=== PATIENT | female | born 1935 | race Caucasian/White ===

== ENCOUNTER 2018-08-26 10:00 | Emergency (ER) | payer MEDICARE ==
--- NOTE | 2018-08-26 10:05 | UC ---
Complaint Female HPI - HPI Summary HPI Summary: 83 yo female presents with LLQ pain and left flank pain for the last 3 days. She describes the pain as constant in her LLQ/bladder and intermittently radiates to her left flank. Last BM was this morning and was normal - no blood. She denies injury or worsening pain with movement. She denies urinary burning, frequency, or pressure. She has applied a heating pad to the area, which helps a little. - History Of Current Complaint Chief Complaint: UCGU Stated Complaint: BACK PAIN Time Seen by Provider: 08/26/18 10:04 Hx Obtained From: Patient Onset/Duration: Gradual Onset Timing: Constant Severity Initially: Mild Severity Currently: Moderate Pain Intensity: 4 Pain Scale Used: 0-10 Numeric - Allergies/Home Medications Allergies/Adverse Reactions: Allergies Allergy/AdvReac Type Severity Reaction Status Date / Time metformin Allergy Diarrhea Verified 08/26/18 10:11 Home Medications: Home Medications Furosemide TAB* [Lasix TAB*] 20 mg PO DAILY 08/26/18 [History Confirmed 08/26/18 ] Linagliptin (NF) [Tradjenta (NF)] 5 mg PO DAILY 08/26/18 [History Confirmed ] Pioglitazone TAB* [Actos TAB*] 30 mg PO DAILY 08/26/18 [History Confirmed ] Rivaroxaban TAB(*) [Xarelto 15 mg(*)] 15 mg PO DAILY 08/26/18 [History Confirmed 08/26/18] PMH/Surg Hx/FS Hx/Imm Hx Endocrine History: Diabetes, Dyslipidemia Cardiovascular History: Cardiac Disease, Hypertension - Surgical History Surgical History: Yes Surgery Procedure, Year, and Place: FOOT SURGERY, LEG SURGERY - Social History Occupation: Retired Lives: With Family Alcohol Use: Weekly Alcohol Amount: WINE Substance Use Type: None Smoking Status (MU): Never Smoked Tobacco Review of Systems All Other Systems Reviewed And Are Negative: Yes Constitutional: Positive: Negative Skin: Positive: Negative Respiratory: Positive: Negative Cardiovascular: Positive: Negative Gastrointestinal: Positive: Other - LLQ pain Genitourinary: Positive: Negative Neurovascular: Positive: Negative Musculoskeletal: Positive: Other: - Low back pain Neurological: Positive: Negative Psychological: Positive: Negative Physical Exam - Summary Physical Exam Summary: GENERAL: NAD. WDWN. No pain distress. SKIN: No rashes, sores, lesions, or open wounds. No ecchymosis NECK: Supple. Nontender. No lymphadenopathy. CHEST: CTAB. No r/r/w. No accessory muscle use. Breathing comfortably and in no distress. CV: Pulses intact. Cap refill <2seconds ABDOMEN: Mild LLQ tenderness and left CVA tenderness. Soft. No distention or guarding. Bowel sounds present MSK: No change in pain with B/L LE flexion. Muscle spasm to left lumber paraspinal muscles. TTP. NEURO: Alert. PSYCH: Age appropriate behavior. Triage Information Reviewed: Yes Vital Signs: Vital Signs: Temp Pulse Resp BP Pulse Ox 98.2 F 110 18 159/129 99 08/26/18 10:03 08/26/18 10:03 08/26/18 10:03 08/26/18 10:03 08/26/18 10:03 Laboratory Tests 08/26/18 10:22 POC Urine Color Yellow POC Urine Clarity Slightly cloudy POC Urine pH 7.0 POC Ur Specif Palmer 1.010 POC Urine Protein Negative POC Ur Glucose (UA) Negative POC Urine Ketones Trace A POC Urine Blood Trace-intact A POC Urine Nitrite Negative POC Urine Bilirubin Negative POC Urine Urobilinogen 0.2 POC U Leukocyte Esteras 1+ A Vital Signs Reviewed: Yes Complaint Female Dx - Course Course Of Treatment: BP recheck 160/95 left arm sitting. UA with sign of infection, given pt's atypical UTI presentation and lack of urinary symptoms - a CT abd/pelvis was ordered. CT: IMPRESSION: #. Severe diverticulosis of the colon most marked at the sigmoid colon without findings of acute diverticulitis. #. Normal appendix documented. #. Negative for obstructive uropathy. #. No acute abdominal pelvic pathologic process evident. Will treat with Cipro for UTI and cover for remote likelihood of diverticulitis. Will rx for lidoderm patch to use on her back. Strongly encouraged to f/u with her PCP later this week for a recheck of her symptoms. - Differential Dx/Diagnosis Provider Diagnosis: UTI (urinary tract infection), Diverticulosis, Muscle spasm Discharge - Sign-Out/Discharge Documenting (check all that apply): Patient Departure All imaging exams completed and their final reports reviewed: Yes - Discharge Plan Condition: Stable Disposition: HOME Prescriptions: Ciprofloxacin TAB* [Cipro 500 MG TAB*] 500 mg PO BID #14 tab Lidocaine PATCH 5%* [Lidoderm 5% Patch*] 1 patch TRANSDERM DAILY PRN #12 patch PRN Reason: Pain Patient Education Materials: Diverticulosis (ED), Urinary Tract Infection in Women (DC) Referrals: Lorraine Gallo MD [Primary Care Provider] - 2 Days Additional Instructions: If you develop a fever, shortness of breath, chest pain, new or worsening symptoms - please call your PCP or go to the ED. Your blood pressure was high at todays visit. Please see your primary provider within 4 weeks for recheck and re-evaluation. I recommend that you schedule an appointment later this week with your primary doctor for a recheck of your symptoms - Billing Disposition and Condition Condition: STABLE Disposition: Home
[2018-08-26 11:16] VITALS: BP 160/95
== END 2018-08-26 11:53 | disposition home or self-care (01) ==
LOC: UCEAST 10:00
DX: N39.0 Urinary tract infection, site not specified (principal); K57.30 Diverticulosis of large intestine without perforation or abscess without bleeding; M62.830 Muscle spasm of back; E11.9 Type 2 diabetes mellitus without complications; Z79.84 Long term (current) use of oral hypoglycemic drugs; E78.5 Hyperlipidemia, unspecified; I11.9 Hypertensive heart disease without heart failure; Z88.8 Allergy status to other drugs, medicaments and biological substances
CPT/HCPCS: 74176; 81003; 87086; 99212; G0463

== ENCOUNTER 2018-08-29 17:09 | Emergency (ER) | payer MEDICARE ==
[2018-08-29 17:50] VITALS: BP 138/75
--- NOTE | 2018-08-29 19:02 | UC ---
UC General HPI - HPI Summary HPI Summary: Groin pain off and on all day. And , "my BMS look different." states they are long and thin. pain is in the llq after BM then goes away - History of Current Complaint Chief Complaint: UCGU Stated Complaint: GROIN PAIN Time Seen by Provider: 08/29/18 18:39 Hx Obtained From: Patient Onset/Duration: Sudden Onset, Lasting Days Timing: Intermittent Episodes Lasting: - minutes Onset Severity: Severe Current Severity: Severe Pain Intensity: 7 - Allergy/Home Medications Allergies/Adverse Reactions: Allergies Allergy/AdvReac Type Severity Reaction Status Date / Time metformin Allergy Diarrhea Verified 08/26/18 10:11 PMH/Surg Hx/FS Hx/Imm Hx Previously Healthy: Yes Endocrine History: Diabetes, Thyroid Disease Cardiovascular History: Cardiac Disease - Surgical History Surgical History: Yes Surgery Procedure, Year, and Place: FOOT SURGERY, LEG SURGERY - Family History Known Family History: Positive: Cardiac Disease, Hypertension - Social History Alcohol Use: Weekly Alcohol Amount: WINE Substance Use Type: None Smoking Status (MU): Never Smoked Tobacco Review of Systems All Other Systems Reviewed And Are Negative: Yes Gastrointestinal: Positive: Abdominal Pain Is Patient Immunocompromised?: Yes - diabetes Physical Exam Triage Information Reviewed: Yes Appearance: Well-Appearing, Pain Distress, Obese Vital Signs: Initial Vital Signs Temp 97.6 F 08/29/18 17:46 Pulse 75 08/29/18 17:46 Resp 18 08/29/18 17:46 BP 138/75 08/29/18 17:46 Pulse Ox 98 08/29/18 17:46 Vital Signs Reviewed: Yes Eye Exam: Normal ENT Exam: Normal Dental Exam: Normal Neck exam: Normal Respiratory Exam: Normal Cardiovascular Exam: Normal Abdomen Description: Positive: No Organomegaly, Soft, CVA Tenderness (R) - neg, CVA Tenderness (L) - neg, Other: - LLQ tenderness on palpation Bowel Sounds: Positive: Present Musculoskeletal Exam: Normal Neurological Exam: Normal Psychological Exam: Normal Skin Exam: Normal Course/Dx - Course Course Of Treatment: hx obtained, exam performed ,meds reviewed, UA obtained, reviewed previous visits, treated for cramping and constipation PT HAS CHANGE IN THE CALIBER OF STOOL-I.E. IT IS LONG AND THIN WITH LLQ PAIN, IT IS NOT KNOWN FROM THE NOTES WHETHER SHE HAS HAD RECENT COLONOSCOPY BUT NEEDS TO FOLLOW UP WITH GI FOR FURTHER EVALUATION TO MAKE SURE THIS IS NOT COLORECTAL CA. INFORMED NICK THE NURSE TO CALL AND INFORM PT TO FOLLOWUP WITH GI - Diagnoses Provider Diagnosis: Diverticulosis of colon, Abdominal cramping, Abdominal cramping in left lower quadrant Discharge - Sign-Out/Discharge Documenting (check all that apply): Patient Departure All imaging exams completed and their final reports reviewed: No Studies - Discharge Plan Condition: Stable Disposition: HOME Prescriptions: Dicyclomine CAP* [Bentyl CAP*] 10 mg PO TID PRN #21 cap PRN Reason: Pain Patient Education Materials: Diverticulosis (ED), Diverticulitis Diet (ED) Referrals: Lorraine Gallo MD [Primary Care Provider] - Additional Instructions: 1. take the medication for pain and cramping. 2. Finish your cipro for infection 3. Start the miralzx per directions on the bottle 4. Keep your appointment with your PCP on September 03. - Billing Disposition and Condition Condition: STABLE Disposition: Home
== END 2018-08-29 19:10 | disposition home or self-care (01) ==
LOC: UCEAST 17:09
DX: K57.90 Diverticulosis of intestine, part unspecified, without perforation or abscess without bleeding (principal); R10.32 Left lower quadrant pain; E11.9 Type 2 diabetes mellitus without complications; Z79.84 Long term (current) use of oral hypoglycemic drugs; E07.9 Disorder of thyroid, unspecified; I25.10 Atherosclerotic heart disease of native coronary artery without angina pectoris
CPT/HCPCS: 81003; 99212; G0463

== ENCOUNTER 2018-09-07 14:10 | Emergency (ER) | payer MEDICARE ==
--- OUTSIDE RECORDS SUMMARY | 2018-09-07 14:25 | XMS REPORT | Continuity of Care Document ---
:1935 External Reference #:[id number] Author Name DelmyOnel garciaidi Care Team Providers Name Role Phone Lorraine Gallo MD Primary Care Physician Unavailable Payers Date Identification Numbers Payment Provider Subscriber Policy Number: [id number] Medicare Lianna Hadley PayID: [id number] [facility] [address] [place] [address] Advance Directives Description No Information Available Problems Active Problems Provider Date Type II diabetes mellitus uncontrolled Annie Taylor M.D., FACP Onset: 2009 Hyperlipidemia Annie Taylor M.D., FACP Onset: 12/10/2009 Benign essential hypertension Annie Taylor M.D., FACP Onset: 12/10/2009 Atrial fibrillation Lorraine Gallo M.D. Onset: 05/18/2015 Dyspnea Shelley Grimm MD Onset: 05/26/2015 Asthma without status asthmaticus Shelley Grimm MD Onset: 05/26/2015 Disorder of lung Shelley Grimm MD Onset: 05/26/2015 Obstructive sleep apnea syndrome Shelley Grimm MD Onset: 05/26/2015 Chronic pulmonary heart disease Shelley Grimm MD Onset: 05/26/2015 Family History Date Family Member(s) Observation Comments General Hypertension General Stroke General Pacemaker 2 siblings Father due to Alzheimer's () Disease Mother due to Diabetes () Mother due to Hypertension () : (age 70 First Brother due to Unknown Causes Years) Social History Type Date Description Comments Sex Unknown Marital Status Lives With Alone 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 Tobacco Use Start: Unknown Never Smoked Cigarettes ETOH Use Drinks 5 Alcoholic Beverages Per Week Tobacco Use Start: Unknown Patient has never smoked Recreational Drug Use Never Used Drugs Smoking Status Reviewed: 09/03/18 Patient has never smoked Exercise Type/Frequency Exercises sporadically Allergies, Adverse Reactions, Alerts Active Allergies Reaction Severity Comments Date Metformin diarrhea 01/29/2014 Inactive Allergies No Known Drug Allergy 06/28/2009 Medications Active Medications SIG Qnty Indications Ordering Date Provider Cipro 1 by mouth twice a 14tabs R10.32 Kassie Varn, 09/03/2018 500mg Tablets day for 7 days N.P. Metronidazole one tablet by 21tabs R10.32 Kassie Varn, 09/03/2018 500mg mouth 3 times N.P. Tablets daily for 7 days Dicyclomine HCL one po tid prn 60caps R10.32 Kassie Varn, 09/03/2018 10mg intestinal N.P. Capsules cramping Actos 1 po qd 90tabs E11.9 Lorraine 03/06/2018 30mg Tablets Jada Gallo Wrist Brace/Suede for use at night g G56.01 Lorraine 03/06/2018 Finish/Right/Medium 56.03 Jada Gallo [facility] [place] Relion ALL-In-One For once daily use 1units E11.65 Lorraine 12/05/2017 Compactblood Glucose Jada Gallo Testing System Device Lancets for use once daily 100units E11.65 Lorraine 12/05/2017 33G [facility] [place] dx e11.65 Jada Gallo Relion Blood Glucose For testing once a 100units E11.65 Lorraine 2017 Teststrips day e 11.65 Jada Gallo Strips Benadryl Allergy 1 tab every at 180tabs Lorraine 09/03/2017 25mg bedtime for sleep. Jada Gallo Tablets Advair HFA use 2 inhalations 36gm J45.30 Lorraine 2017 twice daily Jada Gallo 115-21mcg/Act Aerosol Tradjenta 1 by mouth every 90tabs E11.9 Lorraine 05/11/2015 5mg Tablets day Jada Gallo Furosemide take 1 tablet by 30tabs R06.02 Lorraine 05/11/2015 20mg mouth once daily Jada Gallo Tablets Spacer For use with 1units J45.30 Lorraine 02/17/2015 inhalers twice Jada Gallo daily Freestyle Lite Test check fingerstick 50units E13.9 Lorraine 04/05/2014 Strips once daily Jada Gallo Freestyle Lite two times daily or 100units E13.9 Lorraine 04/05/2014 Lancets as directed Jada Gallo Proair HFA 2 puffs 4 times 8.5units J45.30 Lorraine 01/29/2014 daily as needed Jada Gallo 108(90Base) mcg/Act Aerosol Losartan Potassium take 1 tablet by 90tabs I10 Lorraine 10/29/2011 mouth once daily Jada Gallo 50mg Tablets Verapamil HCL ER 1 by mouth every 90tabs Lorraine 09/19/2011 day Jada Gallo 240mg Tablets ER Simvastatin take 1 tablet by 90tabs Lorraine 05/22/2010 10mg mouth at bedtime Jada Gallo Tablets Multivitamins With 1 po qd Unknown Calcium Tablets Cpap nightly Unknown Device Flonase Allergy spray 1 spray in Unknown Relief each nostril twice 50mcg/Act daily as needed Suspension Xarelto take 1 tablet by 30tabs I48.91 Lorraine 15mg Tablets mouth once daily Jada Gallo History Medications Actos take 1/2 tablet 30tabs E11.9 Lorraine 12/05/2017 - 30mg Tablets once daily for 2 Jada Gallo 03/06/2018 weeks, then increase to whole Advair HFA 2 puff twice a 8gm J45.30 Lorraine 01/29/2017 - day Jada Gallo 2017 230-21mcg/Act Aerosol Doxycycline Hyclate 1 tab by mouth 20tabs J45.901 Lorraine 01/29/2017 - twice a day for Jada Gallo 02/28/2017 100mg Tablets 10 days Advair HFA use 2 inhalations 8gm J45.30 Lorraine 07/30/2016 - twice daily Jada Gallo 01/29/2017 115-21mcg/Act Aerosol Oxygen D/c o2 1units G47.33 [facility] D/c o2 1units Shelley Grimm, 06[facility]15/2015 [facility] Chlorthalidone 1 by mouth every 30tabs I50.32 Aguilar Moya 05/30/2015 - 25mg day(Changed to DO Yunier [facility] 07/14/2015 Tablets 1/[address] Gallo on 06/20/15 - see triage) Levothyroxine Sodium 1 by mouth every 30tabs E03.9 [facility] 05/11/2015 - day Jada Gallo 05/11/2015 25mcg Tablets Xarelto 1 by mouth twice 42tabs I48.91 [facility] 05/11/2015 - 15mg Tablets a day for 21 days Jada Gallo 05/30/2015 (stopped at the moment 05/18/15) Symbicort inhale two puffs 30.6units J45.30 [facility] 02/17/2015 - by mouth twice a Jada Gallo 07/30/2016 80-4.5mcg/Act day Aerosol Azithromycin two tabs day one, 6tabs Kassie Aldridge, 09/09/2014 - 250mg one daily till N.P. 09/14/2014 Tablets gone Lasix 1 by mouth every 90tabs Kassie Aldridge, 09/09/2014 - 20mg Tablets in the morning N.P. 11/12/2014 Januvia 1 by mouth every 90tabs E11.9 Lorraine 08/13/2014 - 100mg Tablets day Jada Gallo 08/30/2015 Azithromycin two tabs day one, 6tabs 466.0 Kassie Oly, 07/22/2014 - 250mg one daily till N.P. 08/01/2014 Tablets gone Patanol one drop in each 5ml 995.3 Lorraine 01/29/2014 - 0.1% Solution eye twice daily Jada Gallo 11/12/2014 as needed Fluticasone 2 intranasal 1units 995.3 Lorraine 01/29/2014 - Propionate puffs once daily Jada Gallo 08/13/2014 50mcg/Act Suspension Flovent HFA 2 puffs twice 12units J45.30 [facility] 01/29/2014 - daily [place] 02/17/2015 110mcg/Act Aerosol Atenolol-Chlorthalid 1 PO qd 90tabs I10 [facility] 12/25/2013 - one [place] 05/30/2015 50-25mg Tablets Flovent HFA 2 puffs twice 12gm 493.00 [facility] 05/08/2013 - daily [place] 12/25/2013 110mcg/Act Aerosol Prednisone 4 tabs po days 20tabs 493.00 [facility] 05/08/2013 - 10mg 1-2; 3 tabs po on [place] .Tomas 06/11/2013 Tablets days 3-4, 2 tabs po on days 5-6, 1 tab po days 7-8 Azithromycin 2 tabs po on day 6tabs 493.00 [facility] 05/08/2013 - 250mg 1; 1 tab po qd on [place] 06/11/2013 Tablets days 2-5 Proair HFA 2 puffs 4 times 1units 493.00 [facility] 05/08/2013 - daily as needed Jada Gallo 12/25/2013 108(90Base) mcg/Act Aerosol Klor-Con M20 take 1 tablet by 90tabs [facility] 10/19/2011 - 20Meq mouth once daily Jada Gallo 07/17/2016 Tablets ER Lancettes Fot The use daily or as 50units 250.00 [facility] 07/02/2011 - Freestyle [place] directed [place] 04/05/2014 Lite Atenolol/Chlorthalid take 1/2 tablet 45tabs 250.00 Annie Taylor, 2010 - one by mouth once M.DLois, [facility] 12/25/2013 100-25mg Tablets daily Metformin HCL ER take 1 tablet by 90tabs Annie Taylor, 07/12/2010 - mouth once daily M.D., [facility] 12/25/2013 500mg Tablets ER 24HR Aspirin 1 Daily (Hold x Annie Taylor, 12/10/2009 - 81mg Tablets 3 days ) [facility] Wolf 1 Daily 90tabs Annie Taylor, 12/10/2009 - 30mg Tablets [facility] 12/26/2009 Zocor 1 tablet every 30tabs Annie Taylor, 10/26/2009 - 10mg Tablets night [facility] 05/22/2010 Verapamil HCL CR 1 tablet twice 180tabs Annie Taylor, 10/26/2009 - daily [facility] 09/19/2011 240mg Tablets ER Potassium Chloride 1 tablet daily 90units Annie Taylor, 10/26/2009 - [facility] 10/19/2011 20Meq Packet Metformin ER One Tablet Daily 60units Annie Taylor, 10/26/2009 - 500mg [facility] 08/01/2010 Atenolol-Chlorthalid 1 tablet daily 30tabs Annie Taylor, 10/26/2009 - one [facility] 08/01/2010 100-25mg Tablets Relafen 1 tablet twice 60tabs Annie Taylor, 10/26/2009 - 500mg Tablets daily [facility] 12/26/2009 Percocet 1-2 po q4h prn Unknown - 5-325mg 08/01/2010 Tablets Methyl Cellulose 3 Capsules Three Unknown - Times Daily 08/01/2010 Immunizations CPT Code Status Date Vaccine Reaction Lot # [id number] Given 02/20/2018 Influenza Virus Vaccine, [id number] Quadrivalent, Split, Preservative Free 15581 Given 03/01/2017 Influenza Virus Vaccine, [id number] Quadrivalent, Split, Preservative Free 83009 Given 01/20/2016 Influenza Virus Vaccine, no reacrion noted [id number] Quadrivalent, Split, .... hh Preservative Free 65784 Given 02/17/2015 Influenza Virus Vaccine, [id number] Quadrivalent, Split, Preservative Free 41976 Given 08/13/2014 Pneumococcal Conjugate [id number] Vaccine 13 Valent For Intramuscular Use 39067 Given 01/29/2014 Influenza Virus Vaccine, [id number] Quadrivalent, Split, Preservative Free 26756 Given 03/18/2013 Tdap - [id number] Tetanus/Diptheria/Acellular Pertussis 56817 Given 03/18/2013 Flu Vaccine Split Virus [id number] Preservative Free For Indiv 3Yr Older Q2037 Given 02/25/2012 Fluvirin Im 3Yrs And Older [id number] 13278 Given 10/29/2011 Zoster (Zostavax) [id number] Q2035 Given 04/02/2011 Afluria Vaccine [id number] 26547 Given 01/30/2010 Influenza Virus 3Yrs & Over 32473 Given 05/23/2009 Influenza Virus Vaccine, Pandemic Formulation Vital Signs Date Vital Result Comment 09/03/2018 4:15pm Height 61 inches 5'1" Weight 199.38 lb Heart Rate 67 /min BP Systolic 131 mmHg BP Diastolic 71 mmHg Body Temperature 97.6 F O2 % BldC Oximetry 97 % BMI (Body Mass Index) 37.7 kg/m2 03/06/2018 2:48pm Height 61 inches 5'1" Weight 198.00 lb Heart Rate 83 /min BP Systolic Sitting 143 mmHg BP Diastolic Sitting 77 mmHg O2 % BldC Oximetry 95 % BMI (Body Mass Index) 37.4 kg/m2 02/20/2018 12:01pm Height 61 inches 5'1" Weight 199.00 lb Heart Rate 78 /min BP Systolic Sitting 147 mmHg BP Diastolic Sitting 83 mmHg Body Temperature 98.2 F O2 % BldC Oximetry 95 % BMI (Body Mass Index) 37.6 kg/m2 12/11/2017 1:29pm Height 61 inches 5'1" Weight 195.50 lb Heart Rate 64 /min BP Systolic Sitting 130 mmHg rue lg cuff BP Diastolic Sitting 70 mmHg rue lg cuff BP Systolic Standing 132 mmHg BP Diastolic Standing 72 mmHg Respiratory Rate 18 /min BMI (Body Mass Index) 36.9 kg/m2 Ejection Fraction 55-60% 09/24/2014 echo 12/05/2017 1:20pm Height 61 inches 5'1" Weight 198.00 lb Heart Rate 82 /min BP Systolic Sitting 128 mmHg BP Diastolic Sitting 72 mmHg O2 % BldC Oximetry 96 % BMI (Body Mass Index) 37.4 kg/m2 09/26/2017 1:04pm Height 61 inches 5'1" Weight 199.50 lb Heart Rate 76 /min BP Systolic Sitting 152 mmHg Rue large cuff BP Diastolic Sitting 92 mmHg Rue large cuff Respiratory Rate 18 /min O2 % BldC Oximetry 97 % On Ra BMI (Body Mass Index) 37.7 kg/m2 09/03/2017 2:28pm Weight 198.25 lb Heart Rate 81 /min BP Systolic 120 mmHg BP Diastolic 72 mmHg Body Temperature 98.3 F O2 % BldC Oximetry 95 % 06/04/2017 1:16pm Height 61 inches 5'1" Weight 199.50 lb Heart Rate 81 /min BP Systolic 138 mmHg BP Diastolic 62 mmHg O2 % BldC Oximetry 94 % BMI (Body Mass Index) 37.7 kg/m2 03/01/2017 1:57pm Height 61 inches 5'1" Weight 206.00 lb Heart Rate 89 /min BP Systolic Sitting 120 mmHg BP Diastolic Sitting 76 mmHg Body Temperature 98.6 F O2 % BldC Oximetry 96 % BMI (Body Mass Index) 38.9 kg/m2 01/29/2017 1:07pm Weight 208.50 lb Heart Rate 99 /min BP Systolic 124 mmHg BP Diastolic 80 mmHg Body Temperature 100.1 F O2 % BldC Oximetry 93 % 12/07/2016 1:19pm Height 61 inches 5'1" Weight 209.00 lb ith shoes Heart Rate 78 /min BP Systolic Sitting 142 mmHg Rue large cuff BP Diastolic Sitting 96 mmHg Rue large cuff BP Systolic Standing 136 mmHg Rue large cuff BP Diastolic Standing 100 mmHg Rue large cuff Respiratory Rate 16 /min BMI (Body Mass Index) 39.5 kg/m2 Ejection Fraction 55-60% echo 09/24/14 11/29/2016 1:47pm Height 61 inches 5'1" Weight 209.50 lb Heart Rate 83 /min BP Systolic 120 mmHg BP Diastolic 82 mmHg Body Temperature 99.0 F O2 % BldC Oximetry 95 % BMI (Body Mass Index) 39.6 kg/m2 09/25/2016 1:34pm Height 61 inches 5'1" Weight 210.00 lb Heart Rate 82 /min BP Systolic Sitting 128 mmHg BP Diastolic Sitting 82 mmHg Respiratory Rate 16 /min O2 % BldC Oximetry 96 % BMI (Body Mass Index) 39.7 kg/m2 08/30/2016 1:17pm Height 61 inches 5'1" Weight 211.00 lb Heart Rate 81 /min BP Systolic 128 mmHg BP Diastolic 64 mmHg Body Temperature 98.2 F O2 % BldC Oximetry 92 % BMI (Body Mass Index) 39.9 kg/m2 01/20/2016 1:01pm Weight 201.00 lb with shoes Heart Rate 81 /min BP Systolic Sitting 120 mmHg BP Diastolic Sitting 84 mmHg Body Temperature 97.1 F O2 % BldC Oximetry 97 % Ra 12/13/2015 2:16pm Height 61.5 inches 5'1.50" Weight 200.00 lb Heart Rate 72 /min BP Systolic Sitting 138 mmHg Ra large cuff BP Diastolic Sitting 94 mmHg Ra large cuff BP Systolic Standing 128 mmHg Ra BP Diastolic Standing 90 mmHg Ra Respiratory Rate 16 /min BMI (Body Mass Index) 37.2 kg/m2 Ejection Fraction 55-60% 09/24/14 10/14/2015 1:14pm Weight 199.00 lb Heart Rate 78 /min BP Systolic Sitting 140 mmHg BP Diastolic Sitting 80 mmHg Body Temperature 97.1 F O2 % BldC Oximetry 98 % 09/05/2015 1:26pm Height 61.5 inches 5'1.50" Weight 215.00 lb Heart Rate 95 /min BP Systolic 126 mmHg BP Diastolic 80 mmHg Respiratory Rate 14 /min O2 % BldC Oximetry 97 % BMI (Body Mass Index) 40.0 kg/m2 08/30/2015 2:44pm Height 61.5 inches 5'1.50" Weight 215.00 lb Heart Rate 86 /min BP Systolic Sitting 120 mmHg BP Diastolic Sitting 76 mmHg Respiratory Rate 14 /min Body Temperature 98.0 F O2 % BldC Oximetry 96 % BMI (Body Mass Index) 40.0 kg/m2 07/14/2015 1:26pm Weight 200.00 lb Heart Rate 76 /min BP Systolic Sitting 128 mmHg BP Diastolic Sitting 84 mmHg Respiratory Rate 15 /min Body Temperature 98.0 F O2 % BldC Oximetry 98 % 07/06/2015 1:51pm Height 61 inches 5'1" Weight 197.00 lb Heart Rate 77 /min BP Systolic 142 mmHg BP Diastolic 80 mmHg Respiratory Rate 14 /min O2 % BldC Oximetry 95 % BMI (Body Mass Index) 37.2 kg/m2 06/06/2015 1:53pm Height 61 inches 5'1" Weight 197.00 lb no shoes Heart Rate 70 /min LA BP Systolic Sitting 124 mmHg LA Lg cuff BP Diastolic Sitting 74 mmHg LA Lg cuff BP Systolic Standing 126 mmHg LA Lg cuff BP Diastolic Standing 76 mmHg LA Lg cuff BMI (Body Mass Index) 37.2 kg/m2 Ejection Fraction 55-60% 09/24/14 05/30/2015 2:15pm Height 61 inches 5'1" Weight 198.31 lb with shoes Heart Rate 62 /min BP Systolic 118 mmHg LA Lg cuff BP Diastolic 74 mmHg LA Lg cuff BP Systolic Sitting 126 mmHg Ra LG cuff BP Diastolic Sitting 76 mmHg Ra LG cuff BP Systolic Standing 120 mmHg Ra Lg cuff BP Diastolic Standing 80 mmHg Ra Lg cuff Respiratory Rate 18 /min BMI (Body Mass Index) 37.5 kg/m2 Ejection Fraction 55-60% 09/24/14 05/26/2015 10:01am Height 62 inches 5'2" Weight 196.50 lb Heart Rate 63 /min BP Systolic 130 mmHg BP Diastolic 78 mmHg Respiratory Rate 14 /min O2 % BldC Oximetry 96 % BMI (Body Mass Index) 35.9 kg/m2 Neck Circumference in inches 15.5 05/18/2015 10:20am Weight 198.00 lb Heart Rate 64 /min BP Systolic Sitting 128 mmHg BP Diastolic Sitting 64 mmHg Body Temperature 97.4 F Pain Level 0 O2 % BldC Oximetry 96 % 05/11/2015 12:54pm Weight 221.00 lb Heart Rate 44 /min BP Systolic Sitting 132 mmHg BP Diastolic Sitting 82 mmHg Respiratory Rate 18 /min Body Temperature 97.8 F O2 % BldC Oximetry 96 % 04/15/2015 2:08pm Weight 212.00 lb Heart Rate 58 /min BP Systolic Sitting 122 mmHg BP Diastolic Sitting 80 mmHg Respiratory Rate 14 /min Body Temperature 97.5 F O2 % BldC Oximetry 94 % 02/17/2015 2:38pm Weight 213.00 lb Heart Rate 52 /min BP Systolic Sitting 129 mmHg BP Diastolic Sitting 70 mmHg Body Temperature 96.6 F O2 % BldC Oximetry 92 % 11/12/2014 3:52pm Height 61.75 inches 5'1.75" Weight 212.00 lb Heart Rate 53 /min BP Systolic 130 mmHg BP Diastolic 69 mmHg Body Temperature 98.9 F BMI (Body Mass Index) 39.1 kg/m2 09/15/2014 3:53pm Weight 216.12 lb Heart Rate 57 /min BP Systolic Sitting 149 mmHg BP Diastolic Sitting 81 mmHg Body Temperature 96.9 F O2 % BldC Oximetry 97 % 09/08/2014 4:19pm Height 61.5 inches 5'1.50" Weight 227.00 lb Heart Rate 62 /min BP Systolic 139 mmHg BP Diastolic 67 mmHg Body Temperature 97.8 F O2 % BldC Oximetry 92 % BMI (Body Mass Index) 42.2 kg/m2 08/13/2014 2:54pm Height 61.5 inches 5'1.50" Weight 223.00 lb Heart Rate 41 /min BP Systolic Sitting 128 mmHg BP Diastolic Sitting 70 mmHg Body Temperature 98.2 F O2 % BldC Oximetry 95 % BMI (Body Mass Index) 41.4 kg/m2 07/22/2014 10:45am Weight 224.00 lb Heart Rate 59 /min BP Systolic Sitting 140 mmHg BP Diastolic Sitting 68 mmHg Body Temperature 99.2 F O2 % BldC Oximetry 98 % 04/05/2014 2:25pm Height 61.5 inches 5'1.50" Weight 221.00 lb Heart Rate 52 /min BP Systolic Sitting 130 mmHg BP Diastolic Sitting 78 mmHg Body Temperature 99.1 F O2 % BldC Oximetry 91 % BMI (Body Mass Index) 41.1 kg/m2 01/29/2014 2:14pm Height 61.5 inches 5'1.50" Weight 221.00 lb Heart Rate 58 /min BP Systolic Sitting 132 mmHg BP Diastolic Sitting 72 mmHg Body Temperature 97.8 F O2 % BldC Oximetry 96 % Peak Flow Meter 275 x'3 BMI (Body Mass Index) 41.1 kg/m2 12/25/2013 3:01pm Height 62.25 inches 5'2.25" Weight 219.00 lb Heart Rate 78 /min BP Systolic Sitting 128 mmHg BP Diastolic Sitting 70 mmHg Body Temperature 98.1 F BMI (Body Mass Index) 39.7 kg/m2 07/20/2013 2:35pm Weight 224.00 lb Heart Rate 50 /min BP Systolic Sitting 150 mmHg BP Diastolic Sitting 70 mmHg Body Temperature 97.3 F 06/11/2013 12:52pm Weight 223.00 lb Heart Rate 60 /min BP Systolic 126 mmHg BP Diastolic 82 mmHg 05/11/2013 12:56pm Weight 223.00 lb Heart Rate 45 /min BP Systolic 138 mmHg BP Diastolic 74 mmHg O2 % BldC Oximetry 91 % 05/08/2013 1:53pm Weight 231.00 lb Heart Rate 44 /min BP Systolic Sitting 140 mmHg BP Diastolic Sitting 70 mmHg Body Temperature 97.1 F O2 % BldC Oximetry 88 % after walking without o2; 96 after Rx Peak Flow Meter 200 180 And 190. Second time 200, 160 and 200 03/18/2013 10:29am Height 62.25 inches 5'2.25" Weight 227.00 lb Heart Rate 44 /min BP Systolic 128 mmHg BP Diastolic 78 mmHg BMI (Body Mass Index) 41.2 kg/m2 08/25/2012 9:53am Weight 223.00 lb Heart Rate 60 /min BP Systolic Sitting 130 mmHg BP Diastolic Sitting 76 mmHg 02/25/2012 10:36am Height 61.75 inches 5'1.75" Weight 219.00 lb Heart Rate 48 /min BP Systolic Sitting 122 mmHg BP Diastolic Sitting 70 mmHg BMI (Body Mass Index) 40.4 kg/m2 10/29/2011 11:18am Height 61.75 inches 5'1.75" Weight 219.25 lb Heart Rate 54 /min irregular BP Systolic Sitting 150 mmHg repeat BP 138/88 BP Diastolic Sitting 90 mmHg repeat BP 138/88 BMI (Body Mass Index) 40.4 kg/m2 07/02/2011 11:10am Height 61.75 inches 5'1.75" Weight 223.25 lb with shoes Heart Rate 56 /min BP Systolic Sitting 112 mmHg BP Diastolic Sitting 70 mmHg BMI (Body Mass Index) 41.2 kg/m2 04/02/2011 9:57am Height 61.75 inches 5'1.75" Weight 219.75 lb Heart Rate 60 /min BP Systolic Sitting 136 mmHg L BP Diastolic Sitting 70 mmHg L BMI (Body Mass Index) 40.5 kg/m2 11/08/2010 10:05am Height 61.75 inches 5'1.75" Weight 216.00 lb Heart Rate 70 /min BP Systolic Sitting 124 mmHg BP Diastolic Sitting 80 mmHg BMI (Body Mass Index) 39.8 kg/m2 08/01/2010 11:32am Weight 216.00 lb Heart Rate 60 /min BP Systolic 16 mmHg BP Diastolic 90 mmHg 01/30/2010 11:34am Heart Rate 52 /min BP Systolic 130 mmHg BP Diastolic 70 mmHg Results Test Date Facility Test Result H/L Range Note Ua Routine 09/03/2018 [facility] Ua Specific [place] 1010 Ua PH 6 Ua Color yellow Ua Appera clear Ua WBC ++ Ua Protein trace Ua Glucose negative Ua Ketones negative Ua Bilirubin negative Ua Urobilinogen negative Ua Nitrite negative Ua Occult Blood about 50 Poc Urinalysis 08/29/2018 [facility] Poc Glucose, Negative Negative [address] [place] [address] [phone] Poc Bilirubin, Urine Negative Negative Poc Ketone, Urine Negative Negative Poc Specific [place], Urine <=1.005 Low 1.010-1.030 Poc Blood, Urine Trace-lysed Abnormal Negative Poc pH, Urine 6.0 N 5-9 Poc Protein, Urine Negative Negative Poc Urobilinogen, Urine 0.2 Negative Poc Nitrite, Urine Negative Negative Poc Leukocytes, Urine Negative Negative Poc Color, Urine Light yellow Poc Clarity, Urine Clear 1 Urine Culture And 08/26/2018 [facility] Urine SEE RESULT [address] Culture BEL[place], [place] [id number] [phone] Poc Urinalysis 08/26/2018 [facility] Poc Glucose, Negative Negative [address] [place] [address] [phone] Poc Bilirubin, Urine Negative Negative Poc Ketone, Urine Trace Abnormal Negative Poc Specific [place], Urine 1.010 N 1.010-1.030 Poc Blood, Urine Trace-intact Abnormal Negative Poc pH, Urine 7.0 N 5-9 Poc Protein, Urine Negative Negative Poc Urobilinogen, Urine 0.2 Negative Poc Nitrite, Urine Negative Negative Poc Leukocytes, Urine 1+ Abnormal Negative Poc Color, Urine Yellow Poc Clarity, Urine Slightly Cloudy 3 Urinalysis Profile 03/12/2018 [facility] Urine Color Straw [address] [place] [address] [phone] Urine Appearance Clear Urine Specific [place] 1.004 Low 1.010-1.030 Urine pH 7.0 N 5-9 Urine Urobilinogen Negative Negative Urine Ketones Negative Negative Urine Protein Negative Negative Urine Leukocytes Trace Abnormal Negative Urine Blood Negative Negative Urine Nitrite Negative Negative Urine Bilirubin Negative Negative Urine Glucose Negative Negative Urine White Blood Cell Trace(0-5/hpf) Absent Urine Red Blood Cell Absent Absent Urine Bacteria Absent Absent Urine Squamous Epithelial Cell Present Abnormal Absent Urine Culture And 03/12/2018 [facility] Urine Culture SEE RESULT [address] [place], [place] [id number] [phone] Comp Metabolic 02/28/2018 [facility] Sodium 138 mmol/L N 135- [address] [place] [address] [phone] Potassium 5.0 mmol/L N 3.5-5.0 Chloride 102 mmol/L N 101-111 Co2 Carbon Dioxide 28 mmol/L N 22-32 Anion Gap 8 mmol/L N 2-11 Glucose 126 mg/dL High 70-100 Blood Urea Nitrogen 15 mg/dL N 6-24 Creatinine 0.97 mg/dL High 0.51-0.95 BUN/Creatinine Ratio 15.5 N 8-20 Calcium 9.9 mg/dL N 8.6-10.3 Total Protein 6.9 g/dL N 6.4-8.9 Albumin 4.4 g/dL N 3.2-5.2 Globulin 2.5 g/dL N 2-4 Albumin/Globulin Ratio 1.8 N 1-3 Total Bilirubin 0.60 mg/dL N 0.2-1.0 Alkaline Phosphatase 52 U/L N 34-104 Alt 14 U/L N 7-52 Ast 18 U/L N 13-39 Egfr Non- 54.8 >60 Egfr 66.4 >60 6 Laboratory test 02/28/2018 [facility] Hemoglobin A1c 6.9 % High 4.0-5.6 [address] (Glyco HGB) [place] [address] [phone] CBC Auto Diff 02/28/2018 [facility] White Blood 6.7 N 3.5- 10.[address] Count 10^3/[place] [address] [phone] Red Blood Count 4.26 10^6/uL N 4.00-5.40 Hemoglobin 13.7 g/dL N 12.0-16.0 Hematocrit 41 % N 35-47 Mean Corpuscular Volume 96 fL N 80-97 Mean Corpuscular Hemoglobin 32 pg High 27-31 Mean Corpuscular HGB Conc 34 g/dL N 31-36 Red Cell Distribution Width 14 % N 10.5-15 Platelet Count 288 10^3/uL N 150-450 Mean Platelet Volume 8.4 um3 N 7.4-10.4 Abs Neutrophils 4.1 10^3/uL N 1.5-7.7 Abs Lymphocytes 1.5 10^3/uL N 1.0-4.8 Abs Monocytes 0.8 10^3/uL N 0-0.8 Abs Eosinophils 0.2 10^3/uL N 0-0.6 Abs Basophils 0.1 10^3/uL N 0-0.2 Abs Nucleated RBC 0 10^3/uL Granulocyte % 61.7 % N 38-83 Lymphocyte % 22.8 % Low 25-47 Monocyte % 11.1 % High 0-7 Eosinophil % 3.5 % N 0-6 Basophil % 0.9 % N 0-2 Nucleated Red Blood Cells % 0 Ua Routine 02/20/2018 [facility] Ua Specific Robbins 1.000 Ua PH 6 Ua Color yellow Ua Appera clear Ua WBC ++ Ua Protein trace Ua Glucose negative Ua Ketones negative Ua Bilirubin negative Ua Urobilinogen negative Ua Nitrite negative Ua Occult Blood about 50 Urine Culture And 02/20/2018 [facility] Urine Culture SEE RESULT [address] [place] [address] [phone] Laboratory test 12/05/2017 [facility] Hemoglobin A1c 8.9 High 5-7 finding Urine Microalbumin 09/03/2017 [facility] Ur Microalbumin < 15.[address] (mg/L) mg/[place] [address] [phone] Urine Creatinine 60.28 mg/dL Urine Microalbumin/Creatinine TNP ug/mg <31 9 Laboratory test 09/03/2017 [facility] Hemoglobin A1c 7.9 High 5-7 finding Lipid Profile 05/28/2017 [facility] Triglycerides 124 mg/dL 10 (Trig/Chol/HDL) [address] [place] [address] [phone] Cholesterol 140 mg/dL 11 HDL Cholesterol 52.0 mg/dL 12 LDL Cholesterol 63 mg/dL 13 Comp Metabolic Panel 05/28/2017 [facility] Sodium 137 mmol/L N 133-[address] [place] [address] [phone] Potassium 4.5 mmol/L N 3.5-5.0 Chloride 101 mmol/L N 101-111 Co2 Carbon Dioxide 29 mmol/L N 22-32 Anion Gap 7 mmol/L N 2-11 Glucose 199 mg/dL High 70-100 Blood Urea Nitrogen 14 mg/dL N 6-24 Creatinine 0.87 mg/dL N 0.51-0.95 BUN/Creatinine Ratio 16.1 N 8-20 Calcium 10.1 mg/dL N 8.6-10.3 Total Protein 6.9 g/dL N 6.4-8.9 Albumin 4.3 g/dL N 3.2-5.2 Globulin 2.6 g/dL N 2-4 Albumin/Globulin Ratio 1.7 N 1-3 Total Bilirubin 0.70 mg/dL N 0.2-1.0 Alkaline Phosphatase 58 U/L N 34-104 Alt 14 U/L N 7-52 Ast 17 U/L N 13-39 Egfr Non- 62.2 >60 Egfr 80.0 >60 14 Laboratory test 05/28/2017 [facility] Hemoglobin A1c 8.1 % High 4.0-5.6 [address] (Glyco HGB) [place] [address] [phone] CBC Auto Diff 02/21/2017 [facility] White Blood 9.3 N 3.5- 10.[address] Count 10^3/[place] [address] [phone] Red Blood Count 4.78 10^6/uL N 4.0-5.4 Hemoglobin 15.1 g/dL N 12.0-16.0 Hematocrit 45 % N 35-47 Mean Corpuscular Volume 94 fL N 80-97 Mean Corpuscular Hemoglobin 32 pg High 27-31 Mean Corpuscular HGB Conc 34 g/dL N 31-36 Red Cell Distribution Width 14 % N 10.5-15 Platelet Count 274 10^3/uL N 150-450 Mean Platelet Volume 9 um3 N 7.4-10.4 Abs Neutrophils 5.9 10^3/uL N 1.5-7.7 Abs Lymphocytes 2.0 10^3/uL N 1.0-4.8 Abs Monocytes 1.0 10^3/uL High 0-0.8 Abs Eosinophils 0.3 10^3/uL N 0-0.6 Abs Basophils 0.1 10^3/uL N 0-0.2 Abs Nucleated RBC 0 10^3/uL N Granulocyte % 63.6 % N 38-83 Lymphocyte % 22.0 % Low 25-47 Monocyte % 10.6 % High 1-9 Eosinophil % 2.7 % N 0-6 Basophil % 1.1 % N 0-2 Nucleated Red Blood Cells % 0 N Basic Metabolic Panel 02/21/2017 [facility] Sodium 134 mmol/L N 133-[address] [place] [address] [phone] Potassium 4.6 mmol/L N 3.5-5.0 Chloride 100 mmol/L Low 101-111 Co2 Carbon Dioxide 25 mmol/L N 22-32 Anion Gap 9 mmol/L N 2-11 Glucose 174 mg/dL High 70-100 Blood Urea Nitrogen 15 mg/dL N 6-24 Creatinine 0.94 mg/dL N 0.51-0.95 BUN/Creatinine Ratio 16.0 N 8-20 Calcium 10.0 mg/dL N 8.6-10.3 Egfr Non- 57.0 N >60 Egfr 73.3 N >60 16 Laboratory test 02/21/2017 [facility] Hemoglobin A1c 8.0 % High 4.0-5.6 [address] (Glyco HGB) [place] [address] [phone] Basic Metabolic 11/01/2016 [facility] Sodium 137 N 133-[address] mmol/[place] [address] [phone] Potassium 4.3 mmol/L N 3.5-5.0 Chloride 99 mmol/L Low 101-111 Co2 Carbon Dioxide 28 mmol/L N 22-32 Anion Gap 10 mmol/L N 2-11 Glucose 165 mg/dL High 70-100 Blood Urea Nitrogen 18 mg/dL N 6-24 Creatinine 0.96 mg/dL High 0.51-0.95 BUN/Creatinine Ratio 18.8 N 8-20 Calcium 10.1 mg/dL N 8.6-10.3 Egfr Non- 55.6 N >60 Egfr 71.6 N >60 18 Laboratory test 11/01/2016 [facility] Hemoglobin A1c 8.1 % High Less than [address] (Glyco HGB) 6.0 [place] [address] [phone] Basic Metabolic 08/08/2016 [facility] Sodium 136 N 133-[address] mmol/[place] [address] [phone] Potassium 4.4 mmol/L N 3.5-5.0 Chloride 99 mmol/L Low 101-111 Co2 Carbon Dioxide 29 mmol/L N 22-32 Anion Gap 8 mmol/L N 2-11 Glucose 254 mg/dL High 70-100 Blood Urea Nitrogen 20 mg/dL N 6-24 Creatinine 0.92 mg/dL N 0.51-0.95 BUN/Creatinine Ratio 21.7 High 8-20 Calcium 9.9 mg/dL N 8.6-10.3 Egfr Non- 58.4 N >60 Egfr 75.2 N >60 20 Lipid Profile 07/16/2016 [facility] Triglycerides 112 mg/dL N 21 (Trig/Chol/HDL) [address] [place] [address] [phone] Cholesterol 158 mg/dL N 22 HDL Cholesterol 51.8 mg/dL N 23 LDL Cholesterol 84 mg/dL N 24 Comp Metabolic Panel 07/16/2016 [facility] Sodium 137 mmol/L N 133-[address] [place] [address] [phone] Potassium 5.3 mmol/L High 3.5-5.0 Chloride 103 mmol/L N 101-111 Co2 Carbon Dioxide 27 mmol/L N 22-32 Anion Gap 7 mmol/L N 2-11 Glucose 202 mg/dL High 70-100 Blood Urea Nitrogen 23 mg/dL N 6-24 Creatinine 0.92 mg/dL N 0.51-0.95 BUN/Creatinine Ratio 25.0 High 8-20 Calcium 10.1 mg/dL N 8.6-10.3 Total Protein 6.9 g/dL N 6.4-8.9 Albumin 4.3 g/dL N 3.2-5.2 Globulin 2.6 g/dL N 2-4 Albumin/Globulin Ratio 1.7 N 1-3 Total Bilirubin 0.60 mg/dL N 0.2-1.0 Alkaline Phosphatase 66 U/L N 34-104 Alt 12 U/L N 7-52 Ast 15 U/L N 13-39 Egfr Non- 58.4 N >60 Egfr 75.2 N >60 25 Laboratory test 07/16/2016 [facility] Hemoglobin A1c 8.0 % High Less [address] (Glyco HGB) than 6.0 [place] [address] [phone] Urine 07/16/2016 [facility] Urine 167.15 N Microalbumin [address] Creatinine mg/[place] [address] [phone] Ur Microalbumin (mg/L) 69.1 mg/L N Urine Microalbumin/Creatinine 41.3 ug/mg High <31 Basic Metabolic Panel 01/13/2016 [facility] Sodium 137 mmol/L N 133-[address] [place] [address] [phone] Potassium 4.8 mmol/L N 3.5-5.0 Chloride 103 mmol/L N 101-111 Co2 Carbon Dioxide 30 mmol/L N 22-32 Anion Gap 4 mmol/L N 2-11 Glucose 167 mg/dL High 70-100 Blood Urea Nitrogen 19 mg/dL N 6-24 Creatinine 0.86 mg/dL N 0.51-0.95 BUN/Creatinine Ratio 22.1 High 8-20 Calcium 10.2 mg/dL N 8.6-10.3 Egfr Non- 63.3 N >60 Egfr 81.4 N >60 28 Laboratory test 01/13/2016 [facility] Hemoglobin A1c 6.9 % High Less than [address] (Glyco HGB) 6.[address] [place] [address] [phone] Basic Metabolic 10/19/2015 [facility] Sodium 136 N 133-[address] mmol/[place] [address] [phone] Potassium 4.8 mmol/L N 3.5-5.0 Chloride 97 mmol/L Low 101-111 Co2 Carbon Dioxide 29 mmol/L N 22-32 Anion Gap 10 mmol/L N 2-11 Glucose 174 mg/dL High 70-100 Blood Urea Nitrogen 17 mg/dL N 6-24 Creatinine 0.97 mg/dL High 0.51-0.95 BUN/Creatinine Ratio 17.5 N 8-20 Calcium 10.1 mg/dL N 8.6-10.3 Egfr Non- 55.1 N >60 Egfr 70.9 N >60 30 Lipid Profile 08/25/2015 [facility] Triglycerides 112 mg/dL N 31 (Trig/Chol/HDL) [address] [place] [address] [phone] Cholesterol 162 mg/dL N 32 HDL Cholesterol 73.3 mg/dL N 33 LDL Cholesterol 66 mg/dL N 34 Comp Metabolic Panel 08/25/2015 [facility] Sodium 136 mmol/L N 133-[address] [place] [address] [phone] Potassium 4.6 mmol/L N 3.5-5.0 Chloride 100 mmol/L Low 101-111 Co2 Carbon Dioxide 28 mmol/L N 22-32 Anion Gap 8 mmol/L N 2-11 Glucose 152 mg/dL High 70-100 Blood Urea Nitrogen 15 mg/dL N 6-24 Creatinine 0.89 mg/dL N 0.51-0.95 BUN/Creatinine Ratio 16.9 N 8-20 Calcium 9.9 mg/dL N 8.6-10.3 Total Protein 6.7 g/dL N 6.4-8.9 Albumin 4.3 g/dL N 3.2-5.2 Globulin 2.4 g/dL N 2-4 Albumin/Globulin Ratio 1.8 N 1-3 Total Bilirubin 1.00 mg/dL N 0.2-1.0 Alkaline Phosphatase 56 U/L N 34-104 Alt 14 U/L N 7-52 Ast 18 U/L N 13-39 Egfr Non- 60.9 N >60 Egfr 78.3 N >60 35 Laboratory test 08/25/2015 [facility] TSH (Thyroid 3.84 N 0.34 -5.60 [address] Stim Horm) ?IU/[place] [address] [phone] Urine 08/25/2015 [facility] Ur Microalbumin 129.0 N Microalbumin [address] (mg/L) mg/[place] [address] [phone] Urine Creatinine 174.04 mg/dL N Urine Microalbumin/Creatinine 74.1 ug/mg High <31 Laboratory test 08/25/2015 [facility] Hemoglobin A1c 6.8 % High Less than [address] (Glyco HGB) 6.0 [place] [address] [phone] Comp Metabolic 06/17/2015 [facility] Sodium 134 N 133-[address] mmol/[place] [address] [phone] Potassium 4.4 mmol/L N 3.5-5.0 Chloride 96 mmol/L Low 101-111 Co2 Carbon Dioxide 30 mmol/L N 22-32 Anion Gap 8 mmol/L N 2-11 Glucose 176 mg/dL High 70-100 Blood Urea Nitrogen 19 mg/dL N 6-24 Creatinine 1.02 mg/dL High 0.51-0.95 BUN/Creatinine Ratio 18.6 N 8-20 Calcium 10.7 mg/dL High 8.6-10.3 Total Protein 7.6 g/dL N 6.4-8.9 Albumin 4.5 g/dL N 3.2-5.2 Globulin 3.1 g/dL N 2-4 Albumin/Globulin Ratio 1.5 N 1-3 Total Bilirubin 0.60 mg/dL N 0.2-1.0 Alkaline Phosphatase 64 U/L N 34-104 Alt 16 U/L N 7-52 Ast 19 U/L N 13-39 Egfr Non- 52.0 N >60 Egfr 66.9 N >60 38 CBC Auto Diff 06/17/2015 [facility] White Blood 9.8 10^3/uL N 3.5-10.[address] [place] [address] [phone] Red Blood Count 4.92 10^6/uL N 4.0-5.4 Hemoglobin 15.3 g/dL N 12.0-16.0 Hematocrit 45 % N 35-47 Mean Corpuscular Volume 91 fL N 80-97 Mean Corpuscular Hemoglobin 31 pg N 27-31 Mean Corpuscular HGB Conc 34 g/dL N 31-36 Red Cell Distribution Width 14 % N 10.5-15 Platelet Count 339 10^3/uL N 150-450 Mean Platelet Volume 8 um3 N 7.4-10.4 Abs Neutrophils 6.7 10^3/uL N 1.5-7.7 Abs Lymphocytes 1.8 10^3/uL N 1.0-4.8 Abs Monocytes 0.8 10^3/uL N 0-0.8 Abs Eosinophils 0.3 10^3/uL N 0-0.6 Abs Basophils 0.1 10^3/uL N 0-0.2 Abs Nucleated RBC 0.01 10^3/uL N Granulocyte % 68.9 % N 38-83 Lymphocyte % 18.5 % Low 25-47 Monocyte % 8.3 % N 1-9 Eosinophil % 3.2 % N 0-6 Basophil % 1.1 % N 0-2 Nucleated Red Blood Cells % 0.1 N Protein 06/17/2015 [facility] Total 8.0 Abnormal 6.3 - Electrophoresis [address] [facility] ([place], [place]) Protein(Pep) g/dL 7.9 [place] [address] [phone] Albumin 3.8 g/dL N 3.4-4.7 Alpha-1 Globulin 0.3 g/dL N 0.1-0.3 Alpha-2 Globulin 1.4 g/dL Abnormal 0.6-1.0 Beta Globulin 1.1 g/dL N 0.7-1.2 Gamma Globulin 1.5 g/dL N 0.6-1.6 Albumin/Globulin Ratio 0.89 N Impression See Comment N 39 Pthi 06/17/2015 [facility] Calcium (PTH Intact) 10.6 mg/dL High 8.6-10.[address] [place] [address] [phone] PTH Intact 2.5 pmol/L N 1.3-9.3 Laboratory test 06/17/2015 [facility] TSH (Thyroid 5.62 High 0.34-5.[address] Stim Horm) ?IU/[place] [address] [phone] Free T4 (Free Thyroxine) 0.84 ng/dL N 0.61-1.12 T3 Free 3.40 pg/mL N 2.5-3.9 Basic Metabolic Panel 05/18/2015 [facility] Sodium 134 mmol/L N 133-[address] [place] [address] [phone] Potassium 4.4 mmol/L N 3.5-5.0 Chloride 93 mmol/L Low 101-111 Co2 Carbon Dioxide 31 mmol/L N 22-32 Anion Gap 10 mmol/L N 2-11 Glucose 155 mg/dL High 70-100 Blood Urea Nitrogen 28 mg/dL High 6-24 Creatinine 1.04 mg/dL High 0.51-0.95 BUN/Creatinine Ratio 26.9 High 8-20 Calcium 10.6 mg/dL High 8.6-10.3 Egfr Non- 50.9 N >60 Egfr 65.4 N >60 40 Laboratory test 05/04/2015 [facility] B-Type 918 pg/mL High [address] [place] [address] Peptide BNP [phone] Hemoglobin A1c (Glyco HGB) 7.0 % High Less than 6.0 42 TSH (Thyroid Stim Horm) 16.53 ?IU/mL High 0.34-5.60 Comp Metabolic Panel 05/04/2015 [facility] Sodium 134 mmol/L N 133-145 [address] [place] [address] [phone] Potassium 4.6 mmol/L N 3.5-5.0 Chloride 96 mmol/L Low 101-111 Co2 Carbon Dioxide 29 mmol/L N 22-32 Anion Gap 9 mmol/L N 2-11 Glucose 156 mg/dL High 70-100 Blood Urea Nitrogen 24 mg/dL N 6-24 Creatinine 1.30 mg/dL High 0.51-0.95 BUN/Creatinine Ratio 18.5 N 8-20 Calcium 10.1 mg/dL N 8.6-10.3 Total Protein 6.5 g/dL N 6.4-8.9 Albumin 4.3 g/dL N 3.2-5.2 Globulin 2.2 g/dL N 2-4 Albumin/Globulin Ratio 2.0 N 1-3 Total Bilirubin 0.80 mg/dL N 0.2-1.0 Alkaline Phosphatase 54 U/L N 34-104 Alt 11 U/L N 7-52 Ast 19 U/L N 13-39 Egfr Non- 39.3 N >60 Egfr 50.6 N >60 43 Order 04/15/2015 [facility] O2 sat see note Comp Metabolic Panel 02/18/2015 [facility] Sodium 131 mmol/L Low 133-[address] [place] [address] [phone] Potassium 3.8 mmol/L N 3.5-5.0 Chloride 96 mmol/L Low 101-111 Co2 Carbon Dioxide 28 mmol/L N 22-32 Anion Gap 7 mmol/L N 2-11 Glucose 172 mg/dL High 70-100 Blood Urea Nitrogen 30 mg/dL High 6-24 Creatinine 0.89 mg/dL N 0.51-0.95 BUN/Creatinine Ratio 33.7 High 8-20 Calcium 10.1 mg/dL N 8.6-10.3 Total Protein 7.2 g/dL N 6.4-8.9 Albumin 4.6 g/dL N 3.2-5.2 Globulin 2.6 g/dL N 2-4 Albumin/Globulin Ratio 1.8 N 1-3 Total Bilirubin 1.00 mg/dL N 0.2-1.0 Alkaline Phosphatase 45 U/L N 34-104 Alt 14 U/L N 7-52 Ast 17 U/L N 13-39 Egfr Non- 61.0 N >60 Egfr 78.5 N >60 44 CBC Auto 02/18/2015 [facility] White Blood 11.8 10^3/uL High 4.8-10.[address] [place] [address] [phone] Red Blood Count 4.04 10^6/uL N 4.0-5.4 Hemoglobin 13.2 g/dL N 12.0-16.0 Hematocrit 39 % N 35-47 Mean Corpuscular Volume 97 fL N 80-97 Mean Corpuscular Hemoglobin 33 pg High 27-31 Mean Corpuscular HGB Conc 34 g/dL N 31-36 Red Cell Distribution Width 14 % N 10.5-15 Platelet Count 252 10^3/uL N 150-450 Mean Platelet Volume 8 um3 N 7.4-10.4 Abs Neutrophils 9.1 10^3/uL High 1.5-7.7 Abs Lymphocytes 1.5 10^3/uL N 1.0-4.8 Abs Monocytes 0.9 10^3/uL High 0-0.8 Abs Eosinophils 0.1 10^3/uL N 0-0.6 Abs Basophils 0.1 10^3/uL N 0-0.2 Abs Nucleated RBC 0 10^3/uL N Granulocyte % 77.3 % N 38-83 Lymphocyte % 12.8 % Low 25-47 Monocyte % 8.0 % N 1-9 Eosinophil % 1.0 % N 0-6 Basophil % 0.9 % N 0-2 Nucleated Red Blood Cells % 0 N Laboratory test 02/18/2015 [facility] Inr/Protime 1.10 High 0.78-1.[address] [place] [address] [phone] Partial Thrombo Time PTT 23.8 seconds Low 26.0-36.3 Laboratory test 02/17/2015 [facility] Hemoglobin A1c 6.6 5-7 finding Laboratory test 11/09/2014 [facility] Hemoglobin A1c 7.5 % High Less than [address] (Glyco HGB) 6.0 [place] [address] [phone] Basic Metabolic 11/09/2014 [facility] Sodium 133 N 133-[address] mmol/[place] [address] [phone] Potassium 4.1 mmol/L N 3.5-5.0 Chloride 92 mmol/L Low 101-111 Co2 Carbon Dioxide 31 mmol/L N 22-32 Anion Gap 10 mmol/L N 2-11 Glucose 173 mg/dL High 70-100 Blood Urea Nitrogen 24 mg/dL N 6-24 Creatinine 1.08 mg/dL High 0.51-0.95 BUN/Creatinine Ratio 22.2 High 8-20 Calcium 10.2 mg/dL N 8.6-10.3 Egfr Non- 48.8 N >60 Egfr 62.8 N >60 46 Basic Metabolic Panel 10/14/2014 [facility] Sodium 135 mmol/L N 133-[address] [place] [address] [phone] Potassium 4.2 mmol/L N 3.5-5.0 Chloride 93 mmol/L Low 101-111 Co2 Carbon Dioxide 33 mmol/L High 22-32 Anion Gap 9 mmol/L N 2-11 Glucose 189 mg/dL High 70-100 Blood Urea Nitrogen 25 mg/dL High 6-24 Creatinine 1.20 mg/dL High 0.51-0.95 BUN/Creatinine Ratio 20.8 High 8-20 Calcium 10.1 mg/dL N 8.6-10.3 Egfr Non- 43.2 N >60 Egfr 55.6 N >60 47 CBC Auto Diff 09/09/2014 White Blood Count 10.6 10^3/uL N 4.8-10.8 Red Blood Count 4.26 10^6/uL N 4.0-5.4 Hemoglobin 14.5 g/dL N 12.0-16.0 Hematocrit 42 % N 35-47 Mean Corpuscular Volume 98 fL High 80-97 Mean Corpuscular Hemoglobin 34 pg High 27-31 Mean Corpuscular HGB Conc 35 g/dL N 31-36 Red Cell Distribution Width 13 % N 10.5-15 Platelet Count 273 10^3/uL N 150-450 Mean Platelet Volume 9 um3 N 7.4-10.4 Abs Neutrophils 7.4 10^3/uL N 1.5-7.7 Abs Lymphocytes 1.9 10^3/uL N 1.0-4.8 Abs Monocytes 1.0 10^3/uL High 0-0.8 Abs Eosinophils 0.2 10^3/uL N 0-0.6 Abs Basophils 0.1 10^3/uL N 0-0.2 Abs Nucleated RBC 0 10^3/uL N Granulocyte % 69.7 % N 38-83 Lymphocyte % 17.6 % Low 25-47 Monocyte % 9.6 % High 1-9 Eosinophil % 2.1 % N 0-6 Basophil % 1.0 % N 0-2 Nucleated Red Blood Cells % 0 N Laboratory test 09/09/2014 B Type Natriuretic 702 pg/mL N 48 finding Peptide Laboratory test 08/10/2014 Hemoglobin A1c 9.2 % High Less than 6.0 49 finding Lipid Profile 08/10/2014 Triglycerides 213 mg/dL N 50 (Trig/Chol/HDL) Cholesterol 182 mg/dL N 51 HDL Cholesterol 48.9 mg/dL N 52 LDL Cholesterol 91 mg/dL N 53 Urine Microalbumin Random 08/10/2014 Ur Microalbumin (mg/L) 743.0 mg/L N Urine Creatinine 217.18 mg/dL N Urine Microalbumin/Creatinine 342.1 High Less Than 31 Comp Metabolic Panel 08/10/2014 Sodium 136 mmol/L N 133-145 Potassium 4.4 mmol/L N 3.5-5.0 Chloride 97 mmol/L Low 101-111 Co2 Carbon Dioxide 31 mmol/L N 22-32 Anion Gap 8 mmol/L N 2-11 Glucose 221 mg/dL High 70-100 Blood Urea Nitrogen 21 mg/dL N 6-24 Creatinine 1.03 mg/dL High 0.51-0.95 BUN/Creatinine Ratio 20.4 High 8-20 Calcium 10.3 mg/dL N 8.6-10.3 Total Protein 7.0 g/dL N 6.4-8.9 Albumin 4.4 g/dL N 3.2-5.2 Globulin 2.6 g/dL N 2-4 Albumin/Globulin Ratio 1.7 N 1-3 Total Bilirubin 0.90 mg/dL N 0.2-1.0 Alkaline Phosphatase 52 U/L N 34-104 Alt 19 U/L N 7-52 Ast 20 U/L N 13-39 Egfr Non- 51.6 N >60 Egfr 66.3 N >60 54 Laboratory test 04/05/2014 [facility] Hemoglobin A1c 7.9 High 5-7 finding Laboratory test 12/25/2013 [facility] Hemoglobin A1c 6.7 5-7 finding Lipid Profile 07/17/2013 [facility] Triglycerides 182 mg/dL 55 (Trig/Chol/HDL) [address] [place] [address] [phone] Cholesterol 168 mg/dL 56 HDL Cholesterol 50.6 mg/dL 57 LDL Cholesterol 81 mg/dL 58 Comp Metabolic Panel 07/17/2013 [facility] Sodium 137 mmol/L 133-[address] [place] [address] [phone] Potassium 4.0 mmol/L 3.7-5.6 Chloride 99 mmol/L Low 101-111 Co2 Carbon Dioxide 29 mmol/L 22-32 Anion Gap 9 mmol/L 2-11 Glucose 175 mg/dL High 70-100 Blood Urea Nitrogen 19 mg/dL 6-24 Creatinine 0.94 mg/dL 0.51-0.95 BUN/Creatinine Ratio 20.2 High 8-20 Calcium 10.3 mg/dL 8.6-10.3 Total Protein 7.2 g/dL 6.4-8.9 Albumin 4.5 g/dL 3.2-5.2 Globulin 2.7 g/dL 2-4 Albumin/Globulin Ratio 1.7 1-3 Total Bilirubin 0.70 mg/dL 0.2-1.0 Alkaline Phosphatase 56 U/L 34-104 Alt 21 U/L 7-52 Ast 22 U/L 13-39 Egfr Non- 57.4 >60 Egfr 73.9 >60 59 Laboratory test 07/17/2013 [facility] TSH (Thyroid 3.27 0.34- 5.60 [address] Stimulating IU/[place] [address] Horm) [phone] Laboratory test 06/11/2013 [facility] Hemoglobin A1c 7.1 High 5-7 finding Urine 03/18/2013 [facility] Ur Microalbumin 219.0 [address] (mg/L) mg/[place] [address] [phone] Urine Creatinine 48.2 mg/dL Urine Microalbumin/Creatinine 454.4 High Less Than 31 Laboratory test 03/18/2013 [facility] Hemoglobin A1c 7.7 High 5-7 finding Laboratory test 08/25/2012 [facility] Hemoglobin A1c 6.6 5-7 finding Laboratory test 02/25/2012 [facility] Hemoglobin A1c 6.7 5-7 finding Urine Microalbumin 10/26/2011 [facility] Microalbumin (MG/L) 49.0 mg/L Random [address] [place] [address] [phone] Urine Creatinine 111.2 mg/dL [place] Alb/Creatinine Ratio 44.1 UG/MG High Less Than 30 62 Comp Metabolic Panel 10/26/2011 [facility] Sodium 137 mmol/L 135-[address] [place] [address] [phone] Potassium 4.0 mmol/L 3.5-5.0 Chloride 98 mmol/L Low 101-111 Co2 (Carbon Dioxide) 31.0 mmol/L 22-32 Anion Gap 8.0 mmol/L 2-11 63 Glucose 143 mg/dL High 70-100 BUN 14 mg/dL 6-24 Creatinine 0.8 mg/dL 0.50-1.40 One Over Creatinine 1.25 BUN/Creatinine Ratio 17.5 8-20 Calcium 9.7 mg/dL 8.1-9.9 Total Protein 6.3 GM/DL 6.2-8.1 Albumin 4.2 GM/DL 3.2-5.2 Globulin 2.1 GM/DL 2-4 Albumin/Globulin Ratio 2.0 1-3 Bilirubin Total 0.9 mg/dL 0.4-1.5 64 Alkaline Phosphatase 56 U/L 30-110 Alt (SGPT) 20 U/L 14-54 Ast (Sgot) 23 U/L 12-42 eGFR Non- 69.6 > 60 eGFR 89.4 > 60 65 Lipid Profile 10/26/2011 [facility] Triglyceride 158 mg/dL 40 -200 (Trig/Chol/HDL) [address] [place] [address] [phone] Cholesterol 157 mg/dL Less Than 200 66 High Density Lipoprotein 52 mg/dL 40-60 67 Cholesterol/HDL Ratio 3.02 AVERAGE 1-4.44 Low Density Lipoprotein 73 mg/dL Less Than 100 68 Laboratory test 10/26/2011 [facility] Hemoglobin A1c 7.1 % High Less Than [address] 6[address] [place] [address] [phone] Laboratory test 06/28/2011 [facility] Hemoglobin A1c 7.5 % High Less Than [address] 6[address] [place] [address] [phone] Laboratory test 03/15/2011 [facility] Hemoglobin A1c 7.1 % High Less Than [address] 6[address] [place] [address] [phone] Laboratory test 11/01/2010 [facility] Hemoglobin A1c 6.7 % High Less Than [address] 6[address] [place] [address] [phone] Lipid Profile 11/01/2010 [facility] Triglyceride 146 40-200 (Trig/Chol/HDL) [address] mg/[place] [address] [phone] Cholesterol 155 mg/dL Less Than 200 73 High Density Lipoprotein 52 mg/dL 40-60 74 Low Density Lipoprotein 74 mg/dL Less Than 100 75 Cholesterol/HDL Ratio 2.98 AVERAGE 1-4.44 Comp Metabolic Panel 11/01/2010 [facility] Sodium 140 mmol/L 135-[address] [place] [address] [phone] Potassium 4.4 mmol/L 3.5-5.0 Chloride 102 mmol/L 101-111 Co2 (Carbon Dioxide) 29.0 mmol/L 22-32 Anion Gap 9.0 mmol/L 2-11 76 Glucose 163 mg/dL High 70-100 BUN 18 mg/dL 6-24 Creatinine 0.80 mg/dL 0.50-1.40 One Over Creatinine 1.20 BUN/Creatinine Ratio 22.5 High 8-20 Calcium 9.8 mg/dL 8.1-9.9 Total Protein 6.7 GM/DL 6.2-8.1 Albumin 4.2 GM/DL 3.2-5.2 Globulin 2.5 GM/DL 2-4 Albumin/Globulin Ratio 1.7 1-3 Bilirubin Total 0.8 mg/dL 0.4-1.5 77 Alkaline Phosphatase 60 U/L 30-110 Alt (SGPT) 16 U/L 14-54 Ast (Sgot) 23 U/L 12-42 eGFR Non- 69.7 > 60 eGFR 89.7 > 60 78 1 Cigarette Packer: [id number] SEE RESULT BELOW Name: LIANNA HADLEY : [address]: Charissa Prakash MD Acct: [id number] Unit: [id number] AGE: 83 Location: [facility] Re08/26/18 SEX: F Status: DEP ER SPEC: [id number] TIKI: 08/26/18-1025 [facility] DR: Josué CHO REQ: [id number] RECD: 08/26/18-1256 STATUS: PAULA GIRARD DR: Charissa Gallo MD _ SOURCE: URINE SPDESC: ORDERED: Urine Culture Procedure Result Reported Site Urine Culture Final 08/27/18- 1212 ML No growth of clinically significant organisms * ML - Main Lab . END OF REPORT DEPARTMENT OF PATHOLOGY, [address] [place] [address] Cyril Parker M.D. Director [facility] # [id number] Cigarette Packer: [id number] 5 SEE RESULT BELOW Name: LIANNA HADLEY : [address]: Lorraine Gallo MD Acct: [id number] Unit: [id number] AGE: 82 Location: [facility] Re03/12/18 SEX: F Status: REG REF SPEC: [id number] TIKI: 03/12/18-1000 [facility] DR: Lorraine Gallo MD REQ: [id number] RECD: 03/12/18-1225 STATUS: COMP _ SOURCE: URINE [facility]: ORDERED: Urine Culture Procedure Result Reported Site Urine Culture Final 03/14/18- 1128 ML No Growth (<1,000 CFU/mL) * ML - Main Lab . END OF REPORT DEPARTMENT OF PATHOLOGY, [address] [place] [address] Cyril Parker M.D. Director [facility] # [id number] 6 Because ethnic data is not always readily available, this report includes an eGFR for both -Americans and non- Americans. The National Kidney Disease Education Program (NKDEP) does not endorse the use of the MDRD equation for patients that are not between the ages of 18 and 70, are , have extremes of body size, muscle mass, or nutritional status, or are non- or non-. According to the National Kidney Foundation, irrespective of diagnosis, the stage of the disease is based on the level of kidney function: Stage Description GFR(mL/min/1.73 m(2)) 1 Kidney damage with normal or decreased GFR 90 2 Kidney damage with mild decrease in GFR 60-89 3 Moderate decrease in GFR 30-59 4 Severe decrease in GFR 15-29 5 Kidney failure <15 (or dialysis) 7 Therapeutic target for the treatment of diabetes mellitus patients is <7% HBA1C, and in selective patients <6.0%. Please refer to [place] [employer] diabetic care guidelines for further information. 8 SEE RESULT BELOW Name: LIANNA HADLEY : [address]: Lorraine Gallo MD Acct: [id number] Unit: [id number] AGE: 82 Location: [facility] Re02/20/18 SEX: F Status: REG REF SPEC: [id number] TIKI: 02/20/189 [facility] DR: Lorraine Gallo MD REQ: [id number] RECD: 02/20/18 STATUS: COMP _ SOURCE: URINE SPDES: ORDERED: Urine Culture COMMENTS: [id number] Urine Source: Clean Catch Procedure Result Reported Site Urine Culture Final 02/21/18- 1703 ML Few Enterobacteriacae; possible contamination. * ML - Main Lab . END OF REPORT DEPARTMENT OF PATHOLOGY, [address] [place] [address] Cyril Parker M.D. Director [facility] # [id number] Unable to calculate due to low microalbumin 10 Desirable: <150 Borderline High: 150-199 High: 200-499 Very High: >500 11 Desirable: <200 Borderline High: 200-239 High: >239 12 Low: <40 Desirable: 40-60 High: >60 13 Desirable: <100 Near Optimal: 100-129 Borderline High: 130-159 High: 160-189 Very High: >189 14 Because ethnic data is not always readily available, this report includes an eGFR for both -Americans and non- Americans. The National Kidney Disease Education Program (NKDEP) does not endorse the use of the MDRD equation for patients that are not between the ages of 18 and 70, are , have extremes of body size, muscle mass, or nutritional status, or are non- or non-. According to the National Kidney Foundation, irrespective of diagnosis, the stage of the disease is based on the level of kidney function: Stage Description GFR(mL/min/1.73 m(2)) 1 Kidney damage with normal or decreased GFR 90 2 Kidney damage with mild decrease in GFR 60-89 3 Moderate decrease in GFR 30-59 4 Severe decrease in GFR 15-29 5 Kidney failure <15 (or dialysis) 15 Therapeutic target for the treatment of diabetes mellitus patients is <7% HBA1C, and in selective patients <6.0%. Please refer to [employer] [place] diabetic care guidelines for further information. 16 Because ethnic data is not always readily available, this report includes an eGFR for both -Americans and non- Americans. The National Kidney Disease Education Program (NKDEP) does not endorse the use of the MDRD equation for patients that are not between the ages of 18 and 70, are , have extremes of body size, muscle mass, or nutritional status, or are non- or non-. According to the National Kidney Foundation, irrespective of diagnosis, the stage of the disease is based on the level of kidney function: Stage Description GFR(mL/min/1.73 m(2)) 1 Kidney damage with normal or decreased GFR 90 2 Kidney damage with mild decrease in GFR 60-89 3 Moderate decrease in GFR 30-59 4 Severe decrease in GFR 15-29 5 Kidney failure <15 (or dialysis) 17 Therapeutic target for the treatment of diabetes mellitus patients is <7% HBA1C, and in selective patients <6.0%. Please refer to [employer] [place] diabetic care guidelines for further information. 18 Because ethnic data is not always readily available, this report includes an eGFR for both -Americans and non- Americans. The National Kidney Disease Education Program (NKDEP) does not endorse the use of the MDRD equation for patients that are not between the ages of 18 and 70, are , have extremes of body size, muscle mass, or nutritional status, or are non- or non-. According to the National Kidney Foundation, irrespective of diagnosis, the stage of the disease is based on the level of kidney function: Stage Description GFR(mL/min/1.73 m(2)) 1 Kidney damage with normal or decreased GFR 90 2 Kidney damage with mild decrease in GFR 60-89 3 Moderate decrease in GFR 30-59 4 Severe decrease in GFR 15-29 5 Kidney failure <15 (or dialysis) 19 Therapeutic target for the treatment of diabetes Mellitus patients is <7% HBA1C, and in selective patients <6.0%.Please refer to [employer] [place] Diabetic care guidelines for further information. 20 Because ethnic data is not always readily available, this report includes an eGFR for both -Americans and non- Americans. The National Kidney Disease Education Program (NKDEP) does not endorse the use of the MDRD equation for patients that are not between the ages of 18 and 70, are , have extremes of body size, muscle mass, or nutritional status, or are non- or non-. According to the National Kidney Foundation, irrespective of diagnosis, the stage of the disease is based on the level of kidney function: Stage Description GFR(mL/min/1.73 m(2)) 1 Kidney damage with normal or decreased GFR 90 2 Kidney damage with mild decrease in GFR 60-89 3 Moderate decrease in GFR 30-59 4 Severe decrease in GFR 15-29 5 Kidney failure <15 (or dialysis) 21 Desirable <150 Borderline high 150-199 High 200-499 Very High >500 22 Desirable <200 Borderline high 200-239 High >239 23 Low <40 Desirable: 40-60 High: >60 24 Desirable: <100 mg/dL Near Optimal: 100-129 mg/dL Borderline High: 130-159 mg/dL High: 160-189 mg/dL Very High: >189 mg/dL 25 Because ethnic data is not always readily available, this report includes an eGFR for both -Americans and non- Americans. The National Kidney Disease Education Program (NKDEP) does not endorse the use of the MDRD equation for patients that are not between the ages of 18 and 70, are , have extremes of body size, muscle mass, or nutritional status, or are non- or non-. According to the National Kidney Foundation, irrespective of diagnosis, the stage of the disease is based on the level of kidney function: Stage Description GFR(mL/min/1.73 m(2)) 1 Kidney damage with normal or decreased GFR 90 2 Kidney damage with mild decrease in GFR 60-89 3 Moderate decrease in GFR 30-59 4 Severe decrease in GFR 15-29 5 Kidney failure <15 (or dialysis) 26 Therapeutic target for the treatment of diabetes Mellitus patients is <7% HBA1C, and in selective patients <6.0%.Please refer to [employer] Diabetic care guidelines for further information. 27 PT IS FASTING 28 Because ethnic data is not always readily available, this report includes an eGFR for both -Americans and non- Americans. The National Kidney Disease Education Program (NKDEP) does not endorse the use of the MDRD equation for patients that are not between the ages of 18 and 70, are , have extremes of body size, muscle mass, or nutritional status, or are non- or non-. According to the National Kidney Foundation, irrespective of diagnosis, the stage of the disease is based on the level of kidney function: Stage Description GFR(mL/min/1.73 m(2)) 1 Kidney damage with normal or decreased GFR 90 2 Kidney damage with mild decrease in GFR 60-89 3 Moderate decrease in GFR 30-59 4 Severe decrease in GFR 15-29 5 Kidney failure <15 (or dialysis) 29 Therapeutic target for the treatment of diabetes Mellitus patients is <7% HBA1C, and in selective patients <6.0%.Please refer to [employer] Diabetic care guidelines for further information. 30 Because ethnic data is not always readily available, this report includes an eGFR for both -Americans and non- Americans. The National Kidney Disease Education Program (NKDEP) does not endorse the use of the MDRD equation for patients that are not between the ages of 18 and 70, are , have extremes of body size, muscle mass, or nutritional status, or are non- or non-. According to the National Kidney Foundation, irrespective of diagnosis, the stage of the disease is based on the level of kidney function: Stage Description GFR(mL/min/1.73 m(2)) 1 Kidney damage with normal or decreased GFR 90 2 Kidney damage with mild decrease in GFR 60-89 3 Moderate decrease in GFR 30-59 4 Severe decrease in GFR 15-29 5 Kidney failure <15 (or dialysis) 31 Desirable <150 Borderline high 150-199 High 200-499 Very High >500 32 Desirable <200 Borderline high 200-239 High >239 33 Low <40 Desirable: 40-60 High: >60 34 Desirable: <100 mg/dL Near Optimal: 100-129 mg/dL Borderline High: 130-159 mg/dL High: 160-189 mg/dL Very High: >189 mg/dL 35 Because ethnic data is not always readily available, this report includes an eGFR for both -Americans and non- Americans. The National Kidney Disease Education Program (NKDEP) does not endorse the use of the MDRD equation for patients that are not between the ages of 18 and 70, are , have extremes of body size, muscle mass, or nutritional status, or are non- or non-. According to the National Kidney Foundation, irrespective of diagnosis, the stage of the disease is based on the level of kidney function: Stage Description GFR(mL/min/1.73 m(2)) 1 Kidney damage with normal or decreased GFR 90 2 Kidney damage with mild decrease in GFR 60-89 3 Moderate decrease in GFR 30-59 4 Severe decrease in GFR 15-29 5 Kidney failure <15 (or dialysis) 36 FASTING 10 HOUR 37 Therapeutic target for the treatment of diabetes Mellitus patients is <7% HBA1C, and in selective patients <6.0%.Please refer to [employer] Diabetic care guidelines for further information. 38 Because ethnic data is not always readily available, this report includes an eGFR for both -Americans and non- Americans. The National Kidney Disease Education Program (NKDEP) does not endorse the use of the MDRD equation for patients that are not between the ages of 18 and 70, are , have extremes of body size, muscle mass, or nutritional status, or are non- or non-. According to the National Kidney Foundation, irrespective of diagnosis, the stage of the disease is based on the level of kidney function: Stage Description GFR(mL/min/1.73 m(2)) 1 Kidney damage with normal or decreased GFR 90 2 Kidney damage with mild decrease in GFR 60-89 3 Moderate decrease in GFR 30-59 4 Severe decrease in GFR 15-29 5 Kidney failure <15 (or dialysis) 39 RESULT: No apparent monoclonal protein on serum electrophoresis. Test Performed by: [address] [address] Property Technician: Mello Gill II, M.D., Ph.D. 40 Because ethnic data is not always readily available, this report includes an eGFR for both -Americans and non- Americans. The National Kidney Disease Education Program (NKDEP) does not endorse the use of the MDRD equation for patients that are not between the ages of 18 and 70, are , have extremes of body size, muscle mass, or nutritional status, or are non- or non-. According to the National Kidney Foundation, irrespective of diagnosis, the stage of the disease is based on the level of kidney function: Stage Description GFR(mL/min/1.73 m(2)) 1 Kidney damage with normal or decreased GFR 90 2 Kidney damage with mild decrease in GFR 60-89 3 Moderate decrease in GFR 30-59 4 Severe decrease in GFR 15-29 5 Kidney failure <15 (or dialysis) 41 >100 to <200 pg/mL: likely compensated congestive heart failure (CHF) 200 to 400 pg/mL: likely moderate CHF >400 pg/mL: likely moderate to severe CHF 42 Therapeutic target for the treatment of diabetes Mellitus patients is <7% HBA1C, and in selective patients <6.0%.Please refer to [employer] Diabetic care guidelines for further information. 43 Because ethnic data is not always readily available, this report includes an eGFR for both -Americans and non- Americans. The National Kidney Disease Education Program (NKDEP) does not endorse the use of the MDRD equation for patients that are not between the ages of 18 and 70, are , have extremes of body size, muscle mass, or nutritional status, or are non- or non-. According to the National Kidney Foundation, irrespective of diagnosis, the stage of the disease is based on the level of kidney function: Stage Description GFR(mL/min/1.73 m(2)) 1 Kidney damage with normal or decreased GFR 90 2 Kidney damage with mild decrease in GFR 60-89 3 Moderate decrease in GFR 30-59 4 Severe decrease in GFR 15-29 5 Kidney failure <15 (or dialysis) 44 Because ethnic data is not always readily available, this report includes an eGFR for both -Americans and non- Americans. The National Kidney Disease Education Program (NKDEP) does not endorse the use of the MDRD equation for patients that are not between the ages of 18 and 70, are , have extremes of body size, muscle mass, or nutritional status, or are non- or non-. According to the National Kidney Foundation, irrespective of diagnosis, the stage of the disease is based on the level of kidney function: Stage Description GFR(mL/min/1.73 m(2)) 1 Kidney damage with normal or decreased GFR 90 2 Kidney damage with mild decrease in GFR 60-89 3 Moderate decrease in GFR 30-59 4 Severe decrease in GFR 15-29 5 Kidney failure <15 (or dialysis) 45 Therapeutic target for the treatment of diabetes Mellitus patients is <7% HBA1C, and in selective patients <6.0%.Please refer to [employer] Diabetic care guidelines for further information. 46 Because ethnic data is not always readily available, this report includes an eGFR for both -Americans and non- Americans. The National Kidney Disease Education Program (NKDEP) does not endorse the use of the MDRD equation for patients that are not between the ages of 18 and 70, are , have extremes of body size, muscle mass, or nutritional status, or are non- or non-. According to the National Kidney Foundation, irrespective of diagnosis, the stage of the disease is based on the level of kidney function: Stage Description GFR(mL/min/1.73 m(2)) 1 Kidney damage with normal or decreased GFR 90 2 Kidney damage with mild decrease in GFR 60-89 3 Moderate decrease in GFR 30-59 4 Severe decrease in GFR 15-29 5 Kidney failure <15 (or dialysis) 47 Because ethnic data is not always readily available, this report includes an eGFR for both -Americans and non- Americans. The National Kidney Disease Education Program (NKDEP) does not endorse the use of the MDRD equation for patients that are not between the ages of 18 and 70, are , have extremes of body size, muscle mass, or nutritional status, or are non- or non-. According to the National Kidney Foundation, irrespective of diagnosis, the stage of the disease is based on the level of kidney function: Stage Description GFR(mL/min/1.73 m(2)) 1 Kidney damage with normal or decreased GFR 90 2 Kidney damage with mild decrease in GFR 60-89 3 Moderate decrease in GFR 30-59 4 Severe decrease in GFR 15-29 5 Kidney failure <15 (or dialysis) 48 >100 to <200 pg/mL: likely compensated congestive heart failure (CHF) 200 to 400 pg/mL: likely moderate CHF >400 pg/mL: likely moderate to severe CHF [facility] 49 Therapeutic target for the treatment of diabetes Mellitus patients is <7% HBA1C, and in selective patients <6.0%.Please refer to [employer] Diabetic care guidelines for further information. 50 Desirable <150 Borderline high 150-199 High 200-499 Very High >500 51 Desirable <200 Borderline high 200-239 High >239 52 Low <40 Desirable: 40-60 High: >60 53 Desirable: <100 mg/dL Near Optimal: 100-129 mg/dL Borderline High: 130-159 mg/dL High: 160-189 mg/dL Very High: >189 mg/dL 54 Because ethnic data is not always readily available, this report includes an eGFR for both -Americans and non- Americans. The National Kidney Disease Education Program (NKDEP) does not endorse the use of the MDRD equation for patients that are not between the ages of 18 and 70, are , have extremes of body size, muscle mass, or nutritional status, or are non- or non-. According to the National Kidney Foundation, irrespective of diagnosis, the stage of the disease is based on the level of kidney function: Stage Description GFR(mL/min/1.73 m(2)) 1 Kidney damage with normal or decreased GFR 90 2 Kidney damage with mild decrease in GFR 60-89 3 Moderate decrease in GFR 30-59 4 Severe decrease in GFR 15-29 5 Kidney failure <15 (or dialysis) 55 Desirable <150 Borderline high 150-199 High 200-499 Very High >500 56 Desirable <200 Borderline high 200-239 High >239 57 Low <40 Desirable: 40-60 High: >60 58 Desirable <100 Near Optimal 100-129 Borderline high 130-159 High 160-189 Very High >189 59 Because ethnic data is not always readily available, this report includes an eGFR for both -Americans and non- Americans. The National Kidney Disease Education Program (NKDEP) does not endorse the use of the MDRD equation for patients that are not between the ages of 18 and 70, are , have extremes of body size, muscle mass, or nutritional status, or are non- or non-. According to the National Kidney Foundation, irrespective of diagnosis, the stage of the disease is based on the level of kidney function: Stage Description GFR(mL/min/1.73 m(2)) 1 Kidney damage with normal or decreased GFR 90 2 Kidney damage with mild decrease in GFR 60-89 3 Moderate decrease in GFR 30-59 4 Severe decrease in GFR 15-29 5 Kidney failure <15 (or dialysis) 60 FASTING 12 HOUR 61 Microalbuminuria in a random sample is defined as: Microalbumin/Creatinine ratio of 30-299 ug/mg. 62 MICROALBUMINURIA IN A RANDOM SAMPLE IS DEFINED : MICROALBUMIN/CREATININE RATIO OF 30-299 ug/mg. . 63 Anion gap measurement may be of limited value in the presence of any alkalosis, especially in a combined acid base disorder. . 64 A metabolite of Naproxen, O-desmethylnaproxen, has been shown to interfere with the [place] method for measuring total bilirubin. Samples from patients who have taken Naproxen have shown spurious elevation in total bilirubin levels. 65 Because ethnic data is not always readily available, this report includes an eGFR for both -Americans and non- Americans. The National Kidney Disease Education Program (NKDEP) does not endorse the use of the MDRD equation for patients that are not between the ages of 18 and 70, are , have extremes of body size, muscle mass, or nutritional status, or are non- or non-. According to the National Kidney Foundation, irrespective of diagnosis, the stage of the disease is based on the level of kidney function: Stage Description GFR(mL/min/1.73 m(2)) 1 Kidney damage with normal or decreased GFR 90 2 Kidney damage with mild decrease in GFR 60-89 3 Moderate decrease in GFR 30-59 4 Severe decrease in GFR 15-29 5 Kidney failure <15 (or dialysis) 66 CHOLESTEROL INTERPRETATION: Desirable: Less than 200 MG/DL Borderline-High Risk: 200-239 MG/DL High-Risk: 240 MG/DL and over 67 HDL INTERPRETATION: Undesirable: High Risk: Less than 40 MG/DL Desirable: Low Risk: Greater than 60 MG/DL 68 LDL INTERPRETATION: Low Risk Optimal Level: LDL Less than 100 MG/DL Near or Above Optimal: LDL 100-129 MG/DL Borderline High Risk: LDL 130-159 MG/DL High Risk: LDL 160-189 MG/DL Very High Risk: LDL Greater than 189 MG/DL 69 THERAPEUTIC TARGET FOR THE TREATMENT OF DIABETES MELLITUS PATIENTS IS <7% HBA1C, AND IN SELECTIVE PATIENTS <6.0%. PLEASE REFER TO [employer] DIABETIC CARE GUIDELINES FOR FURTHER INFORMATION. 70 THERAPEUTIC TARGET FOR THE TREATMENT OF DIABETES MELLITUS PATIENTS IS <7% HBA1C, AND IN SELECTIVE PATIENTS <6.0%. PLEASE REFER TO [employer] DIABETIC CARE GUIDELINES FOR FURTHER INFORMATION. 71 THERAPEUTIC TARGET FOR THE TREATMENT OF DIABETES MELLITUS PATIENTS IS <7% HBA1C, AND IN SELECTIVE PATIENTS <6.0%. PLEASE REFER TO [employer] DIABETIC CARE GUIDELINES FOR FURTHER INFORMATION. 72 THERAPEUTIC TARGET FOR THE TREATMENT OF DIABETES MELLITUS PATIENTS IS <7% HBA1C, AND IN SELECTIVE PATIENTS <6.0%. PLEASE REFER TO [employer] DIABETIC CARE GUIDELINES FOR FURTHER INFORMATION. 73 CHOLESTEROL INTERPRETATION: Desirable: Less than 200 MG/DL Borderline-High Risk: 200-239 MG/DL High-Risk: 240 MG/DL and over 74 HDL INTERPRETATION: Undesirable: High Risk: Less than 40 MG/DL Desirable: Low Risk: Greater than 60 MG/DL 75 LDL INTERPRETATION: Low Risk Optimal Level: LDL Less than 100 MG/DL Near or Above Optimal: LDL 100-129 MG/DL Borderline High Risk: LDL 130-159 MG/DL High Risk: LDL 160-189 MG/DL Very High Risk: LDL Greater than 189 MG/DL 76 Anion gap measurement may be of limited value in the presence of any alkalosis, especially in a combined acid base disorder. . 77 A metabolite of Naproxen, O-desmethylnaproxen, has been shown to interfere with the Jendrass[place] method for measuring total bilirubin. Samples from patients who have taken Naproxen have shown spurious elevation in total bilirubin levels. 78 Because ethnic data is not always readily available, this report includes an eGFR for both -Americans and non- Americans. The National Kidney Disease Education Program (NKDEP) does not endorse the use of the MDRD equation for patients that are not between the ages of 18 and 70, are , have extremes of body size, muscle mass, or nutritional status, or are non- or non-. According to the National Kidney Foundation, irrespective of diagnosis, the stage of the disease is based on the level of kidney function: Stage Description GFR(mL/min/1.73 m(2)) 1 Kidney damage with normal or decreased GFR 90 2 Kidney damage with mild decrease in GFR 60-89 3 Moderate decrease in GFR 30-59 4 Severe decrease in GFR 15-29 5 Kidney failure <15 (or dialysis) Procedures Date Code Description Status 12/11/2017 43949 EKG Tracing & Interpretation Completed 10/15/2017 19514 Diffusing Capacity Completed 10/15/2017 33910 Plethysmography Determination Lung Volumes & Per Completed Airway Resist 10/15/2017 07862 Pulmonary Function><Bronchodil Completed 10/10/2017 [id number] Diabetic Retinal Eye Exam Completed 12/07/2016 28932 EKG Tracing & Interpretation Completed 04/24/2016 [id number] Diabetic Retinal Eye Exam Completed 12/13/2015 00472 EKG Tracing & Interpretation Completed 06/06/2015 74647 EKG Tracing & Interpretation Completed 06/01/2015 22642 Polysomnography Sleep Staging 4+ Parameters W/Cpap Completed 05/30/2015 65480 EKG Tracing & Interpretation Completed 05/26/2015 33036 Pulmonary Stress Test Simple Completed 05/24/2015 52088 Holter Monitoring 24 HR New Completed 05/23/2015 93211 Holter Monitoring 24 HR New Completed 05/11/2015 28928 EKG Tracing & Interpretation Completed 03/21/2015 70422 Diffusing Capacity Completed 03/21/2015 56782 Plethysmography Determination Lung Volumes & Per Completed Airway Resist 03/21/2015 74249 Pulmonary Function><Bronchodil Completed 02/08/2015 [id number] Diabetic Retinal Eye Exam Completed 09/24/2014 79750 ECHO Transthoracic, Real-Time 2D With Doppler And Completed Color Flow 08/23/2014 [id number] Bone Mineral Density Test Completed 01/11/2014 [id number] Diabetic Retinal Eye Exam Completed 05/08/2013 38685 Inhalation [place] For Acute Airway Obstruction Completed W/Nebulizer/Inhaler 03/18/2013 89316 EKG Tracing & Interpretation Completed 07/25/2012 [id number] Diabetic Retinal Eye Exam Completed 07/01/2009 97484 EKG Tracing & Interpretation Completed 03/18/2006 [id number] Mammogram Completed Encounters Type Date Location Provider Dx Diagnosis Office Visit 03/06/2018 [facility] Internal Lorraine Gallo, E11.9 Type 2 diabetes 2:20p Dheeraj Elias mellitus without complications R31.9 Hematuria, unspecified G56.01 Carpal tunnel syndrome, right upper limb Office Visit 02/20/2018 11:40a [facility] Internal Lorraine R31.9 Hematuria, Dheeraj Gallo M.D. 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 general adult medical exam w/o abnormal findings E11.65 Type 2 diabetes mellitus with hyperglycemia I10 Essential (primary) hypertension Office Visit 06/04/2017 1:20p [facility] [place] E11.65 Type 2 diabetes Dheeraj Gallo M.D. mellitus with hyperglycemia I10 Essential (primary) hypertension E78.5 Hyperlipidemia, unspecified Office Visit 03/01/2017 2:00p [facility] [place] E11.65 Type 2 diabetes Dheeraj Gallo M.D. mellitus with hyperglycemia I10 Essential (primary) hypertension J45.909 Unspecified asthma, uncomplicated Z23 Encounter for immunization Office Visit 01/29/2017 [facility] [place] J45.901 Unspecified asthma 1:00p Dheeraj Gallo M.D. 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 general adult medical exam w/o abnormal findings E11.21 Type 2 diabetes mellitus with diabetic nephropathy I10 Essential (primary) hypertension I48.1 Persistent atrial fibrillation Z12.31 Encntr screen mammogram for malignant neoplasm of breast Office Visit 01/20/2016 1:00p [facility] [place] E11.9 Type 2 diabetes Dheeraj Gallo M.D. mellitus without complications I10 Essential (primary) hypertension M79.671 Pain in right foot Z23 Encounter for immunization Office Visit 12/13/2015 2:40p [place] [facility] Aguilar Moya I48.1 Persistent atrial Of [facility] Faye, DO fibrillation FAC I10 Essential (primary) hypertension G47.33 Obstructive sleep apnea (adult) (pediatric) I50.32 Chronic diastolic (congestive) heart failure I27.2 Other secondary pulmonary hypertension Office Visit 10/14/2015 1:20p [facility] [place] I10 Essential ( primary) Dheeraj Gallo M.D. hypertension E11.9 Type 2 diabetes mellitus without complications Office Visit 09/05/2015 1:30p [facility] [place] G47.33 Obstructive sleep [facility] [place] apnea (adult) [facility] (pediatric) J45.909 Unspecified asthma, uncomplicated Office Visit 08/30/2015 2:40p [facility] [place] Z00.00 Encntr for Medicine Jada Gallo general adult medical exam w/o abnormal findings I10 Essential (primary) hypertension E11.9 Type 2 diabetes mellitus without complications I50.32 Chronic diastolic (congestive) heart failure Office Visit 07/14/2015 1:40p [facility] [place] I10 Essential ( primary) Medicine Jada Gallo hypertension E11.9 Type 2 diabetes mellitus without complications Office Visit 07/06/2015 1:45p [facility] [place] G47.33 Obstructive sleep [facility] [place] apnea (adult) [facility] (pediatric) J45.909 Unspecified asthma, uncomplicated Office Visit 06/06/2015 2:00p [place] [facility] Aguilar S. I48.91 Unspecified atrial Of [facility] Faye, DO fibrillation FACC I50.32 Chronic diastolic (congestive) heart failure G47.33 Obstructive sleep apnea (adult) (pediatric) I10 Essential (primary) hypertension E11.9 Type 2 diabetes mellitus without complications I27.2 Other secondary pulmonary hypertension Office Visit 05/30/2015 3:00p [place] [facility] Aguilar S. I48.91 Unspecified atrial Of [facility] Faye, DO fibrillation FACC I50.32 Chronic diastolic (congestive) heart failure R60.0 Localized edema G47.33 Obstructive sleep apnea (adult) (pediatric) I10 Essential (primary) hypertension E11.9 Type 2 diabetes mellitus without complications I27.2 Other secondary pulmonary hypertension Office Visit 05/26/2015 10:15a [facility] [place] R06.02 Shortness of [facility] [place] breath [facility] J45.909 Unspecified asthma, uncomplicated J98.4 Other disorders of lung G47.33 Obstructive sleep apnea (adult) (pediatric) I27.2 Other secondary pulmonary hypertension Office Visit 05/18/2015 10:30a [facility] [place] I48.91 Unspecified atrial Medicine Jada Gallo fibrillation E03.9 Hypothyroidism, unspecified E11.9 Type 2 diabetes mellitus without complications R06.02 Shortness of breath Office Visit 05/11/2015 1:00p [facility] [place] R06.02 Shortness of Medicine Jada Gallo breath E03.9 Hypothyroidism, unspecified E11.9 Type 2 diabetes mellitus without complications I48.91 Unspecified atrial fibrillation R94.31 Abnormal electrocardiogram [ECG] [EKG] Office Visit 04/15/2015 2:20p [facility] [place] R06.02 Shortness of breath Dheeraj Gallo M.D. Office Visit 02/17/2015 2:40p [facility] [place] E11.9 Type 2 diabetes Dheeraj Gallo M.D. mellitus without complications I10 Essential (primary) hypertension Z23 Encounter for immunization J45.30 Mild persistent asthma, uncomplicated Office Visit 11/12/2014 4:00p [facility] [place] 250.00 Diabetes Mellitus Dheeraj Gallo M.D. W/O Compl Type II Or Unspec Controlled 327.23 Obstructive Sleep Apnea Adult & Pediatric 486 Pneumonia Organism Unspec 719.46 Pain Joint Lower Leg Office Visit 09/15/2014 4:00p [facility] Kassie Oly, 428.0 Congestive Heart Medicine N.P. Failure Unspecified 486 Pneumonia Organism Unspec Office Visit 09/08/2014 4:20p [facility] Kassie Aldridge, 786.05 Shortness Of Medicine N.P. Breath 782.3 Edema Office Visit 08/13/2014 3:00p [facility] [place] V70.0 Examination Dheeraj Gallo M.D. General Medical Routine AT [facility] 250.00 Diabetes Mellitus W/O Compl Type II Or Unspec Controlled 401.1 Hypertension Benign 272.0 Hypercholesterolemia Pure 627.9 Menopausal & Postmenopausal Disorder Unspec V03.82 Streptococcus Pneumoniae Vaccination Spec Other Office Visit 07/22/2014 10:40a [facility] Kassie Aldridge, 466.0 Bronchitis Acute Medicine N.P. 493.92 Asthma Unspec W/ Acute Exacerbation Office Visit 04/05/2014 2:20p [facility] [place] 250.00 Diabetes Mellitus Dheeraj Gallo M.D. W/O Compl Type II Or Unspec Controlled 401.1 Hypertension Benign 493.00 Asthma Extrinsic Unspecified Office Visit 01/29/2014 2:20p [facility] [place] 401.1 Hypertension Dheeraj Gallo M.D. Benign 995.3 Allergy Unspec 250.00 Diabetes Mellitus W/O Compl Type II Or Unspec Controlled 493.00 Asthma Extrinsic Unspecified V04.81 Need For Prophylactic Vaccination & Inoculation/Influenza Office Visit 12/25/2013 2:40p [facility] [place] 250.00 Diabetes Mellitus Dheeraj Gallo M.D. W/O Compl Type II Or Unspec Controlled 401.1 Hypertension Benign 272.0 Hypercholesterolemia Pure 700 Corns & Callosities 995.3 Allergy Unspec Office Visit 07/20/2013 11:40a [facility] Annie Taylor, 250.00 Diabetes Mellitus Medicine MCoco, FACP W/O Compl Type II Or Unspec Controlled 272.0 Hypercholesterolemia Pure Office Visit 06/11/2013 1:00p [facility] [place] Taylor, 250.00 Diabetes Mellitus Medicine M.Tomas, FACP W/O Compl Type II Or Unspec Controlled 493.00 Asthma Extrinsic Unspecified Office Visit 05/11/2013 1:00p [facility] [place] 493.00 Asthma Extrinsic Medicine Jada Gallo Unspecified 380.4 Impacted Cerumen Office Visit 05/08/2013 1:20p [facility] [place] 493.00 Asthma Extrinsic Medicine Jada Gallo Unspecified 401.1 Hypertension Benign Office Visit 03/18/2013 10:20a [facility] Annie Taylor, V70.0 Examination Medicine Jada, FACP General Medical Routine AT Health Care Facility V76.10 Screening For Malignant Neoplasm Breast 250.00 Diabetes Mellitus W/O Compl Type II Or Unspec Controlled 401.1 Hypertension Benign 272.0 Hypercholesterolemia Pure 327.23 Obstructive Sleep Apnea Adult & Pediatric V04.81 Need For Prophylactic Vaccination & Inoculation/Influenza V06.1 Qirvrjtjig-Pysgtnd-Hwxelwkb Combined (DTaP) Office Visit 08/25/2012 10:00a [facility] Annie Taylor, 250.00 Diabetes Mellitus Medicine Jada, FACP W/O Compl Type II Or Unspec Controlled 250.00 Diabetes Mellitus W/O Compl Type II Or Unspec Controlled 700 Corns & Callosities Office Visit 02/25/2012 10:40a [facility] Annie Taylor, 250.00 Diabetes Mellitus Medicine M.Tomas, FACP W/O Compl Type II Or Unspec Controlled 780.52 Insomnia Unspecified 327.23 Obstructive Sleep Apnea Adult & Pediatric V04.81 Need For Prophylactic Vaccination & Inoculation/Influenza Office Visit 10/29/2011 11:00a [facility] Annie Taylor, 250.02 Diabetes Mellitus Medicine MCoco, FACP W/O Compl Type II Or Unspec Type Uncontrol 401.1 Hypertension Benign V04.89 Need For Prophylactic Vaccination & Inoculation Other Virus Office Visit 07/02/2011 11:00a [facility] Annie Taylor, 250.02 Diabetes Mellitus Medicine Jada, FACP W/O Compl Type II Or Unspec Type Uncontrol Office Visit 04/02/2011 10:00a DO Not Use Annie Claudia, v04.81 Need For Maile Elias, FACP Prophylactic Vaccination & Inoculation/Influen za 250.00 Diabetes Mellitus W/O Compl Type II Or Unspec Controlled Office Visit 11/08/2010 10:20a DO Not Use Annie Claudia, 250.00 Diabetes Maile Elias, FACP Mellitus W/O Compl Type II Or Unspec Controlled 401.9 Hypertension Unspec 272.2 Hyperlipidemia Mixed Office Visit 08/01/2010 11:30a DO Not Use Annie Claudia, 250.00 Diabetes Maile Elias, FACP Mellitus W/O Compl Type II Or Unspec Controlled Office Visit 01/30/2010 11:30a DO Not Use Annie Claudia, 250.00 Diabetes Maile Elias, FACP Mellitus W/O Compl Type II Or Unspec Controlled V04.81 Need For Prophylactic Vaccination & Inoculation/Influenza Office Visit 10/31/2009 11:30a DO Not Use Annie Claudia, 250.02 Diabetes Maile Elias, FACP Mellitus W/O Compl Type II Or Unspec Type Uncontrol 780.57 Unspecified Sleep Apnea Office Visit 07/01/2009 DO Not Use Annie Claudia, V72.84 Examination 1:45p Maile Elias, FACP Preoperative Unspec 250.00 Diabetes Mellitus W/O Compl Type II Or Unspec Controlled 401.1 Hypertension Benign Office Visit 05/23/2009 11:15a DO Not Use Annie Claudia, 250.00 Diabetes Maile Elias, FACP Mellitus W/O Compl Type II Or Unspec Controlled 272.4 Hyperlipidemia Other Unspec 401.1 Hypertension Benign V04.81 Need For Prophylactic Vaccination & Inoculation/Influenza Plan of Treatment Future Appointment(s):09/10/2018 2:00 pm - Kassie Aldridge, N.P. at [facility] Xsqjbwve62/14/2019 1:20 pm - [place] Gallo M.D. at [facility] [id number] 1:45 pm - [place] Grimm MD at [facility] - Kassie Aldridge N.P.N39.0 Urinary tract infection, site not specifiedComments:I am sending your urine for culture. I will contact you with your results.R10.32 Left lower quadrant painNew Medication:Cipro 500 mg - 1 by mouth twice a day for 7 daysMetronidazole 500 mg - one tablet by mouth 3 times daily for 7 daysDicyclomine HCL 10 mg - one po tid prn intestinal crampingComments:I believe you have diverticulitis. I have prescribed another week of Cipro 500 mg. Take 1, twice daily, for another 7 days. In addition to this I have prescribed another antibiotic, Metronidazole 500 g. Take 1 tablet, 3 times daily, for 7 days.I advise you to stick to a bland diet.Avoid dairy, raw vegetables, gas producing vegetable, raw fruits, and greasy foods.It's okay to have chicken breast, turkey breast, cooked green beans, cooked carrots, potatoes, yams, onions, green beans, broccoli, cauliflower...If your pain should get worse, you need to go to the ER.Follow up:F/U abd [address] Gallo
--- OUTSIDE RECORDS SUMMARY | 2018-09-07 14:25 | XMS REPORT | Continuity of Care Document ---
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 Tobacco Use [...] G56.01 Lorraine 03/06/2018 Finish/Right/Medium 56.03 Jada Gallo [facility] Relion ALL-In-One For once daily use 1units E11.65 Lorraine 12/05/2017 Compactblood Glucose Jada Gallo Testing System Device Lancets for use once daily 100units E11.65 Lorraine 12/05/2017 33G [facility] dx e11.65 Jada Gallo [...] o2 1units G47.33 [facility] Grimm[facility] D/c o2 1units Shelley Grimm, [facility]/15/2015 [facility] Chlorthalidone 1 by mouth every 30tabs I50.32 Aguilar Moya 05/30/2015 - 25mg day(Changed to DO Yunier [facility] 07/14/2015 Tablets 1/[address] Gallo on 06/20/15 - see triage) Levothyroxine Sodium 1 by mouth every 30tabs E03.9 [facility] 05/11/2015 - day Jada Gallo 05/11/2015 25mcg Tablets Xarelto 1 by mouth twice 42tabs I48.91 [facility] 05/11/2015 - 15mg Tablets a day for 21 days Jada Gallo 05/30/2015 (stopped at the moment 05/18/15) Symbicort inhale two puffs 30.6units J45.30 [facility] 02/17/2015 - by mouth twice a Jada [...] Flovent HFA 2 puffs twice 12units J45.30 [facility] 01/29/2014 - daily [facility] 02/17/2015 110mcg/Act Aerosol Atenolol-Chlorthalid 1 PO qd 90tabs I10 [facility] 12/25/2013 - one [place]ada 05/30/2015 50-25mg Tablets Flovent HFA 2 puffs twice 12gm 493.00 [facility] 05/08/2013 - daily [place]ada 12/25/2013 110mcg/Act Aerosol Prednisone 4 tabs po days 20tabs 493.00 [facility] 05/08/2013 - 10mg 1-2; 3 tabs po on [place] .Tomas 06/11/2013 Tablets days 3-4, 2 tabs po on days 5-6, 1 tab po days 7-8 Azithromycin 2 tabs po on day 6tabs 493.00 [facility] 05/08/2013 - 250mg 1; 1 tab po qd on RedfieldJessica.Tomas 06/11/2013 Tablets days 2-5 Proair HFA 2 puffs 4 times 1units 493.00 [facility] 05/08/2013 - daily as needed Jada Gallo 12/25/2013 108(90Base) mcg/Act Aerosol Klor-Con M20 take 1 tablet by 90tabs [facility] 10/19/2011 - 20Meq mouth once daily Jada Gallo 07/17/2016 Tablets ER Lancettes Fot The use daily or as 50units 250.00 [facility] 07/02/2011 - Freestyle [place] directed RedfieldJada 04/05/2014 Lite Atenolol/Chlorthalid take 1/2 tablet 45tabs 250.00 Annie Taylor, 2010 - one by mouth once M.DLois, [facility] 12/25/2013 100-25mg Tablets daily Metformin HCL ER take 1 tablet by 90tabs Annie Taylor, 07/12/2010 - mouth once daily M.D., [facility] 12/25/2013 500mg Tablets ER 24HR Aspirin 1 Daily (Hold x Annie Taylor, 12/10/2009 - 81mg Tablets 3 days ) [facility] Wolf 1 Daily 90tabs Annie Taylor, 12/10/2009 - 30mg Tablets [facility] 12/26/2009 Zocor 1 tablet every 30tabs Annie Taylor, 10/26/2009 - 10mg Tablets night [facility] 05/22/2010 Verapamil HCL CR 1 tablet twice 180tabs Annie Taylor, 10/26/2009 - daily [facility] 09/19/2011 240mg Tablets ER Potassium Chloride 1 tablet daily 90units Annie Taylor, 10/26/2009 - [facility] 10/19/2011 20Meq Packet Metformin ER One Tablet Daily 60units Annie Taylor, 10/26/2009 - 500mg [facility] 08/01/2010 Atenolol-Chlorthalid 1 tablet daily 30tabs Annie Taylor, 10/26/2009 - one [facility] 08/01/2010 100-25mg Tablets Relafen 1 tablet twice 60tabs Annie Taylor, 10/26/2009 - 500mg Tablets daily [facility] 12/26/2009 Percocet 1-2 po q4h prn Unknown - 5-325mg 08/01/2010 Tablets Methyl Cellulose 3 Capsules Three Unknown - Times Daily 08/01/2010 Immunizations CPT Code Status Date Vaccine Reaction Lot # [id number] Given 02/20/2018 Influenza Virus Vaccine, [id number] Quadrivalent, Split, Preservative Free 80995 Given 03/01/2017 Influenza Virus Vaccine, [id number] Quadrivalent, Split, Preservative Free 04548 Given 01/20/2016 Influenza Virus Vaccine, no reacrion noted [id number] Quadrivalent, Split, .... hh Preservative Free 88607 Given 02/17/2015 Influenza Virus Vaccine, [id number] Quadrivalent, Split, Preservative Free 37749 Given 08/13/2014 Pneumococcal Conjugate [id number] Vaccine 13 Valent For Intramuscular Use 89473 Given 01/29/2014 Influenza Virus Vaccine, [id number] Quadrivalent, Split, Preservative Free 19210 Given 03/18/2013 Tdap - [id number] Tetanus/Diptheria/Acellular Pertussis 19047 Given 03/18/2013 Flu Vaccine Split Virus [id number] Preservative Free For Indiv 3Yr Older Q2037 Given 02/25/2012 Fluvirin Im 3Yrs And Older [id number] 10386 Given 10/29/2011 Zoster (Zostavax) [id number] Q2035 Given 04/02/2011 Afluria Vaccine [id number] 16933 Given 01/30/2010 Influenza Virus 3Yrs & Over 38872 Given 05/23/2009 Influenza Virus Vaccine, Pandemic Formulation [...] Result H/L Range Note Ua Routine 09/03/2018 [facility] Ua Specific [place] 1010 Ua PH 6 Ua Color yellow Ua Appera clear Ua WBC ++ Ua Protein trace Ua Glucose negative Ua Ketones negative Ua Bilirubin negative Ua Urobilinogen negative Ua Nitrite negative Ua Occult Blood about 50 Poc Urinalysis 08/29/2018 [facility] Poc Glucose, Negative Negative [address] [place] [address] [phone] Poc Bilirubin, Urine Negative Negative Poc Ketone, Urine Negative Negative Poc Specific [place], Urine <=1.005 Low 1.010-1.030 Poc Blood, Urine Trace-lysed Abnormal Negative Poc pH, Urine 6.0 N 5-9 Poc Protein, Urine Negative Negative Poc Urobilinogen, Urine 0.2 Negative Poc Nitrite, Urine Negative Negative Poc Leukocytes, Urine Negative Negative Poc Color, Urine Light yellow Poc Clarity, Urine Clear 1 Urine Culture And 08/26/2018 [facility] Urine SEE RESULT [address] Culture BELOW [place], [place] [id number] [phone] Poc Urinalysis 08/26/2018 [facility] Poc Glucose, Negative Negative [address] [place] [address] [phone] Poc Bilirubin, Urine Negative Negative Poc Ketone, Urine Trace Abnormal Negative Poc Specific [place], Urine 1.010 N 1.010-1.030 Poc Blood, Urine Trace-intact Abnormal Negative Poc pH, Urine 7.0 N 5-9 Poc Protein, Urine Negative Negative Poc Urobilinogen, Urine 0.2 Negative Poc Nitrite, Urine Negative Negative Poc Leukocytes, Urine 1+ Abnormal Negative Poc Color, Urine Yellow Poc Clarity, Urine Slightly Cloudy 3 Urinalysis Profile 03/12/2018 [facility] Urine Color Straw [address] [place] [address] [phone] Urine Appearance Clear Urine Specific [place] 1.004 Low 1.010-1.030 Urine pH 7.0 N [...] Present Abnormal Absent Urine Culture And 03/12/2018 [facility] Urine Culture SEE RESULT [address] BELOW [place], [place] [id number] [phone] Comp Metabolic 02/28/2018 [facility] Sodium 138 mmol/L N 135- [address] 5 [place] [address] [phone] Potassium 5.0 mmol/L N 3.5-5.0 Chloride 102 [...] Egfr 66.4 >60 6 Laboratory test 02/28/2018 [facility] Hemoglobin A1c 6.9 % High 4.0-5.6 [address] (Glyco HGB) [place] [address] [phone] CBC Auto Diff 02/28/2018 [facility] White Blood 6.7 N 3.5- 10.[address] Count 10^3/[place] [address] [phone] Red Blood Count 4.26 10^6/uL N 4.00-5.40 [...] Blood Cells % 0 Ua Routine 02/20/2018 [facility] Ua Specific [place] 1.000 Ua PH 6 Ua Color yellow Ua Appera clear Ua WBC ++ Ua Protein trace Ua Glucose negative Ua Ketones negative Ua Bilirubin negative Ua Urobilinogen negative Ua Nitrite negative Ua Occult Blood about 50 Urine Culture And 02/20/2018 [facility] Urine Culture SEE RESULT [address] [place] [address] [phone] Laboratory test 12/05/2017 [facility] Hemoglobin A1c 8.9 High 5-7 finding Urine Microalbumin 09/03/2017 [facility] Ur Microalbumin < 15.[address] (mg/L) mg/[place] [address] [phone] Urine Creatinine 60.28 mg/dL Urine Microalbumin/Creatinine TNP ug/mg <31 9 Laboratory test 09/03/2017 [facility] Hemoglobin A1c 7.9 High 5-7 finding Lipid Profile 05/28/2017 [facility] Triglycerides 124 mg/dL 10 (Trig/Chol/HDL) [address] [place] [address] [phone] Cholesterol 140 mg/dL 11 HDL Cholesterol 52.0 mg/dL 12 LDL Cholesterol 63 mg/dL 13 Comp Metabolic Panel 05/28/2017 [facility] Sodium 137 mmol/L N 133-[address] [place] [address] [phone] Potassium 4.5 mmol/L N 3.5-5.0 Chloride 101 [...] Egfr 80.0 >60 14 Laboratory test 05/28/2017 [facility] Hemoglobin A1c 8.1 % High 4.0-5.6 [address] (Glyco HGB) [place] [address] [phone] CBC Auto Diff 02/21/2017 [facility] White Blood 9.3 N 3.5- 10.[address] Count 10^3/[place] [address] [phone] Red Blood Count 4.78 10^6/uL N 4.0-5.4 [...] % 0 N Basic Metabolic Panel 02/21/2017 [facility] Sodium 134 mmol/L N 133-[address] [place] [address] [phone] Potassium 4.6 mmol/L N 3.5-5.0 Chloride 100 mmol/L Low 101-111 Co2 Carbon Dioxide 25 mmol/L N 22-32 Anion Gap 9 mmol/L N 2-11 Glucose 174 mg/dL High 70-100 Blood Urea Nitrogen 15 mg/dL N 6-24 Creatinine 0.94 mg/dL N 0.51-0.95 BUN/Creatinine Ratio 16.0 N 8-20 Calcium 10.0 mg/dL N 8.6-10.3 Egfr Non- 57.0 N >60 Egfr 73.3 N >60 16 Laboratory test 02/21/2017 [facility] Hemoglobin A1c 8.0 % High 4.0-5.6 [address] (Glyco HGB) [place] [address] [phone] Basic Metabolic 11/01/2016 [facility] Sodium 137 N 133-[address] mmol/[place] [address] [phone] Potassium 4.3 mmol/L N 3.5-5.0 Chloride 99 mmol/L Low 101-111 Co2 Carbon Dioxide 28 mmol/L N 22-32 Anion Gap 10 mmol/L N 2-11 Glucose 165 mg/dL High 70-100 Blood Urea Nitrogen 18 mg/dL N 6-24 Creatinine 0.96 mg/dL High 0.51-0.95 BUN/Creatinine Ratio 18.8 N 8-20 Calcium 10.1 mg/dL N 8.6-10.3 Egfr Non- 55.6 N >60 Egfr 71.6 N >60 18 Laboratory test 11/01/2016 [facility] Hemoglobin A1c 8.1 % High Less than [address] (Glyco HGB) 6.0 [place] [address] [phone] Basic Metabolic 08/08/2016 [facility] Sodium 136 N 133-[address] mmol/[place] [address] [phone] Potassium 4.4 mmol/L N 3.5-5.0 Chloride 99 mmol/L Low 101-111 Co2 Carbon Dioxide 29 mmol/L N 22-32 Anion Gap 8 mmol/L N 2-11 Glucose 254 mg/dL High 70-100 Blood Urea Nitrogen 20 mg/dL N 6-24 Creatinine 0.92 mg/dL N 0.51-0.95 BUN/Creatinine Ratio 21.7 High 8-20 Calcium 9.9 mg/dL N 8.6-10.3 Egfr Non- 58.4 N >60 Egfr 75.2 N >60 20 Lipid Profile 07/16/2016 [facility] Triglycerides 112 mg/dL N 21 (Trig/Chol/HDL) [address] [place] [address] [phone] Cholesterol 158 mg/dL N 22 HDL Cholesterol 51.8 mg/dL N 23 LDL Cholesterol 84 mg/dL N 24 Comp Metabolic Panel 07/16/2016 [facility] Sodium 137 mmol/L N 133-[address] [place] [address] [phone] Potassium 5.3 mmol/L High 3.5-5.0 Chloride 103 [...] 75.2 N >60 25 Laboratory test 07/16/2016 [facility] Hemoglobin A1c 8.0 % High Less [address] (Glyco HGB) than 6.0 [place] [address] [phone] Urine 07/16/2016 [facility] Urine 167.15 N Microalbumin [address] Creatinine mg/[place] [address] [phone] Ur Microalbumin (mg/L) 69.1 mg/L N Urine Microalbumin/Creatinine 41.3 ug/mg High <31 Basic Metabolic Panel 01/13/2016 [facility] Sodium 137 mmol/L N 133-[address] [place] [address] [phone] Potassium 4.8 mmol/L N 3.5-5.0 Chloride 103 mmol/L N 101-111 Co2 Carbon Dioxide 30 mmol/L N 22-32 Anion Gap 4 mmol/L N 2-11 Glucose 167 mg/dL High 70-100 Blood Urea Nitrogen 19 mg/dL N 6-24 Creatinine 0.86 mg/dL N 0.51-0.95 BUN/Creatinine Ratio 22.1 High 8-20 Calcium 10.2 mg/dL N 8.6-10.3 Egfr Non- 63.3 N >60 Egfr 81.4 N >60 28 Laboratory test 01/13/2016 [facility] Hemoglobin A1c 6.9 % High Less than [address] (Glyco HGB) 6.0 [place] [address] [phone] Basic Metabolic 10/19/2015 [facility] Sodium 136 N 133-[address] mmol/[place] [address] [phone] Potassium 4.8 mmol/L N 3.5-5.0 Chloride 97 mmol/L Low 101-111 Co2 Carbon Dioxide 29 mmol/L N 22-32 Anion Gap 10 mmol/L N 2-11 Glucose 174 mg/dL High 70-100 Blood Urea Nitrogen 17 mg/dL N 6-24 Creatinine 0.97 mg/dL High 0.51-0.95 BUN/Creatinine Ratio 17.5 N 8-20 Calcium 10.1 mg/dL N 8.6-10.3 Egfr Non- 55.1 N >60 Egfr 70.9 N >60 30 Lipid Profile 08/25/2015 [facility] Triglycerides 112 mg/dL N 31 (Trig/Chol/HDL) [address] [place] [address] [phone] Cholesterol 162 mg/dL N 32 HDL Cholesterol 73.3 mg/dL N 33 LDL Cholesterol 66 mg/dL N 34 Comp Metabolic Panel 08/25/2015 [facility] Sodium 136 mmol/L N 133-[address] [place] [address] [phone] Potassium 4.6 mmol/L N 3.5-5.0 Chloride 100 [...] 78.3 N >60 35 Laboratory test 08/25/2015 [facility] TSH (Thyroid 3.84 N 0.34 -5.60 [address] Stim Horm) ?IU/[place] [address] [phone] Urine 08/25/2015 [facility] Ur Microalbumin 129.0 N Microalbumin [address] (mg/L) mg/[place] [address] [phone] Urine Creatinine 174.04 mg/dL N Urine Microalbumin/Creatinine 74.1 ug/mg High <31 Laboratory test 08/25/2015 [facility] Hemoglobin A1c 6.8 % High Less than [address] (Glyco HGB) 6.0 [place] [address] [phone] Comp Metabolic 06/17/2015 [facility] Sodium 134 N 133-[address] mmol/[place] [address] [phone] Potassium 4.4 mmol/L N 3.5-5.0 Chloride 96 [...] N >60 38 CBC Auto Diff 06/17/2015 [facility] White Blood 9.8 10^3/uL N 3.5-10.[address] [place] [address] [phone] Red Blood Count 4.92 10^6/uL N 4.0-5.4 [...] Blood Cells % 0.1 N Protein 06/17/2015 [facility] Total 8.0 Abnormal 6.3 - Electrophoresis [address] [facility] Protein(Pep) g/dL 7.9 [place] [address] [phone] Albumin 3.8 g/dL N 3.4-4.7 Alpha-1 Globulin 0.3 g/dL N 0.1-0.3 Alpha-2 Globulin 1.4 g/dL Abnormal 0.6-1.0 Beta Globulin 1.1 g/dL N 0.7-1.2 Gamma Globulin 1.5 g/dL N 0.6-1.6 Albumin/Globulin Ratio 0.89 N Impression See Comment N 39 Pthi 06/17/2015 [facility] Calcium (PTH Intact) 10.6 mg/dL High 8.6-10.[address] [place] [address] [phone] PTH Intact 2.5 pmol/L N 1.3-9.3 Laboratory test 06/17/2015 [facility] TSH (Thyroid 5.62 High 0.34-5.[address] Stim Horm) ?IU/[place] [address] [phone] Free T4 (Free Thyroxine) 0.84 ng/dL N 0.61-1.12 T3 Free 3.40 pg/mL N 2.5-3.9 Basic Metabolic Panel 05/18/2015 [facility] Sodium 134 mmol/L N 133-[address] [place] [address] [phone] Potassium 4.4 mmol/L N 3.5-5.0 Chloride 93 mmol/L Low 101-111 Co2 Carbon Dioxide 31 mmol/L N 22-32 Anion Gap 10 mmol/L N 2-11 Glucose 155 mg/dL High 70-100 Blood Urea Nitrogen 28 mg/dL High 6-24 Creatinine 1.04 mg/dL High 0.51-0.95 BUN/Creatinine Ratio 26.9 High 8-20 Calcium 10.6 mg/dL High 8.6-10.3 Egfr Non- 50.9 N >60 Egfr 65.4 N >60 40 Laboratory test 05/04/2015 [facility] B-Type 918 pg/mL High [address] [place] [address] Peptide BNP [phone] Hemoglobin A1c (Glyco HGB) 7.0 % High Less than 6.0 42 TSH (Thyroid Stim Horm) 16.53 ?IU/mL High 0.34-5.60 Comp Metabolic Panel 05/04/2015 [facility] Sodium 134 mmol/L N 133-145 [address] [place] [address] [phone] Potassium 4.6 mmol/L N 3.5-5.0 Chloride 96 [...] Egfr 50.6 N >60 43 Order 04/15/2015 [facility] O2 sat see note Comp Metabolic Panel 02/18/2015 [facility] Sodium 131 mmol/L Low 133-[address] [place] [address] [phone] Potassium 3.8 mmol/L N 3.5-5.0 Chloride 96 [...] 78.5 N >60 44 CBC Auto 02/18/2015 [facility] White Blood 11.8 10^3/uL High 4.8-10.[address] [place] [address] [phone] Red Blood Count 4.04 10^6/uL N 4.0-5.4 [...] Cells % 0 N Laboratory test 02/18/2015 [facility] Inr/Protime 1.10 High 0.78-1.[address] [place] [address] [phone] Partial Thrombo Time PTT 23.8 seconds Low 26.0-36.3 Laboratory test 02/17/2015 [facility] Hemoglobin A1c 6.6 5-7 finding Laboratory test 11/09/2014 [facility] Hemoglobin A1c 7.5 % High Less than [address] (Glyco HGB) 6.0 [place] [address] [phone] Basic Metabolic 11/09/2014 [facility] Sodium 133 N 133-[address] mmol/[place] [address] [phone] Potassium 4.1 mmol/L N 3.5-5.0 Chloride 92 [...] N >60 46 Basic Metabolic Panel 10/14/2014 [facility] Sodium 135 mmol/L N 133-[address] [place] [address] [phone] Potassium 4.2 mmol/L N 3.5-5.0 Chloride 93 [...] 66.3 N >60 54 Laboratory test 04/05/2014 [facility] Hemoglobin A1c 7.9 High 5-7 finding Laboratory test 12/25/2013 [facility] Hemoglobin A1c 6.7 5-7 finding Lipid Profile 07/17/2013 [facility] Triglycerides 182 mg/dL 55 (Trig/Chol/HDL) [address] [place] [address] [phone] Cholesterol 168 mg/dL 56 HDL Cholesterol 50.6 mg/dL 57 LDL Cholesterol 81 mg/dL 58 Comp Metabolic Panel 07/17/2013 [facility] Sodium 137 mmol/L 133-[address] [place] [address] [phone] Potassium 4.0 mmol/L 3.7-5.6 Chloride 99 mmol/L [...] Egfr 73.9 >60 59 Laboratory test 07/17/2013 [facility] TSH (Thyroid 3.27 0.34- 5.60 [address] Stimulating IU/[place] [address] Horm) [phone] Laboratory test 06/11/2013 [facility] Hemoglobin A1c 7.1 High 5-7 finding Urine 03/18/2013 [facility] Ur Microalbumin 219.0 [address] (mg/L) mg/[place] [address] [phone] Urine Creatinine 48.2 mg/dL Urine Microalbumin/Creatinine 454.4 High Less Than 31 Laboratory test 03/18/2013 [facility] Hemoglobin A1c 7.7 High 5-7 finding Laboratory test 08/25/2012 [facility] Hemoglobin A1c 6.6 5-7 finding Laboratory test 02/25/2012 [facility] Hemoglobin A1c 6.7 5-7 finding Urine Microalbumin 10/26/2011 [facility] Microalbumin (MG/L) 49.0 mg/L Random [address] [place] [address] [phone] Urine Creatinine 111.2 mg/dL Douglas Alb/Creatinine Ratio 44.1 UG/MG High Less Than 30 62 Comp Metabolic Panel 10/26/2011 [facility] Sodium 137 mmol/L 135-[address] [place] [address] [phone] Potassium 4.0 mmol/L 3.5-5.0 Chloride 98 mmol/L [...] 89.4 > 60 65 Lipid Profile 10/26/2011 [facility] Triglyceride 158 mg/dL 40 -200 (Trig/Chol/HDL) [address] [place] [address] [phone] Cholesterol 157 mg/dL Less Than 200 66 High Density Lipoprotein 52 mg/dL 40-60 67 Cholesterol/HDL Ratio 3.02 AVERAGE 1-4.44 Low Density Lipoprotein 73 mg/dL Less Than 100 68 Laboratory test 10/26/2011 [facility] Hemoglobin A1c 7.1 % High Less Than [address] 6.0 [place] [address] [phone] Laboratory test 06/28/2011 [facility] Hemoglobin A1c 7.5 % High Less Than [address] 6.0 [place] [address] [phone] Laboratory test 03/15/2011 [facility] Hemoglobin A1c 7.1 % High Less Than [address] 6[address]0 [place] [address] [phone] Laboratory test 11/01/2010 [facility] Hemoglobin A1c 6.7 % High Less Than [address] 6[address] [place] [address] [phone] Lipid Profile 11/01/2010 [facility] Triglyceride 146 40-200 (Trig/Chol/HDL) [address] mg/[place] [address] [phone] Cholesterol 155 mg/dL Less Than 200 73 High Density Lipoprotein 52 mg/dL 40-60 74 Low Density Lipoprotein 74 mg/dL Less Than 100 75 Cholesterol/HDL Ratio 2.98 AVERAGE 1-4.44 Comp Metabolic Panel 11/01/2010 [facility] Sodium 140 mmol/L 135-[address] [place] [address] [phone] Potassium 4.4 mmol/L 3.5-5.0 Chloride 102 mmol/L [...] 60 eGFR 89.7 > 60 78 1 [place] [employer] Helper: [id number] SEE RESULT BELOW Name: LIANNA HADLEY : [address]: Charissa Prakash MD Acct: [id number] Unit: [id number] AGE: 83 Location: [facility] Re08/26/18 SEX: F Status: DEP ER SPEC: [id number] TIKI: 08/26/18-[address] [facility] [address]: Josué CHO REQ: [id number] RECD: 08/26/18-1256 STATUS: PAULA GIRARD DR: Charissa Gallo MD _ SOURCE: URINE SPDESC: ORDERED: Urine Culture Procedure Result Reported Site Urine Culture Final 08/27/18- 1212 ML No growth of clinically significant organisms * ML - Main Lab . END OF REPORT DEPARTMENT OF PATHOLOGY, [address] [place] [address] Cyril Parker M.D. Director [facility] # [id number] [employer] Line Helper: [id number] [phone] SEE RESULT BELOW Name: LIANNA HADLEY : [address]: Lorraine Gallo MD Acct: [id number] Unit: [id number] AGE: 82 Location: [facility] Re03/12/18 SEX: F Status: REG REF SPEC: [id number] TIKI: 03/12/18-[address] [facility] [address]: Lorraine Gallo MD REQ: [id number] RECD: 03/12/18-1225 STATUS: COMP _ SOURCE: URINE [facility]: ORDERED: Urine Culture Procedure Result Reported Site Urine Culture Final 03/14/18- 1128 ML No Growth (<1,000 CFU/mL) * ML - Main Lab . END OF REPORT DEPARTMENT OF PATHOLOGY, [address] [place] [address] Cyril Parker M.D. Director [facility] # [id number] 6 Because ethnic data is not always [...] in selective patients <6.0%. Please refer to [place] diabetic care guidelines for further information. 8 SEE RESULT BELOW Name: LIANNA HADLEY : [address]: Lorraine Gallo MD Acct: [id number] Unit: [id number] AGE: 82 Location: [facility] Re02/20/18 SEX: F Status: REG REF SPEC: [id number] TIKI: 02/20/[address] [facility] [address]: Lorraine Gallo MD REQ: [id number] RECD: 02/20/18 STATUS: COMP _ SOURCE: URINE SPDES: ORDERED: Urine Culture COMMENTS: [id number] Urine Source: Clean Catch Procedure Result Reported Site Urine Culture Final 02/21/18- 1703 ML Few Enterobacteriacae; possible contamination. * ML - Main Lab . END OF REPORT DEPARTMENT OF PATHOLOGY, [address] [place] [address] Cyril Parker M.D. Director [facility] # [id number] Unable to calculate due to low [...] in selective patients <6.0%. Please refer to [place] diabetic care guidelines for further [...] in selective patients <6.0%. Please refer to [place] diabetic care guidelines for further [...] and in selective patients <6.0%.Please refer to [place] Diabetic care guidelines for further [...] and in selective patients <6.0%.Please refer to [place] Diabetic care guidelines for further [...] and in selective patients <6.0%.Please refer to [place] Diabetic care guidelines for further [...] and in selective patients <6.0%.Please refer to [place] Diabetic care guidelines for further [...] protein on serum electrophoresis. Test Performed by: [address] [address] [place]: Mello Gill II, M.D., Ph.D. 40 Because [...] and in selective patients <6.0%.Please refer to [place] Diabetic care guidelines for further [...] and in selective patients <6.0%.Please refer to [place] Diabetic care guidelines for further [...] and in selective patients <6.0%.Please refer to [place] Diabetic care guidelines for further [...] has been shown to interfere with the [place] method for measuring total bilirubin. Samples from [...] IN SELECTIVE PATIENTS <6.0%. PLEASE REFER TO [employer] DIABETIC CARE GUIDELINES FOR FURTHER INFORMATION. 70 THERAPEUTIC TARGET FOR THE TREATMENT OF DIABETES MELLITUS PATIENTS IS <7% HBA1C, AND IN SELECTIVE PATIENTS <6.0%. PLEASE REFER TO [employer] DIABETIC CARE GUIDELINES FOR FURTHER INFORMATION. 71 THERAPEUTIC TARGET FOR THE TREATMENT OF DIABETES MELLITUS PATIENTS IS <7% HBA1C, AND IN SELECTIVE PATIENTS <6.0%. PLEASE REFER TO [employer] DIABETIC CARE GUIDELINES FOR FURTHER INFORMATION. 72 THERAPEUTIC TARGET FOR THE TREATMENT OF DIABETES MELLITUS PATIENTS IS <7% HBA1C, AND IN SELECTIVE PATIENTS <6.0%. PLEASE REFER TO [employer] DIABETIC CARE GUIDELINES FOR FURTHER [...] dialysis) Procedures Date Code Description Status 12/11/2017 52886 EKG Tracing & Interpretation Completed 10/15/2017 46587 Diffusing Capacity Completed 10/15/2017 30372 Plethysmography Determination Lung Volumes & Per Completed Airway Resist 10/15/2017 15276 Pulmonary Function><Bronchodil Completed 10/10/2017 [id number] Diabetic Retinal Eye Exam Completed 12/07/2016 04776 EKG Tracing & Interpretation Completed 04/24/2016 [id number] Diabetic Retinal Eye Exam Completed 12/13/2015 35173 EKG Tracing & Interpretation Completed 06/06/2015 66973 EKG Tracing & Interpretation Completed 06/01/2015 33573 Polysomnography Sleep Staging 4+ Parameters W/Cpap Completed 05/30/2015 28529 EKG Tracing & Interpretation Completed 05/26/2015 35321 Pulmonary Stress Test Simple Completed 05/24/2015 64767 Holter Monitoring 24 HR New Completed 05/23/2015 93331 Holter Monitoring 24 HR New Completed 05/11/2015 60317 EKG Tracing & Interpretation Completed 03/21/2015 07150 Diffusing Capacity Completed 03/21/2015 48557 Plethysmography Determination Lung Volumes & Per Completed Airway Resist 03/21/2015 03259 Pulmonary Function><Bronchodil Completed 02/08/2015 [id number] Diabetic Retinal Eye Exam Completed 09/24/2014 17314 ECHO Transthoracic, Real-Time 2D With Doppler And Completed Color Flow 08/23/2014 [id number] Bone Mineral Density Test Completed 01/11/2014 732536530 Diabetic Retinal Eye Exam Completed 05/08/2013 86308 Inhalation [place] For Acute Airway Obstruction Completed W/Nebulizer/Inhaler 03/18/2013 25007 EKG Tracing & Interpretation Completed 07/25/2012 [id number] Diabetic Retinal Eye Exam Completed 07/01/2009 26049 EKG Tracing & Interpretation Completed 03/18/2006 [id number] Mammogram Completed Encounters Type Date Location Provider Dx Diagnosis Office Visit 03/06/2018 [facility] Lorraine Gallo, E11.9 Type 2 diabetes 2:20p Dheeraj Elias mellitus without complications R31.9 Hematuria, unspecified G56.01 Carpal tunnel syndrome, right upper limb Office Visit 02/20/2018 11:40a [facility] Lorraine R31.9 Hematuria, Dheeraj Gallo M.D. 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 mellitus with hyperglycemia I10 Essential (primary) hypertension Office Visit 09/26/2017 [facility] J45.909 Unspecified asthma , 1:30p [facility] uncomplicated Aperture Mask Etcher G47.33 Obstructive sleep apnea (adult) (pediatric) E66.09 Other obesity due to excess calories Office Visit 09/03/2017 2:40p [facility] [place] Z00.00 Encntr for Dheeraj Gallo M.D. general adult medical exam w/o abnormal findings E11.65 Type 2 diabetes mellitus with hyperglycemia I10 Essential (primary) hypertension Office Visit 06/04/2017 1:20p [facility] [place] E11.65 Type 2 diabetes Dheeraj Gallo M.D. mellitus with hyperglycemia I10 Essential (primary) hypertension E78.5 Hyperlipidemia, unspecified Office Visit 03/01/2017 2:00p [facility] [place] E11.65 Type 2 diabetes Dheeraj Gallo M.D. mellitus with hyperglycemia I10 Essential (primary) hypertension J45.909 Unspecified asthma, uncomplicated Z23 Encounter for immunization Office Visit 01/29/2017 [facility] [place] J45.901 Unspecified asthma 1:00p Dheeraj Gallo M.D. 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 general adult medical exam w/o abnormal findings E11.21 Type 2 diabetes mellitus with diabetic nephropathy I10 Essential (primary) hypertension I48.1 Persistent atrial fibrillation Z12.31 Encntr screen mammogram for malignant neoplasm of breast Office Visit 01/20/2016 1:00p [facility] [place] E11.9 Type 2 diabetes Dheeraj Gallo M.D. mellitus without complications I10 Essential (primary) hypertension M79.671 Pain in right foot Z23 Encounter for immunization Office Visit 12/13/2015 2:40p [facility] Aguilar Moya I48.1 Persistent atrial Of [facility] Faye, DO fibrillation FAC I10 Essential (primary) hypertension G47.33 Obstructive sleep apnea (adult) (pediatric) I50.32 Chronic diastolic (congestive) heart failure I27.2 Other secondary pulmonary hypertension Office Visit 10/14/2015 1:20p [facility] [place] I10 Essential ( primary) Dheeraj Gallo M.D. hypertension E11.9 Type 2 diabetes mellitus without complications Office Visit 09/05/2015 1:30p [facility] G47.33 Obstructive sleep [facility] apnea (adult) [facility] (pediatric) J45.909 Unspecified asthma, uncomplicated Office Visit 08/30/2015 2:40p [facility] [place] Z00.00 Encntr for Medicine Jada Gallo general adult medical exam w/o abnormal findings I10 Essential (primary) hypertension E11.9 Type 2 diabetes mellitus without complications I50.32 Chronic diastolic (congestive) heart failure Office Visit 07/14/2015 1:40p [facility] [place] I10 Essential ( primary) Medicine Jada Gallo hypertension E11.9 Type 2 diabetes mellitus without complications Office Visit 07/06/2015 1:45p [facility] G47.33 Obstructive sleep [facility] apnea (adult) [facility] (pediatric) J45.909 Unspecified asthma, uncomplicated Office Visit 06/06/2015 2:00p [facility] Aguilar S. I48.91 Unspecified atrial [facility] Faye, DO fibrillation FACC I50.32 Chronic diastolic (congestive) heart failure G47.33 Obstructive sleep apnea (adult) (pediatric) I10 Essential (primary) hypertension E11.9 Type 2 diabetes mellitus without complications I27.2 Other secondary pulmonary hypertension Office Visit 05/30/2015 3:00p [facility] Aguilar S. I48.91 Unspecified atrial [facility] Faye, DO fibrillation FACC I50.32 Chronic diastolic (congestive) heart failure R60.0 Localized edema G47.33 Obstructive sleep apnea (adult) (pediatric) I10 Essential (primary) hypertension E11.9 Type 2 diabetes mellitus without complications I27.2 Other secondary pulmonary hypertension Office Visit 05/26/2015 10:15a [facility] R06.02 Shortness of [facility] breath [facility] J45.909 Unspecified asthma, uncomplicated J98.4 Other disorders of lung G47.33 Obstructive sleep apnea (adult) (pediatric) I27.2 Other secondary pulmonary hypertension Office Visit 05/18/2015 10:30a [facility] [place] I48.91 Unspecified atrial Medicine Jada Gallo fibrillation E03.9 Hypothyroidism, unspecified E11.9 Type 2 diabetes mellitus without complications R06.02 Shortness of breath Office Visit 05/11/2015 1:00p [facility] [place] R06.02 Shortness of Medicine Jada Gallo breath E03.9 Hypothyroidism, unspecified E11.9 Type 2 diabetes mellitus without complications I48.91 Unspecified atrial fibrillation R94.31 Abnormal electrocardiogram [ECG] [EKG] Office Visit 04/15/2015 2:20p [facility] [place] R06.02 Shortness of breath Dheeraj Gallo M.D. Office Visit 02/17/2015 2:40p [facility] [place] E11.9 Type 2 diabetes Dheeraj Gallo M.D. mellitus without complications I10 Essential (primary) hypertension Z23 Encounter for immunization J45.30 Mild persistent asthma, uncomplicated Office Visit 11/12/2014 4:00p [facility] [place] 250.00 Diabetes Mellitus Dheeraj Gallo M.D. W/O Compl Type II Or Unspec Controlled 327.23 Obstructive Sleep Apnea Adult & Pediatric 486 Pneumonia Organism Unspec 719.46 Pain Joint Lower Leg Office Visit 09/15/2014 4:00p [facility] Kassie Oly, 428.0 Congestive Heart Medicine N.P. Failure Unspecified 486 Pneumonia Organism Unspec Office Visit 09/08/2014 4:20p [facility] Kassie Aldridge, 786.05 Shortness Of Medicine N.P. Breath 782.3 Edema Office Visit 08/13/2014 3:00p [facility] [place] V70.0 Examination Dheeraj Gallo M.D. General Medical Routine AT Health Care Facility 250.00 Diabetes Mellitus W/O Compl Type II Or Unspec Controlled 401.1 Hypertension Benign 272.0 Hypercholesterolemia Pure 627.9 Menopausal & Postmenopausal Disorder Unspec V03.82 Streptococcus Pneumoniae Vaccination Spec Other Office Visit 07/22/2014 10:40a [facility] Kassie Aldridge, 466.0 Bronchitis Acute Medicine N.P. 493.92 Asthma Unspec W/ Acute Exacerbation Office Visit 04/05/2014 2:20p [facility] [place] 250.00 Diabetes Mellitus Dheeraj Gallo M.D. W/O Compl Type II Or Unspec Controlled 401.1 Hypertension Benign 493.00 Asthma Extrinsic Unspecified Office Visit 01/29/2014 2:20p [facility] [place] 401.1 Hypertension Dheeraj Gallo M.D. Benign 995.3 Allergy Unspec 250.00 Diabetes Mellitus W/O Compl Type II Or Unspec Controlled 493.00 Asthma Extrinsic Unspecified V04.81 Need For Prophylactic Vaccination & Inoculation/Influenza Office Visit 12/25/2013 2:40p [facility] [place] 250.00 Diabetes Mellitus Dheeraj Gallo M.D. W/O Compl Type II Or Unspec Controlled 401.1 Hypertension Benign 272.0 Hypercholesterolemia Pure 700 Corns & Callosities 995.3 Allergy Unspec Office Visit 07/20/2013 11:40a [facility] Annie Taylor, 250.00 Diabetes Mellitus Medicine MCoco, FACP W/O Compl Type II Or Unspec Controlled 272.0 Hypercholesterolemia Pure Office Visit 06/11/2013 1:00p [facility] Annie Taylor, 250.00 Diabetes Mellitus Medicine M.Tomas, FACP W/O Compl Type II Or Unspec Controlled 493.00 Asthma Extrinsic Unspecified Office Visit 05/11/2013 1:00p [facility] [place] 493.00 Asthma Extrinsic Medicine Jada Gallo Unspecified 380.4 Impacted Cerumen Office Visit 05/08/2013 1:20p [facility] [place] 493.00 Asthma Extrinsic Medicine Jada Gallo Unspecified 401.1 Hypertension Benign Office Visit 03/18/2013 10:20a [facility] Annie Taylor, V70.0 Examination Medicine Jada, FACP General Medical Routine AT Health Care Facility V76.10 Screening For Malignant Neoplasm Breast 250.00 Diabetes Mellitus W/O Compl Type II Or Unspec Controlled 401.1 Hypertension Benign 272.0 Hypercholesterolemia Pure 327.23 Obstructive Sleep Apnea Adult & Pediatric V04.81 Need For Prophylactic Vaccination & Inoculation/Influenza V06.1 Ociolukrmw-Mkozdnw-Zscvuzen Combined (DTaP) Office Visit 08/25/2012 10:00a [facility] Annie Taylor, 250.00 Diabetes Mellitus Medicine Jada, FACP W/O Compl Type II Or Unspec Controlled 250.00 Diabetes Mellitus W/O Compl Type II Or Unspec Controlled 700 Corns & Callosities Office Visit 02/25/2012 10:40a [facility] Annie Taylor, 250.00 Diabetes Mellitus Medicine M.Tomas, FACP W/O Compl Type II Or Unspec Controlled 780.52 Insomnia Unspecified 327.23 Obstructive Sleep Apnea Adult & Pediatric V04.81 Need For Prophylactic Vaccination & Inoculation/Influenza Office Visit 10/29/2011 11:00a [facility] Annie Taylor, 250.02 Diabetes Mellitus Medicine MCoco, FACP W/O Compl Type II Or Unspec Type Uncontrol 401.1 Hypertension Benign V04.89 Need For Prophylactic Vaccination & Inoculation Other Virus Office Visit 07/02/2011 11:00a [facility] Annie Taylor, 250.02 Diabetes Mellitus Medicine [...] Vaccination & Inoculation/Influenza Plan of Treatment Future Appointment(s):09/11/2018 2:00 pm - Lorraine Gallo M.D. at [facility] Rsfvdhgj45/14/2019 1:20 pm - Lorraine Gallo M.D. at [facility] Bbtldaot71/30/2019 1:45 pm - Shelley Grimm MD at [facility]09/03/2018 - Pastor ChoudhuryP.N39.0 Urinary tract infection, site not specifiedComments:I am [...]
[2018-09-07 15:15] LABS: ABS Eosinophils 0.1 10^3/ul (0-0.6); ABS Lymphocytes 0.9 10^3/ul (1.0-4.8); ABS Monocytes 0.7 10^3/ul (0-0.8); ABS Neutrophils 5.8 10^3/ul (1.5-7.7); Hematocrit 43 % (35-47); Hemoglobin 14.3 g/dL (12.0-16.0); Lymphocyte % 11.6 %; Mean Corpuscular HGB Conc 34 g/dL (31-36); Mean Corpuscular Hemoglobin 32 pg (27-31); Mean Corpuscular Volume 95 fL (80-97); Mean Platelet Volume 7.4 fL (7.4-10.4); Platelet Count 240 10^3/uL (150-450); Red Blood Count 4.49 10^6 /uL (3.70-4.87); Red Cell Distribution Width 15 % (10.5-15); White Blood Count 7.5 10^3/uL (3.5-10.8)
[2018-09-07 15:30] LABS: Albumin 4.6 g/dL (3.2-5.2); Albumin/Globulin Ratio 1.8 (1-3); BUN/Creatinine Ratio 9.1 (8-20); C Reactive Protein 2.92 mg/L (<8.01); Calcium 10.3 mg/dL (8.6-10.3); EGFR African American 74.1 (>60); EGFR Non-African American 61.2 (>60); Globulin 2.6 g/dL (2-4); Potassium 3.8 mmol/L (3.5-5.0); Total Bilirubin 0.7 mg/dL (0.2-1.0); Total Protein 7.2 g/dL (6.4-8.9)
--- NOTE | 2018-09-07 15:45 | ED ---
Abdominal Pain/Female - HPI Summary HPI Summary: This patient is an 83 year old female presenting to [facility] with a chief complaint of LLQ abdominal pain. The patient was diagnosed with diverticulitis on 08/26/18/. She was told by her PCP, Dr. Gallo, to come to the ED if her pain worsened. Her pain has not worsened but she is here because it has not gotten better and she has been having abnormal bowel movements. She denies the BM is diarrhea. The patient is taking ABx and pain medication. The patient rates her pain 8/10 in severity. Fluticasone HFA 110 mcg(NF) [Flovent HFA 110 mcg(NF)] 1 puff .SEE ORDER DAILY [History Confirmed 08/29/18] Losartan Potassium 50 mg PO DAILY 02/17/15 [History Confirmed 08/29/18] Multivitamin With C* 1 tab PO DAILY 02/17/15 [History Confirmed 08/29/18] Proair Hfa* 2 puff INH QID 02/17/15 [History Confirmed 08/29/18] Simvastatin TAB(NF) [Zocor(NF)] 10 mg PO DAILY 02/17/15 [History Confirmed 08/29] Verapamil HCl [Verapamil HCl ER] 240 mg PO DAILY 02/17/15 [History Confirmed ] Ciprofloxacin TAB* [Cipro 500 MG TAB*] 500 mg PO BID #14 tab 08/26/18 [Rx Confirmed 08/29/18] Furosemide TAB* [Lasix TAB*] 20 mg PO DAILY 08/26/18 [History Confirmed 08/29/18 ] Lidocaine PATCH 5%* [Lidoderm 5% Patch*] 1 patch TRANSDERM DAILY PRN #12 patch 08/26/18 [Rx Confirmed 08/29/18] Linagliptin (NF) [Tradjenta (NF)] 5 mg PO DAILY 08/26/18 [History Confirmed ] Pioglitazone TAB* [Actos TAB*] 30 mg PO DAILY 08/26/18 [History Confirmed ] Rivaroxaban TAB(*) [Xarelto 15 mg(*)] 15 mg PO DAILY 08/26/18 [History Confirmed 08/29/18] Dicyclomine CAP* [Bentyl CAP*] 10 mg PO TID PRN #21 cap 08/29/18 [Rx] - History of Current Complaint Chief Complaint: EDAbdPain Stated Complaint: DIVERTICULITIS PER PT Time Seen by Provider: 09/07/18 15:34 Hx Obtained From: Patient ?: No Onset/Duration: Sudden Onset Pain Intensity: 8 Pain Scale Used: 0-10 Numeric Location: Discrete At: LLQ Radiates: No Allergies/Adverse Reactions: Allergies Allergy/AdvReac Type Severity Reaction Status Date / Time metformin Allergy Diarrhea Verified 08/26/18 10:11 Home Medications: Home Medications Flagyl 500 MG TAB 500 mg PO DAILY 09/07/18 [History Confirmed 09/07/18] PMH/Surg Hx/FS Hx/Imm Hx Endocrine/Hematology History: Reports: Hx Diabetes - type 2 dm Cardiovascular History: Reports: Hx Congestive Heart Failure, Hx Hypertension Respiratory History: Reports: Hx Asthma, Other Respiratory Problems/Disorders - HX OF PNEUMONIA SEP 08 2014 - Surgical History Surgery Procedure, Year, and Place: FOOT SURGERY, LEG SURGERY Infectious Disease History: No Infectious Disease History: Reports: Hx Shingles Denies: Traveled Outside the [place] in Last 30 Days - Family History Known Family History: Positive: Cardiac Disease, Hypertension - Social History Alcohol Use: Weekly Alcohol Amount: WINE Substance Use Type: Reports: None Smoking Status (MU): Never Smoked Tobacco Review of Systems Negative: Fever Positive: Abdominal Pain. Negative: Diarrhea All Other Systems Reviewed And Are Negative: Yes Physical Exam - Summary Physical Exam Summary: VITAL SIGNS: Reviewed. GENERAL: Patient is a well-developed and nourished FEMALE who is lying comfortable in the stretcher. Patient is not in any acute respiratory distress. HEAD AND FACE: No signs of trauma. No ecchymosis, hematomas or skull depressions. No sinus tenderness. EYES: PERRLA, EOMI x 2, No injected conjunctiva, no nystagmus. EARS: Hearing grossly intact. Ear canals and tympanic membranes are within normal limits. MOUTH: Oropharynx within normal limits. NECK: Supple, trachea is midline, no adenopathy, no JVD, no carotid bruit, no c- spine tenderness, neck with full ROM. CHEST: Symmetric, no tenderness at palpation LUNGS: Clear to auscultation bilaterally. No wheezing or crackles. CVS: Regular rate and rhythm, S1 and S2 present, no murmurs or gallops appreciated. ABDOMEN: Soft, non-tender. No signs of distention. No rebound no guarding, and no masses palpated. Bowel sounds are normal. EXTREMITIES: FROM in all major joints, no edema, no cyanosis or clubbing. NEURO: Alert and oriented x 3. No acute neurological deficits. Speech is normal and follows commands. SKIN: Dry and warm Triage Information Reviewed: Yes Vital Signs On Initial Exam: Initial Vitals Temp Pulse Resp BP Pulse Ox 99 F 73 18 160/84 97 09/07/18 14:15 09/07/18 14:15 09/07/18 14:15 09/07/18 14:15 09/07/18 14:15 Vital Signs Reviewed: Yes Diagnostics - Vital Signs Vital Signs Temp Pulse Resp BP Pulse Ox 09/07/18 15:21 98 F 69 18 152/78 99 09/07/18 14:15 99 F 73 18 160/84 97 - Laboratory Lab Results: Lab Results 09/07/18 09/07/18 09/07/18 Range/Units 13:59 13:59 13:59 WBC 7.5 (3.5-10.8) 10^3/uL RBC 4.49 (3.70-4.87) 10^6 /uL Hgb 14.3 (12.0-16.0) g/dL Hct 43 (35-47) % MCV 95 (80-97) fL MCH 32 H (27-31) pg MCHC 34 (31-36) g/dL RDW 15 (10.5-15) % Plt Count 240 (150-450) 10^3/uL MPV 7.4 (7.4-10.4) fL Neut % (Auto) 77.9 % Lymph % (Auto) 11.6 % [facility] % (Auto) 9.0 % Eos % (Auto) 1.0 % Baso % (Auto) 0.5 % Absolute Neuts (auto) 5.8 (1.5-7.7) 10^3/ul Absolute Lymphs (auto) 0.9 L (1.0-4.8) 10^3/ul Absolute Monos (auto) 0.7 (0-0.8) 10^3/ul Absolute Eos (auto) 0.1 (0-0.6) 10^3/ul Absolute Basos (auto) 0.0 (0-0.2) 10^3/ul Absolute Nucleated RBC 0.0 10^3/ul Nucleated RBC % 0.0 Sodium 137 (135-145) mmol/L Potassium 3.8 (3.5-5.0) mmol/L Chloride 103 (101-111) mmol/L Carbon Dioxide 25 (22-32) mmol/L Anion Gap 9 (2-11) mmol/L BUN 8 (6-24) mg/dL Creatinine 0.88 (0.51-0.95) mg/dL Est GFR ( Amer) 74.1 (>60) Est GFR (Non-Af Amer) 61.2 (>60) BUN/Creatinine Ratio 9.1 (8-20) Glucose 117 H (70-100) mg/dL Lactic Acid 1.5 (0.5-2.0) mmol/L Calcium 10.3 (8.6-10.3) mg/dL Total Bilirubin 0.70 (0.2-1.0) mg/dL AST 46 H (13-39) U/L ALT 35 (7-52) U/L Alkaline Phosphatase 40 (34-104) U/L C-Reactive Protein 2.92 (<8.01) mg/L Total Protein 7.2 (6.4-8.9) g/dL Albumin 4.6 (3.2-5.2) g/dL Globulin 2.6 (2-4) g/dL Albumin/Globulin Ratio 1.8 (1-3) Amylase 45 (29-103) U/L Lipase 16 (11.0-82.0) U/L Result Diagrams: 09/07/18 13:59 09/07/18 13:59 Lab Statement: Any lab studies that have been ordered have been reviewed, and results considered in the medical decision making process. - CT Abd/Pel w/contrast CT Interpretation Completed By: Radiologist Summary of CT Findings: 1. As previously seen, there is colonic diverticulosis without evidence for acute diverticulitis. 2. No visibal renal, uretal or bladder calculi. ED Provider has reviewed this report. - EKG 1451 Cardiac Rate: NL - 73 bpm EKG Rhythm: Atrial Fibrillation Ectopy: None Re-Evaluation - Re-Evaluation First Eval Re-Evaluation Time: 19:45 Change: Improved Comment: Discussed results and plan for discharge with patient. Patient states she is feeling better. Abdominal Pain Fem Course/Dx - Course Course Of Treatment: This patient is a 33-year-old female who presents to the emergency department with a chief complaint of having left lower quadrant pain. The patient reports that she is being treated for an acute diverticulitis with ciprofloxacin and Flagyl. Shes been taking his medication for 2 weeks however the left lower quadrant pain is getting worse therefore she decided to come to the best department for further workup and management. The patient denies any nausea vomiting denies any fevers or chills, denies any diarrhea constipation. X-ray of the patient has past medical history significant for hypertension, dyslipidemia, CHF, and DVT for which the patient is taken Xarelto. In the ED course the patient was placed on a environmental monitoring technician. IV access was obtained, patient was given IV fluids, Zofran for nausea and morphine for pain. Blood test results without any significant abnormality except for glucose of 117, and AST of 46. Abdominal and pelvic CT IMPRESSION: 1. As previously seen, there is colonic diverticulosis without evidence for. acute diverticulitis. 2. No visible renal, ureteral or bladder calculi. After the patient was given the morphine and Zofran the patients symptoms have significantly improved. With abdominopelvic CT we rule out any abscess or perforation, the blood work is within normal limits therefore at this point we will discharge the patient home with follow-up with PCP. I discussed all my findings and test results with the patient and the patients sons and they agree with following up with the primary care physician. I did give the patient a prescription for [place] to control the pain. Patient understands and agrees. - Diagnoses Provider Diagnoses: LLQ pain Discharge - Sign-Out/Discharge Documenting (check all that apply): Patient Departure - Discharge Patient Received Moderate/Deep Sedation with Procedure: No - Discharge Plan Condition: Stable Disposition: HOME Prescriptions: Hydrocodone/Acetaminophen [[place] 5-325 Tablet] 1 each PO Q6H PRN #12 tablet MDD 4 PRN Reason: Pain Patient Education Materials: Abdominal Pain (ED) Referrals: Lorraine Gallo MD [Primary Care Provider] - Additional Instructions: Return to ED with any new or worsening symptoms. - Billing Disposition and Condition Condition: STABLE Disposition: Home - Attestation Statements Document Initiated by Scribe: Yes Documenting Scribe: Kong Tavera Provider For Whom [employer] is Documenting (Include Credential): Fredy Martinez MD Scribe Attestation: I, Kong Tavera, scribed for Fredy Martinez MD on 09/07/18 at 2106. Scribe Documentation Reviewed: Yes Provider Attestation: The documentation as recorded by the scribe, Kong Tavera accurately reflects the service I personally performed and the decisions made by me, Fredy Martinez MD Status of Scribe Document: Viewed
[2018-09-07] MEDS ORDERED: Morphine 4 MG/ML VIAL (1 ml) 4 MG/ML VIAL IV ONE (15:46)
[2018-09-07] MEDS ORDERED: NS 0.9% 1000 ML** 1,000 ML IV ONE (15:46)
[2018-09-07] MEDS ORDERED: Ondansetron INJ* 2 MG/ML VIAL IV ONE (15:46)
[2018-09-07 17:18] LABS: Urine Appearance Clear; Urine Bacteria Absent (Absent); Urine Bilirubin Negative (Negative); Urine Blood Negative (Negative); Urine Color Yellow; Urine Glucose Negative (Negative); Urine Ketones 1+ (Negative); Urine Nitrite Negative (Negative); Urine Protein Negative (Negative); Urine Red Blood Cell 1+(3-5/hpf) (Absent); Urine Specific Gravity 1.008 (1.010-1.030); Urine Squamous Epithelial Cell Present (Absent); Urine Urobilinogen Negative (Negative); Urine White Blood Cell Trace(0-5/hpf) (Absent)
[2018-09-07] MEDS ORDERED: Iodixanol* (CONTRAST) 320 MG/ML 100 ML SDV IV ONE (18:06)
[2018-09-07 19:56] VITALS: BP 135/81
== END 2018-09-07 20:46 | disposition home or self-care (01) ==
LOC: ED 14:10
DX: R10.32 Left lower quadrant pain (principal); E11.9 Type 2 diabetes mellitus without complications; I50.9 Heart failure, unspecified; I10 Essential (primary) hypertension
CPT/HCPCS: 36415; 74177; 80053; 81003; 81015; 82150; 83605; 83690; 85025; 86140; 87086; 93005; 96361; 96374; 96375; 99283; J2270; J2405; Q9967

== ENCOUNTER 2019-04-11 12:48 | Observation (INO) | payer MEDICARE ==
--- OUTSIDE RECORDS SUMMARY | 2019-04-11 13:02 | XMS REPORT | Continuity of Care Document ---
:1935 External Reference #:[id number] Author Name Lorraine Gallo M.D. (transmitted by agent of provider Meagan East ) Address [address] [place] [address], [place] [address] Care Team Providers Name Role Phone Lorraine Gallo MD - Internal Care Team Information Property Consultant [phone] Medicine Problems Active Problems Provider Date Type II [...] heart disease Shelley Grimm MD Onset: 05/26/2015 Social History Type Date Description Comments Sex Unknown Tobacco Use Start: Unknown Never Smoked Cigarettes ETOH Use Drinks 5 Alcoholic Beverages Per Week Tobacco Use Start: Unknown Patient has never smoked Recreational Drug Use Never Used Drugs Smoking Status Reviewed: 02/19/19 Patient has never smoked Exercise Type/Frequency Exercises sporadically Allergies, Adverse Reactions, Alerts Active Allergies Reaction Severity Comments Date Metformin diarrhea 01/29/2014 Inactive Allergies No Known Drug Allergy 06/28/2009 Medications Active Medications SIG Qnty Indications Ordering Date Provider Bactrim DS 1 by mouth twice a 14tabs Kassie Aldridge, 12/19/2018 800-160mg day for 7 days N.P. Tablets Actos 1 po qd 90tabs E11.9 Lorraine 03/06/2018 30mg Tablets Jada Gallo Wrist Brace/Suede for use at night g G56.01 Lorraine 03/06/2018 Finish/Right/Medium 56.03 Jada Gallo Misc Relion ALL-In-One For once daily use 1units E11.65 Lorraine 12/05/2017 Compactblood Glucose Jada Gallo Testing System Device Lancets for use once daily 100units E11.65 Lorraine 12/05/2017 33G Misc dx e11.65 Jada Gallo Relion Blood Glucose [...] 05/11/2015 5mg Tablets day Jada Gallo Furosemide Take 1 Tablet By 30tabs R06.02 Lorraine 05/11/2015 20mg Mouth Once Daily Jada Gallo Tablets Spacer For use with 1units J45.30 Lorraine 02/17/2015 inhalers twice Jada Gallo daily Freestyle Lite two times daily or 100units E13.9 Lorraine 04/05/2014 Lancets as directed Jada Gallo Freestyle Lite Test check fingerstick 50units E13.9 Lorraine 04/05/2014 Strips once daily Jada Gallo Proair HFA 2 puffs 4 times 8.5units J45.30 Lorraine 01/29/2014 daily as needed Jada Gallo 108(90Base) mcg/Act Aerosol Losartan Potassium Take 1 Tablet By 90tabs I10 Lorraine 10/29/2011 Mouth Once Daily Jada Gallo 50mg Tablets Verapamil HCL ER 1 by mouth every 90tabs Lorraine 09/19/2011 day Jdaa Gallo 240mg Tablets ER Simvastatin Take 1 Tablet By 90tabs Lorraine 05/22/2010 10mg Mouth AT Bedtime Jada Gallo Tablets Multivitamins With 1 po qd Unknown Calcium Tablets Cpap nightly Unknown Device Flonase Allergy spray 1 spray in Unknown Relief each nostril twice 50mcg/Act daily as needed Suspension Xarelto Take 1 Tablet By 30tabs I48.91 Lorraine 15mg Tablets Mouth Once Daily Jada Gallo Hydrocodone-Acetamin 1 tab by mouth 30tabs Lorraine ophen every 6-8 hours as Jada Gallo 5-325mg Tablets needed for pain History Medications Bactrim DS one by mouth 20tabs L02.224 Kassie Varn, 10/21/2018 - 800-160mg twice a day for 7 N.P. 10/31/2018 Tablets days Cipro 1 by mouth twice 14tabs R10.32 Kassie Varn, 09/03/2018 - 500mg Tablets a day for 7 days N.P. 09/10/2018 Metronidazole one tablet by 21tabs R10.32 Kassie Varn, 09/03/2018 - 500mg mouth 3 times N.P. 09/10/2018 Tablets daily for 7 days Dicyclomine HCL one po tid prn 60caps R10.32 Kassie Varn, 09/03/2018 - 10mg intestinal N.P. 10/20/2018 Capsules cramping Immunizations CPT Code Status Date Vaccine Reaction Lot # [id number] Given 02/20/2018 Influenza Virus Vaccine, [id number] Quadrivalent, Split, Preservative Free 02237 Given 03/01/2017 Influenza Virus Vaccine, [id number] Quadrivalent, Split, Preservative Free 38931 Given 01/20/2016 Influenza Virus Vaccine, no reacrion noted [id number] Quadrivalent, Split, .... hh Preservative Free 46269 Given 02/17/2015 Influenza Virus Vaccine, [id number] Quadrivalent, Split, Preservative Free 22781 Given 08/13/2014 Pneumococcal Conjugate [id number] Vaccine 13 Valent For Intramuscular Use 07498 Given 01/29/2014 Influenza Virus Vaccine, [id number] Quadrivalent, Split, Preservative Free 92225 Given 03/18/2013 Tdap - [id number] Tetanus/Diptheria/Acellular Pertussis 36397 Given 03/18/2013 Flu Vaccine Split Virus [id number] Preservative Free For Indiv 3Yr Older Q2037 Given 02/25/2012 Fluvirin Im 3Yrs And Older [id number] 03607 Given 10/29/2011 Zoster (Zostavax) [id number] Q2035 Given 04/02/2011 Afluria Vaccine [id number] 21952 Given 01/30/2010 Influenza Virus 3Yrs & Over 79889 Given 05/23/2009 Influenza Virus Vaccine, Pandemic Formulation Vital Signs Date Vital Result Comment 02/19/2019 2:28pm Height 61 inches 5'1" Weight 191.00 lb Heart Rate 74 /min BP Systolic 140 mmHg BP Diastolic 80 mmHg BP Systolic Sitting 143 mmHg recheck BP Diastolic Sitting 78 mmHg recheck O2 % BldC Oximetry 97 % BMI (Body Mass Index) 36.1 kg/m2 10/21/2018 11:18am Height 61 inches 5'1" Weight 191.00 lb Heart Rate 90 /min BP Systolic 137 mmHg BP Diastolic 80 mmHg Body Temperature 98.0 F O2 % BldC Oximetry 97 % BMI (Body Mass Index) 36.1 kg/m2 Results Test Date Facility Test Result H/L Range Note Laboratory test 02/19/2019 [facility] In House Hemoglobin A1c 6.3 5-7 finding Urine Culture And 10/21/2018 [facility] Urine Culture SEE RESULT 1, [address] [place] [address] [phone] Ua Routine 10/21/2018 [facility] In House Ua Specific 1.000 [place] Ua PH 6 Ua Color yellow Ua Appera clear Ua WBC trace Ua Protein negative Ua Glucose normal Ua Ketones + Ua Bilirubin negative Ua Urobilinogen normal Ua Nitrite negative Ua Occult Blood negative Lipid Profile 09/11/2018 [facility] Triglycerides 72 mg/dL 3 (Trig/Chol/HDL) [address] [place] [address] [phone] Cholesterol 117 mg/dL 4 HDL Cholesterol 55.0 mg/dL 5 LDL Cholesterol 48 mg/dL 6 Laboratory test 09/11/2018 [facility] Hemoglobin A1c 6.6 % High 4.0-5.[address] (Glyco HGB) [place] [address] [phone] CBC Auto Diff 09/07/2018 [facility] White Blood 7.5 Normal 3.5 -10.[address] Count 10^3/[place] [address] [phone] Red Blood Count 4.49 10^6/uL Normal 3.70-4.87 Hemoglobin 14.3 g/dL Normal 12.0-16.0 Hematocrit 43 % Normal 35-47 Mean Corpuscular Volume 95 fL Normal 80-97 Mean Corpuscular Hemoglobin 32 pg High 27-31 Mean Corpuscular HGB Conc 34 g/dL Normal 31-36 Red Cell Distribution Width 15 % Normal 10.5-15 Platelet Count 240 10^3/uL Normal 150-450 Mean Platelet Volume 7.4 fL Normal 7.4-10.4 Abs Neutrophils 5.8 10^3/uL Normal 1.5-7.7 Abs Lymphocytes 0.9 10^3/uL Low 1.0-4.8 Abs Monocytes 0.7 10^3/uL Normal 0-0.8 Abs Eosinophils 0.1 10^3/uL Normal 0-0.6 Abs Basophils 0.0 10^3/uL Normal 0-0.2 Abs Nucleated RBC 0.0 10^3/uL Granulocyte % 77.9 % Lymphocyte % 11.6 % Monocyte % 9.0 % Eosinophil % 1.0 % Basophil % 0.5 % Nucleated Red Blood Cells % 0.0 Comp Metabolic 09/07/2018 [facility] Sodium 137 mmol/L Normal 135-[address] [place] [address] [phone] Potassium 3.8 mmol/L Normal 3.5-5.0 Chloride 103 mmol/L Normal 101-111 Co2 Carbon Dioxide 25 mmol/L Normal 22-32 Anion Gap 9 mmol/L Normal 2-11 Glucose 117 mg/dL High 70-100 Blood Urea Nitrogen 8 mg/dL Normal 6-24 Creatinine 0.88 mg/dL Normal 0.51-0.95 BUN/Creatinine Ratio 9.1 Normal 8-20 Calcium 10.3 mg/dL Normal 8.6-10.3 Total Protein 7.2 g/dL Normal 6.4-8.9 Albumin 4.6 g/dL Normal 3.2-5.2 Globulin 2.6 g/dL Normal 2-4 Albumin/Globulin Ratio 1.8 Normal 1-3 Total Bilirubin 0.70 mg/dL Normal 0.2-1.0 Alkaline Phosphatase 40 U/L Normal 34-104 Alt 35 U/L Normal 7-52 Ast 46 U/L High 13-39 Egfr Non- 61.2 >60 Egfr 74.1 >60 8 Laboratory test 09/07/2018 [facility] Amylase 45 U/L Normal 29 -[address] [place] [address] [phone] Lipase 16 U/L Normal 11.0-82.0 C Reactive Protein 2.92 mg/L Normal <8.01 Lactic Acid 1.5 mmol/L Normal 0.5-2.0 9 Urinalysis Profile 09/07/2018 [facility] Urine Color Yellow [address] [place] [address] [phone] Urine Appearance Clear Urine Specific [place] 1.008 Low 1.010-1.030 Urine pH 7.0 Normal 5-9 Urine Urobilinogen Negative Negative Urine Ketones 1+ Abnormal Negative Urine Protein Negative Negative Urine Leukocytes Trace Abnormal Negative Urine Blood Negative Negative Urine Nitrite Negative Negative Urine Bilirubin Negative Negative Urine Glucose Negative Negative Urine White Blood Cell Trace(0-5/hpf) Absent Urine Red Blood Cell 1+(3-5/hpf) Abnormal Absent Urine Bacteria Absent Absent Urine Squamous Epithelial Cell Present Abnormal Absent Urine Culture And 09/07/2018 [facility] Urine Culture SEE RESULT [address] [place] [address] [phone] Urine Culture And 09/03/2018 [facility] Urine Culture SEE RESULT 11, [address] [place] [address] [phone] Ua Routine 09/03/2018 [facility] In House Ua Specific 1010 [place] Ua PH 6 Ua Color yellow Ua Appera clear Ua WBC ++ Ua Protein trace Ua Glucose negative Ua Ketones negative Ua Bilirubin negative Ua Urobilinogen negative Ua Nitrite negative Ua Occult Blood about 50 Poc Urinalysis 08/29/2018 [facility] Poc Glucose, Negative Negative [address] [place] [address] [phone] Poc Bilirubin, Urine Negative Negative Poc Ketone, Urine Negative Negative Poc Specific [place], Urine <= 1.005 Low 1.010-1.030 Poc Blood, Urine Trace-lysed Abnormal Negative Poc pH, Urine 6.0 Normal 5-9 Poc Protein, Urine Negative Negative Poc Urobilinogen, Urine 0.2 Negative Poc Nitrite, Urine Negative Negative Poc Leukocytes, Urine Negative Negative Poc Color, Urine Light yellow Poc Clarity, Urine Clear 13 Urine Culture And 08/26/2018 [facility] Urine SEE RESULT [address] [place] [address] [phone] Poc Urinalysis 08/26/2018 [facility] Poc Negative Negative [address] Glucose, [place] [address] Urine [phone] Poc Bilirubin, Urine Negative Negative Poc Ketone, Urine Trace Abnormal Negative Poc Specific [place], Urine 1.010 Normal 1.010-1.030 Poc Blood, Urine Trace-intact Abnormal Negative Poc pH, Urine 7.0 Normal 5-9 Poc Protein, Urine Negative Negative Poc Urobilinogen, Urine 0.2 Negative Poc Nitrite, Urine Negative Negative Poc Leukocytes, Urine 1+ Abnormal Negative Poc Color, Urine Yellow Poc Clarity, Urine Slightly Cloudy 15 1 [id number] 2 SEE RESULT BELOW Name: LIANNA CHASE : [address]: Kassie Aldridge NP Acct: [id number] Unit: [id number] AGE: 83 Location: [facility] Re10/21/18 SEX: F Status: REG REF SPEC: [id number] TIKI: 10/21/18-[address]: Kassie Aldridge NP REQ: [id number] RECD: 10/21/18 STATUS: COMP _ SOURCE: URINE SPDESC: ORDERED: Urine Culture COMMENTS: [id number] Urine Source: Random Procedure Result Reported Site Urine Culture Final 10/22/18- 1321 ML No growth of clinically significant organisms * ML - Main Lab . END OF REPORT DEPARTMENT OF PATHOLOGY, [address] [place] [address] Cyril Parker M.D. Director [facility] # [id number] 3 Desirable: <150 Borderline High: 150-199 High: 200-499 Very High: >500 4 Desirable: <200 Borderline High: 200-239 High: >239 5 Low: <40 Desirable: 40-60 High: >60 6 Desirable: <100 Near Optimal: 100-129 Borderline High: 130-159 High: 160-189 Very High: >189 7 Therapeutic target for the treatment of diabetes mellitus patients is <7% HBA1C, and in selective patients <6.0%. Please refer to [place] [employer] diabetic care guidelines for further information. 8 Because ethnic data is not always readily [...] 15-29 5 Kidney failure <15 (or dialysis) 9 [facility] Severe Sepsis and Septic Shock Management Bundle Measure requires all lactic acids initially measuring >2.0 mmol/L be repeated. 10 SEE RESULT BELOW Name: LIANNA CHASE : [address]: Fredy Martinez MD Acct: [id number] Unit: [id number] AGE: 83 Location: ED Re09/07/18 SEX: F Status: DEP ER SPEC: [id number] TIKI: 09/07/[address] [facility] [address]: Fredy Martinez MD REQ: [id number] RECD: 09/07/18 STATUS: PAULA GIRARD DR: [facility] Lorraine Gallo MD _ SOURCE: URINE SPDESC: ORDERED: Urine Culture Procedure Result Reported Site Urine Culture Final 09/09/18- 1144 ML No growth of clinically significant organisms * ML - Main Lab . END OF REPORT DEPARTMENT OF PATHOLOGY, [address] [place] [address] Cyril Parker M.D. Director [facility] # [id number] 12 SEE RESULT BELOW Name: LIANNA CHASE : [address]: Kassie Aldridge NP Acct: [id number] Unit: [id number] AGE: 83 Location: [facility] Re09/03/18 SEX: F Status: REG REF SPEC: [id number] TIKI: 09/03/[address] [facility] [address]: Kassie Aldridge NP REQ: [id number] RECD: 09/03/18 STATUS: COMP _ SOURCE: URINE SPDESC: ORDERED: Urine Culture COMMENTS: [id number] Urine Source: Random Procedure Result Reported Site Urine Culture Final 09/04/18- 1614 ML No growth of clinically significant organisms * ML - Main Lab . END OF REPORT DEPARTMENT OF PATHOLOGY, [address] [place] [address] Cyril Parker M.D. Director [facility] # [id number] 13 Info Specialist: [id number] 14 SEE RESULT BELOW Name: LIANNA CHASE : [address]: Charissa Prakash MD Acct: [id number] Unit: [id number] AGE: 83 Location: [facility] Re08/26/18 SEX: F Status: DEP ER SPEC: [id number] TIKI: 08/26/18-[address] [facility] [address]: Josué CHO REQ: [id number] RECD: 08/26/18-1256 STATUS: PAULA GIRARD DR: Charissa Gallo MD _ SOURCE: URINE SPDESC: ORDERED: Urine Culture Procedure Result Reported Site Urine Culture Final 08/27/18- 1212 ML No growth of clinically significant organisms * ML - Main Lab . END OF REPORT DEPARTMENT OF PATHOLOGY, [address] [place] [address] Cyril Parker M.D. Director [facility] # [id number] 15 Info Specialist: [id number] Procedures Date Code Description Status 01/06/2019 092366982 Diabetic Retinal Eye Exam Completed 04/24/2016 249332970 Diabetic Retinal Eye Exam Completed 02/08/2015 439994226 Diabetic Retinal Eye Exam Completed 08/23/2014 927865509 Bone Mineral Density Test Completed 01/11/2014 444442243 Diabetic Retinal Eye Exam Completed 07/25/2012 940735072 Diabetic Retinal Eye Exam Completed 03/18/2006 59287490 Mammogram Completed Medical Devices Description No Information Available Encounters Type Date Location Provider Dx Diagnosis Office Visit 10/21/2018 [facility] Kassie Aldridge, N39.0 Urinary tract 11:20a Medicine - [facility] N.P. infection, site not specified L02.224 Furuncle of groin Office Visit 10/02/2018 [facility] J45.909 Unspecified asthma , 1:45p [facility] uncomplicated [facility] G47.33 Obstructive sleep apnea (adult) (pediatric) Office Visit 09/11/2018 2:00p [facility] Internal Lorraine R10.32 Left lower Medicine - Alfredo Gallo M.D. quadrant pain R53.1 Weakness E11.9 Type 2 diabetes mellitus without complications Assessments Date Code Description Provider 02/19/2019 E11.9 Type 2 diabetes mellitus without Lorraine Gallo M.D. complications 02/19/2019 I10 Essential (primary) hypertension Lorraine Gallo M.D. 02/19/2019 G47.00 Insomnia, unspecified Lorraine Gallo M.D. 10/21/2018 N39.0 Urinary tract infection, site not specified Kassie Aldridge, N.P. 10/21/2018 L02.224 Furuncle of groin Kassie Aldridge, N.P. 10/02/2018 J45.909 Unspecified asthma, uncomplicated Shelley Grimm MD 10/02/2018 G47.33 Obstructive sleep apnea (adult) (pediatric) Shleley Grimm MD 09/16/2018 Z00.00 Encounter for general adult medical Lorraine Gallo M.D. examination without abno 09/16/2018 E11.9 Type 2 diabetes mellitus without Lorraine Gallo M.D. complications 09/16/2018 G47.00 Insomnia, unspecified Lorraine Gallo M.D. 09/11/2018 R10.32 Left lower quadrant pain Lorraine Gallo M.D. 09/11/2018 R53.1 Weakness Lorraine Gallo M.D. 09/11/2018 E11.9 Type 2 diabetes mellitus without Lorraine Gallo M.D. complications 09/03/2018 N39.0 Urinary tract infection, site not specified Kassie Aldridge, N.P. 09/03/2018 R10.32 Left lower quadrant pain Kassie Aldridge, N.P. Plan of Treatment Future Appointment(s):08/21/2019 2:20 pm - Lorraine Gall[facility] M.D. at [facility] 1[facility] - Shelley Grimm MD at [facility]02/19/2019 - Lorraine Gallo M.D.E11.9 Type 2 diabetes mellitus without complicationsComments:Your diabetes is doing great, A1C is 6.3, lower than before.Follow up: Essential (primary) hypertensionComments:Your blood pressure is fine. Continue the same gzpoggixhtF58.00 Insomnia, unspecifiedComments:Consider help at home for cleaningAvoid the evening newsDo crosswords Look at the sleep hygiene guidelines Functional Status Functional Condition Comment Date Status Cpap Active Mental Status Description No Information Available Referrals Description No Information Available
--- NOTE | 2019-04-11 13:26 | ED ---
Shortness of Breath - HPI Summary HPI Summary: This patient is an 84 year old female with a Hx of CHF and asthma presenting to [facility] with a chief complaint of SOB. She states she is retaining fluid, edema to bilateral lower ext. She is unsure when the edema started. She states her sob has been worsening the past few days and started one week ago. She reports a mildly productive cough. She denies chest pain. She states she took her prescribed Lasix (20 mg) this morning that did not improve breathing. She states she is on blood thinners for AFIB. Was diagnosed w CHF 4 years ago during admission but has not had exacerbations since. Denies orthopnea or PND at home, but states she feels SOB here when lying flat. - History of Current Complaint Chief Complaint: EDShortnessOfBreath Time Seen by Provider: 04/11/19 13:06 Hx Obtained From: Patient Onset/Duration: Lasting Weeks - Allergy/Home Medications Allergies/Adverse Reactions: Allergies Allergy/AdvReac Type Severity Reaction Status Date / Time metformin Allergy Diarrhea Verified 04/11/19 12:54 Home Medications: Home Medications Fluticas/Salmet 115/21 HFA(NF) [Advair HFA 115/21 (NF)] 2 puff INH BID 04/11/19 [History Confirmed 04/11/19] PMH/Surg Hx/FS Hx/Imm Hx Endocrine/Hematology History: Reports: Hx Diabetes - type 2 dm Cardiovascular History: Reports: Hx Congestive Heart Failure, Hx Hypertension Respiratory History: Reports: Hx Asthma, Other Respiratory Problems/Disorders - HX OF PNEUMONIA SEP 08 2014 - Surgical History Surgery Procedure, Year, and Place: FOOT SURGERY, LEG SURGERY Infectious Disease History: No Infectious Disease History: Reports: Hx Shingles Denies: Traveled Outside the [place] in Last 30 Days - Family History Known Family History: Positive: Cardiac Disease, Hypertension - Social History Alcohol Use: Rare Alcohol Amount: WINE Substance Use Type: Reports: None Smoking Status (MU): Never Smoked Tobacco Review of Systems Negative: Chest Pain Positive: Shortness Of Breath, Cough Positive: Edema All Other Systems Reviewed And Are Negative: Yes Physical Exam - Summary Physical Exam Summary: Constitutional: Well-developed, Well-nourished, Alert. (-) Distressed Skin: Warm, Dry HENT: Normocephalic; Atraumatic Eyes: Conjunctiva normal Neck: Musculoskeletal ROM normal neck. (-) JVD, (-) Stridor, (-) Nuchal rigidity Cardio: Rhythm regular, rate normal, Heart sounds normal; Intact distal pulses; Radial pulses are 2+ and symmetric. (-) Murmur Pulmonary/Chest wall: Effort normal. bilateral crackles. (-) Respiratory distress, (-) Wheezes Abd: Soft, (-) tenderness, (-) Distension, (-) Guarding, (-) Rebound Musculoskeletal: 2+ Pitting Edema to the bilateral lower extremities. Lymph: (-) Cervical adenopathy Neuro: Alert, Oriented x3 Psych: Mood and affect Normal Triage Information Reviewed: Yes Vital Signs On Initial Exam: Initial Vitals Temp Pulse Resp BP Pulse Ox 98.8 F 86 16 113/74 95 04/11/19 12:50 04/11/19 12:50 04/11/19 12:50 04/11/19 12:50 04/11/19 12:50 Vital Signs Reviewed: Yes Procedures - Sedation Patient Received Moderate/Deep Sedation with Procedure: No Diagnostics - Vital Signs Vital Signs Temp Pulse Resp BP Pulse Ox 04/11/19 12:50 98.8 F 86 16 113/74 95 - Laboratory Result Diagrams: 04/11/19 14:40 04/11/19 14:40 Lab Statement: Any lab studies that have been ordered have been reviewed, and results considered in the medical decision making process. - Radiology CXR Radiology Interpretation Completed By: Radiologist Summary of Radiographic Findings: 1. Mild interstitial pulmonary edema is possible. 2. Similar cardiomegaly with probably left atrial enlargement. ED Provider has reviewed this report. - EKG 1431 Cardiac Rate: NL - 80 BPM EKG Rhythm: Atrial Fibrillation Summary of EKG Findings: Minimal ST elevations in V4-V6. Re-Evaluation - Re-Evaluation First Eval Re-Evaluation Time: 16:20 Change: Improved Comment: She feels better, has good urine output, and will ambulate around the ED. Second Eval Re-Evaluation Time: 17:00 Comment: Patient ate sandwhich and ambulated in ED, states she is still feeling lightheaded and SOB. Lowest O2 sat 91% when ambulating. Given that she lives alone, she does not feel comfortable staying home alone we will admit for further diueresis. She has has good success w diuresis here w IV lasix. Course/Dx - Course Course Of Treatment: 84 y/o F w hx Afib, CHF p/w SOB. Shortness of breath ddx: Most likely 2/2 CHF - has pitting edema, crackles and pulm edema on CXR. Will give 40 IV lasix for diuresis, and reassess. Also consider: COPD exacerbation/ asthma - no h/o COPD, no wheezing on exam. Low suspicion. PNA - no sputum production, no fevers or chills. No leukocytosis. CXR w/o infiltrate. Low suspicion. PTX - breath sounds equal, no risk factors for PTX, CXR w/o e/o PTX. ACS - no CP, no EKG changes, initial trop not elevated. Low suspicion. PE - no risk factors for PE, no unilateral leg . On blood thinners. - Diagnoses Provider Diagnoses: CHF (congestive heart failure) Discharge ED - Sign-Out/Discharge Documenting (check all that apply): Patient Departure - Admission, accepted by Dr. Lechuga, Hospitalist - Discharge Plan Condition: Improved Disposition: ADMITTED TO [facility] - Billing Disposition and Condition Condition: IMPROVED Disposition: Admitted to [facility] - Attestation Statements Document Initiated by Gwen: Yes Documenting Scribe: Kong Tavera Provider For Whom Gwen is Documenting (Include Credential): Manolo Ferrer MD Scribe Attestation: Kong Lara, scribed for Manolo Ferrer MD on 04/12/19 at 1108. Scribe Documentation Reviewed: Yes Provider Attestation: The documentation as recorded by the Kong landa accurately reflects the service I personally performed and the decisions made by , Manolo Ferrer MD Status of Scribe Document: Viewed
[2019-04-11 15:00] LABS: ABS Basophils 0.1 10^3/ul (0-0.2); ABS Eosinophils 0.2 10^3/ul (0-0.6); ABS Lymphocytes 0.9 10^3/ul (1.0-4.8); ABS Monocytes 0.6 10^3/ul (0-0.8); ABS Neutrophils 5.4 10^3/ul (1.5-7.7); Eosinophil % 2.9 %; Hematocrit 39 % (35-47); Hemoglobin 13.3 g/dL (12.0-16.0); Lymphocyte % 12.8 %; Mean Corpuscular HGB Conc 34 g/dL (31-36); Mean Corpuscular Hemoglobin 33 pg (27-31); Mean Corpuscular Volume 96 fL (80-97); Mean Platelet Volume 7.5 fL (7.4-10.4); Platelet Count 234 10^3/uL (150-450); Red Blood Count 4.07 10^6 /uL (3.70-4.87); Red Cell Distribution Width 15 % (10-15); White Blood Count 7.2 10^3/uL (3.5-10.8)
[2019-04-11 15:21] LABS: Albumin 4.2 g/dL (3.2-5.2); Albumin/Globulin Ratio 1.4 (1-3); BUN/Creatinine Ratio 16.5 (8-20); Calcium 10.4 mg/dL (8.6-10.3); EGFR African American 71.1 (>60); EGFR Non-African American 58.8 (>60); Potassium 4.3 mmol/L (3.5-5.0); Total Bilirubin 1.1 mg/dL (0.2-1.0); Total Protein 7.2 g/dL (6.4-8.9)
[2019-04-11 15:23] LABS: Troponin I 0.02 ng/mL (<0.03)
[2019-04-11] MEDS ORDERED: Furosemide IV* 10 MG/ML VIAL (40 MG) IV ONE (15:34)
--- NOTE | 2019-04-11 17:48 | ADMNOTE ---
Subjective Date of Service: 04/11/19 Interval History: ADMISSION HISTORY AND PHYSICAL EXAM: Allergies Allergy/AdvReac Type Severity Reaction Status Date / Time metformin Allergy Diarrhea Verified 04/11/19 12:54 Home Medications Medication Instructions Recorded Confirmed Type Losartan Potassium 50 mg PO DAILY 02/17/15 04/11/19 History Proair Hfa* 2 puff INH QID 02/17/15 04/11/19 History Simvastatin TAB(NF) [Zocor 10 MG 10 mg PO DAILY 02/17/15 04/11/19 History (NF)] Verapamil HCl [Verapamil ER] 240 mg PO DAILY 02/17/15 04/11/19 History Furosemide TAB* [Lasix TAB*] 20 mg PO DAILY 08/26/18 04/11/19 History Linagliptin (NF) [Tradjenta (NF)] 5 mg PO DAILY 08/26/18 04/11/19 History Pioglitazone TAB* [Actos TAB*] 30 mg PO DAILY 08/26/18 04/11/19 History Rivaroxaban TAB(*) [Xarelto 15 15 mg PO DAILY 08/26/18 04/11/19 History mg(*)] Fluticas/Salmet 115/21 HFA(NF) 2 puff INH BID 04/11/19 04/11/19 History [Advair HFA 115/21 (NF)] HPI: Over the past few weeks the patient has been more SOB and her legs swelled up. It was worse the past few days. She had some cough with white sputum about a week ago but that part got better. She slept poorly last night, even with her CPAP. No chest pain. She does not weigh herself. She gets almost all her food from [employer]. Social History: Findings - No alcohol or tobacco use. Lives alone. 3 children , 2 are local and are her SDM's (Terell and Vito) Past Medical History: Findings - Hx CHF, sees Dr. Jania Faye yearly, sees Dr. Grimm, ADAM, DM, HTN, HL Review of Systems - Measurements Intake and Output: Intake and Output Last 24 Hours 04/09/19 04/10/19 04/11/19 04/12/19 06:59 06:59 06:59 06:59 Weight 195 lb - Review of Systems Constitutional Symptoms: Positive: Other - unknown weight change Dermatology: Positive: Normal HEENT: Positive: Normal Eyes: Positive: Normal Thyroid: Positive: Normal Pulmonary: Positive: Cough, Shortness of Breath Cardiology: Positive: Shortness of Breath, Edema Gastroenterology: Positive: Normal Genital - Urinary: Positive: Normal Musculoskeletal: Positive: Joint Pain Endocrinology: Positive: Diabetes Mellitus Hematologic/Lymphatic: Negative: Anemia, Easy Bruising, Hx Leukemia, Hx Lymphoma, Use of Anticoagulant, Use of Antiplatelet Drugs, Other Neurology: Positive: Normal Psychiatry: Positive: Normal Allergic/Immunologic: Negative: Hx Anaphylaxis, Hx Angioedema, Hx Environmental, Hx Seasonal, Asthma, Hx HIV, Immunocompromise, Swollen Glands LymphNodes, Other Objective Vital Signs - 8 hr 04/11/19 04/11/19 04/11/19 12:50 13:04 13:14 Temperature 98.8 F Pulse Rate 86 85 84 Respiratory 16 Rate Blood Pressure 113/74 130/98 (mmHg) O2 Sat by Pulse 95 91 96 Oximetry Oxygen Devices in Use Now: None Appearance: Alert, sitting on the edge of the bed. Sl anxious but otherwise looks comfortable. Eyes: No Scleral Icterus Respiratory: Symmetrical Chest Expansion and Respiratory Effort, Clear to Auscultation, Clear to Percussion Cardiovascular: RRR, No Edema, - - 2/6 systolic murmur R > L Extremities: No Clubbing, Cyanosis, - - 3+ edema BL Skin: No Rash or Ulcers, No Nodules or Sclerosis Neurological: Alert and Oriented x 3, NL Sensation Result Diagrams: 04/11/19 14:40 04/11/19 14:40 Assess/Plan/Problems-Billing Assessment: - Patient Problems (1) CHF (congestive heart failure) Current Visit: Yes Status: Acute Code(s): I50.9 - HEART FAILURE, UNSPECIFIED SNOMED Code(s): 92056104 Comment: Furosemide 40 mg IV given in ED, pt states she voided 4-5 times. Mild sx's at most at present. Will increase daily furosemide to 40 mg until leg edema resolved. Pt instructed to use her scale, write down her weight every day. (2) Diabetes Current Visit: Yes Status: Acute Code(s): E11.9 - TYPE 2 DIABETES MELLITUS WITHOUT COMPLICATIONS SNOMED Code(s): 19374277 Comment: Continue her usual oral DM meds. FS glucose with Lispro SS. (3) ADAM (obstructive sleep apnea) Current Visit: Yes Status: Acute Code(s): G47.33 - OBSTRUCTIVE SLEEP APNEA ( ADULT) (PEDIATRIC) SNOMED Code(s): 14242992 Comment: Uses CPAP at home, no O2. She says it is set at 13. Hospital CPAP ordered.
[2019-04-11] MEDS ORDERED: Dextrose 50% VIAL 50 ml IV PUSH PRN (18:50)
[2019-04-11] MEDS ORDERED: CMCS:Simvastatin TAB(NF) 10 MG TAB PO SCH (21:00)
[2019-04-11] MEDS: Albuterol HFA INHALER* 8 gm MDI INH SCH (22:27)
[2019-04-11] MEDS: Mometasone/Formoter 200/5 MDI INH SCH (22:27)
[2019-04-11] MEDS: Rivaroxaban TAB(*) 15 MG PO SCH (22:28)
[2019-04-11] MEDS: Insulin LISPRO* 1 UNITS UNIT SUBCUT SCH (22:28)
[2019-04-12] MEDS: Mometasone/Formoter 200/5 MDI INH SCH (07:48)
[2019-04-12] MEDS: Insulin LISPRO* 1 UNITS UNIT SUBCUT SCH (08:10)
[2019-04-12] MEDS ORDERED: Furosemide TAB* 20 MG PO SCH (09:00)
[2019-04-12] MEDS ORDERED: LINAGLIPTIN 5 MG PO SCH (09:00)
[2019-04-12] MEDS ORDERED: Losartan TAB* 25 MG PO SCH (09:00)
[2019-04-12] MEDS ORDERED: Pioglitazone TAB* 30 MG PO SCH (09:00)
[2019-04-12] MEDS: Rivaroxaban TAB(*) 15 MG PO SCH (09:03)
--- NOTE | 2019-04-12 11:40 | DS ---
CC: Dr. Lorraine Gallo; Dr. Aguilar Faye * DISCHARGE SUMMARY: DATE OF ADMISSION: 04/11/19 DATE OF DISCHARGE: 04/12/19 HISTORY OF PRESENT ILLNESS/HOSPITAL COURSE: This 84-year-old woman presented with history of several weeks of getting progressively more short of breath and having her legs swell up. About a week ago, she had some cough with white sputum, but the cough and the sputum resolved. Last night was the first night she slept poorly. She uses her CPAP regularly. She does not use home oxygen. She was lying flat every night. She has a scale at home, but does not weigh herself. She gets all her food from [employer] and does not eat any salty snacks. The rest of the history and physical exam are detailed in the admission note. The patient received 40 mg of furosemide in the emergency room. She voided 4 or 5 times. The amount was not recorded as far as I can tell. She did not require oxygen at any time during her hospital stay. She slept somewhat fitfully during the night in the hospital due to using the hospital CPAP rather than her own CPAP. She seemed in very good condition at the time of discharge. Her pedal edema had resolved a little bit, probably from the combination of lying in bed all night and the intravenous furosemide she received in the emergency room. Her furosemide dose has been doubled to 20 mg 2 tablets daily for a total of 40 mg daily. She will use a scale at home to weigh herself every day and record the weight. She was instructed to take an extra furosemide and also call her doctor if her weight goes up more than 3 pounds from her lowest weight. She will have a BMP in 4 days. I note her BNP was 301 on this admission. DISCHARGE DIAGNOSES: 1. Congestive heart failure. 2. Diabetes mellitus. 3. Obstructive sleep apnea. 4. History of deep venous thrombosis. DISCHARGE MEDICATIONS: 1. Furosemide 20 mg 2 tablets daily. 2. Simvastatin 10 mg daily. 3. ProAir 2 puffs 4 times a day. 4. Losartan 50 mg daily. 5. Verapamil 240 mg daily. 6. Pioglitazone 30 mg daily. 7. Rivaroxaban 15 mg daily. 8. Linagliptin 5 mg daily. 9. Fluticasone/formoterol 115/21 two puffs b.i.d. CONDITION ON DISCHARGE: Improved. DISPOSITION ON DISCHARGE: Discharged home. [id number]/CPS #: [id number] JESI
[2019-04-12] MEDS: Albuterol HFA INHALER* 8 gm MDI INH SCH (11:52)
[2019-04-12 11:58] VITALS: BP 132/52
[2019-04-12] MEDS ORDERED: Rivaroxaban TAB(*) 15 MG PO SCH (21:00)
== END 2019-04-12 12:45 | disposition home or self-care (01) ==
LOC: ED 12:48 → INTOOBSV 18:26 → MEDTELE 18:26
PROVIDERS: ADMIT Internal Medicine; ATTEND Internal Medicine
DX: I50.9 Heart failure, unspecified (principal); E11.9 Type 2 diabetes mellitus without complications; G47.33 Obstructive sleep apnea (adult) (pediatric); Z86.718 Personal history of other venous thrombosis and embolism; Z79.899 Other long term (current) drug therapy; R05 Cough; R06.02 Shortness of breath; R94.31 Abnormal electrocardiogram [ECG] [EKG]; R60.0 Localized edema
CPT/HCPCS: 36415; 71045; 80053; 83880; 84484; 85025; 93005; 94640; 94660; 96374; 99284; A9270-GY; G0378; J1940